=== PATIENT | female | born 1960 | race Caucasian/White ===

== ENCOUNTER → 2017-09-20 16:56 | Outpatient (CLI) | payer MEDICAID, SELFPAY ==
--- NOTE | 2017-09-20 17:00 | RAD_ITS ---
STUDY: X-RAY CHEST REASON FOR EXAM: Female, 56 years old. Epigastric pain TECHNIQUE: PA and lateral views of the chest. COMPARISON: None. FINDINGS: Lungs are adequately inflated. Mildly elevated left hemidiaphragm with left basilar atelectasis. Lungs are otherwise clear. There is no demonstrated pleural abnormality. Normal size heart. Normal mediastinum and savanna. Normal visualized pulmonary arteries. Normal visualized aortic arch and descending thoracic aorta. Normal visualized thoracic spine. Normal visualized ribs, clavicles, and shoulders. There is no demonstrated abnormality of the visualized soft tissue structures of the upper abdomen. RAD/Chest PA and Lateral IMPRESSION: No acute findings Electronically Signed: Rei Abreu DO at 18:08 EDT Tel , Service support ,
== END ==
PROVIDERS: Family Provider Family Medicine; PCP Family Medicine; Visit Provider Family Medicine
DX: R10.13 Epigastric pain (principal)
CPT/HCPCS: 71046

== ENCOUNTER → 2017-10-03 09:51 | Outpatient (CLI) | payer MEDICAID, SELFPAY ==
--- NOTE | 2017-10-03 09:54 | RAD_ITS ---
STUDY: AIR-CONTRAST UPPER GI SERIES. REASON FOR EXAM: Female, 57 years old. Epigastric pain and vomiting. FLUOROSCOPY TIME (if supplied): (0:48) minutes/seconds TECHNIQUE: The patient ingested barium. Multiple images of the esophagus stomach and duodenum were obtained. COMPARISON: None. FINDINGS: There is evidence of a small sliding hiatal hernia without gastroesophageal reflux. The remainder of the stomach and duodenum are unremarkable. There is no evidence of ulceration. RAD/Upper GI Series Only IMPRESSION: Small sliding hiatal hernia without gastroesophageal reflux at this time. Electronically Signed: Anil Higuera MD at 13:52 EDT Tel [phone], Service support ,
== END ==
PROVIDERS: Family Provider Family Medicine; PCP Family Medicine; Visit Provider Family Medicine
DX: R10.13 Epigastric pain (principal)
CPT/HCPCS: 74246

== ENCOUNTER → 2017-10-28 07:41 | Outpatient (CLI) | payer MEDICAID, SELFPAY ==
--- NOTE | 2017-10-28 07:56 | US_ITS ---
STUDY: ABDOMINAL ULTRASOUND - RIGHT UPPER QUADRANT REASON FOR VISIT: Female, 57 years old. Dyspepsia. Chest pain. History of hiatal hernia. TECHNIQUE: Ultrasound evaluation of the right upper quadrant was performed with real-time and static lacey-scale imaging. TECHNICAL QUALITY: Adequate. COMPARISON: CT of the abdomen and pelvis, February 18, 2016. FINDINGS: Liver: The liver measures 16.8 cm. There is increased echogenicity consistent with fatty infiltration. The bile ducts are within normal limits. There is hepatic color flow. The direction of portal flow is hepatopetal. There is no demonstrated mass lesion. Gallbladder: Normal distended gallbladder. The gallbladder wall measures 2.4 mm. There is a negative sonographic Chan's sign. There is no pericholecystic fluid. There are no gallstones. Common Bile Duct (C.B.D.): The common bile duct measures 4 mm. Pancreas: Normal size of the head, body and tail of the pancreas. The There is no demonstrated pancreatic mass or cyst. Right Kidney: Normal size of the right kidney. The right kidney measures 10.5 cm. Normal renal cortex. The right cortex measures 1.5 cm. There is no demonstrated renal mass or cyst. There is no right hydronephrosis. US/Abdomen Limited IMPRESSION: 1. Fatty infiltration of the liver without focal mass. 2. Echogenic pancreas suggesting fatty infiltration. Electronically Signed: Ward Key DO at 23:21 EDT Tel [phone], Service support ,
[2017-10-28 08:23] LABS: Hematocrit 46.6 % (37-47); Hemoglobin 15.4 g/dl (12.0-15.0); Mean Corpuscular Hgb 32.2 pg (27.0-32.0); Mean Corpuscular Volume 97.3 fL (81-99); Mean Platelet Vol. 9.7 fl (6.2-12.0); Platelet Count 246 K/mm3 (150-450); RBC Distribution Width CV 13.5 % (11.6-14.6); RBC Distribution Width SD 47.2 fl (35.1-43.9); Red Blood Count 4.79 M/mm3 (4.2-5.4); White Blood Count 8.1 K/mm3 (4.4-11.0)
[2017-10-28 08:29] LABS: Scan Indicated on CBC? Y/N NO
[2017-10-28 09:13] LABS: ALB/GLOB Ratio 0.8 RATIO (0.9-2.4); AST(SGOT) 25 U/L (15-37); Alanine Aminotransfer ALT/SGPT 33 U/L (13-56); Albumin, Serum 3.4 g/dL (3.2-5.0); Alkaline Phosphatase 120 U/L (45-117); Anion Gap 5 (5-15); BUN 8 mg/dL (7-18); BUN/Creat Ratio 10.1 RATIO (10-20); Calcium,Total 8.9 mg/dL (8.5-10.1); Chloride 106 mmol/L (98-107); Cholesterol 150 mg/dL (200); Creatinine, Serum 0.79 mg/dL (0.55-1.02); EST Glomerular Filtration Rate 79 mL/min (>60); Est Glom Filt Rate - Afr Amer 95 mL/min (>60); Globulin 4.2 g/dL (2.2-4.2); Glucose 141 mg/dL (74-106); High Density Lipoprotein 52 mg/dL; Potassium 3.6 mmol/L (3.5-5.1); Protein, Total 7.6 g/dL (6.4-8.2); Sodium Level 140 mmol/L (136-145); T4 Free Direct 1.24 ng/dL (0.76-1.46); Thyroid Stim Hormone (TSH) 1.27 uIU/mL (0.358-3.74); Triglycerides 217 mg/dL; Very Low Density Lipoprotein 43 mg/dL (5-40)
== END ==
PROVIDERS: Family Provider Family Medicine; PCP Family Medicine; Visit Provider Family Medicine
DX: R10.13 Epigastric pain (principal); E03.9 Hypothyroidism, unspecified; E78.5 Hyperlipidemia, unspecified; I67.1 Cerebral aneurysm, nonruptured
CPT/HCPCS: 36415; 76705; 80053; 80061; 84439; 84443; 85027

== ENCOUNTER 2018-05-08 07:26 | Day surgery (SDC) | payer MEDICAID, SELFPAY ==
[2018-04-25 15:25] VITALS: BMI 30.6
[2018-05-08] VITALS (7 sets, daily range): BP systolic 132–140; BP diastolic 80–86; PULSE 74–89; RESP 18; TEMP 36.3–36.7; O2SAT 96–100; BMI 28.1
--- NOTE | 2018-05-08 | GASB_PTH ---
PATIENT: SOPHIE STARKEY LOC: EN U#:[id number] AGE/SX: 57/F ROOM: RE05/08/[address]: Dr. Lauren Bruner MD : 1960 BED: DIS: 05/08/2018 SPEC #: [id number] RECD: 05/08/18 13:39 STATUS: PETER REBora #: [id number] GRACE: 05/08/18 00:[address]: Lauren Bruner DEPT: SURGICAL PATHOLOGY RECD BY: Abdelrahman Duarte ENTERED: 05/08/18 13:40 SP TYPE: Gastric Bx OTHR DR: Dr. Caleb Fountain MD Tissues: A - Gastric mucous membrane B - Gastric mucous membrane C - Ascending colon D - Transverse colon E - Rectum, NOS Procedures: Special Stain Group II Surgery Specimen Level IV Alcian Blue/PAS (control) HEADER OPERATION: Colonoscopy, EGD ([facility] [place]) PRE-OP DIAGNOSIS: GERD, screening colon TISSUE SUBMITTED: A - Antral biopsy for histo and H. pylori, B - GE junction biopsy, C - Proximal ascending colon polyp biopsy, D - Transverse colon polyp biopsy, E - Rectal polyp MICROSCOPIC DIAGNOSIS A. Antral biopsy: Mild gastritis. See microscopic description and comment. B. GE junction, biopsy: Fragments of gastroesophageal mucosa with focal intestinal metaplasia (goblet cell metaplasia) consistent with Gardner's esophagus. Focal chronic inflammation. Negative for dysplasia. See comment. C. Ascending colon polyp, biopsy: Fragments of tubular adenoma. D. Transverse colon polyp, biopsy: Fragments of tubular adenoma. E. Rectal colon polyp, biopsy: Fragments of tubular adenoma. SJ:cam 05/09/18 COMMENT A. The results of immunohistochemistry for Helicobacter pylori will be reported separately ([id number]). B. Alcian blue/PAS stain with matched control is used in the evaluation of the specimen. MICROSCOPIC DESCRIPTION Slides are reviewed. A. The specimen shows fragments of gastric mucosa with chronic inflammatory cell infiltrates in the lamina propria consisting of lymphocytes and plasma cells, consistent with mild chronic gastritis. GROSS DESCRIPTION A - Received in fixative is one container labeled with the patient's name and designated antral biopsy. The specimen consists of two irregular fragments of light roach soft tissue that in aggregate measure 0.5 x 0.3 x 0.1 cm. The specimen is totally submitted in one cassette. B - Received in fixative is one container labeled with the patient's name and designated GE junction biopsy. The specimen consists of three irregular fragments of light roach soft tissue that in aggregate measure 0.6 x 0.3 x 0.1 cm. The specimen is totally submitted in one cassette. C - Received in fixative is one container labeled with the patient's name and designated ascending polyp biopsy. The specimen consists of multiple irregular fragments of light roach soft tissue that in aggregate measure 2 x 0.5 x 0.1 cm. The specimen is totally submitted in one cassette. D - Received in fixative is one container labeled with the patient's name and designated transverse polyp biopsy. The specimen consists of multiple irregular fragments of light roach soft tissue that in aggregate measure 0.5 x 0.5 x 0.1 cm. The specimen is totally submitted in one cassette. E - Received in fixative is one container labeled with the patient's name and designated rectal polyp. The specimen consists of multiple irregular fragments of light roach soft tissue that in aggregate measure 0.5 x 0.5 x 0.1 cm. The specimen is totally submitted in one cassette. / SJ:cam 05/08/18 TC:1 CPT: 52144 x5, 94990
--- NOTE | 2018-05-08 08:15 | IMM_PTH ---
PATIENT: SOPHIE STARKEY LOC: EN U#:[id number] AGE/SX: 57/F ROOM: RE05/08/[address]: Dr. Lauren Bruner MD : 1960 BED: DIS: 05/08/2018 SPEC #: [id number] RECD: 05/08/18 14:03 STATUS: PETER CHIOMA #: [id number] GRACE: 05/08/18 08:[address]: Lauren Bruner DEPT: IMMUNOHISTOCHEMISTRY RECD BY: Fernanda Puckett ENTERED: 05/08/18 14:03 SP TYPE: IMMUNO OTHR DR: Dr. Caleb Fountain MD Tissues: A - Stomach, NOS Procedures: H Pylori (initial) PHYSICIAN & INSTITUTION [place] [id number] SPECIMEN INFORMATION: Tissue Source: A - Antral biopsy Clinical Info: GERD, screening colon Specimen Number: [id number] CPT code: 48155 METHODOLOGY: Deparaffinized sections of prefer/formalin-fixed tissue or PAP/DQ stained slides are incubated with monoclonal/polyclonal antibodies/oligonucleotide probes. Localization is made via biotin free immunoperoxidase method. Appropriate controls are performed and reacted as expected. Results on target cell population are indicated in the following table: RESULTS: ANTIBODY / CLONE RESULT Block A H Pylori (polyclonal) negative These tests were developed and their performance characteristics determined by [facility]. They may not have been cleared or approved by the U.S. Food and Drug Administration. The FDA has determined that such clearance or approval is not necessary. INTERPRETATION: A. Antral biopsy: Negative for Helicobacter pylori organisms. SJ:cam 05/09/18
--- NOTE | 2018-05-08 10:04 | OP.ENDO_ITS ---
Patient Name: Nerissa Beach Procedure Date: 05/08/2018 9:06 AM Date of : 1960 Age: 57 Procedure: Upper GI endoscopy Indications: Heartburn, Follow-up of gastro-esophageal reflux disease Providers: Lauren Bruner MD Medicines: Monitored Anesthesia Care Patient Profile: This is a 57 year old female. Complications: No immediate complications. Procedure: Pre-Anesthesia Assessment: - Prior to the procedure, a History and Physical was performed, and patient medications and allergies were reviewed. The patient's tolerance of previous anesthesia was also reviewed. The risks and benefits of the procedure and the sedation options and risks were discussed with the patient. All questions were answered, and informed consent was obtained. Prior Anticoagulants: The patient has taken no previous anticoagulant or antiplatelet agents. ASA Grade Assessment: II - A patient with mild systemic disease. After reviewing the risks and benefits, the patient was deemed in satisfactory condition to undergo the procedure. After obtaining informed consent, the endoscope was passed under direct vision. Throughout the procedure, the patient's blood pressure, pulse, and oxygen saturations were monitored continuously. The gastroscope was introduced through the mouth, and advanced to the second part of duodenum. The upper GI endoscopy was accomplished without difficulty. The patient tolerated the procedure well. Scope In: 9:17:54 AM Scope Out: 9:22:43 AM Total Procedure Duration Time 0 hours 4 minutes 49 seconds Findings: The Z-line was irregular and was found 35 cm from the incisors. Biopsies were taken with a cold forceps for histology. Patchy mild inflammation characterized by erythema was found in the gastric antrum. Biopsies were taken with a cold forceps for histology. Biopsies were taken with a cold forceps for Helicobacter pylori cultures. The examined duodenum was normal. Impression: - Z-line irregular, 35 cm from the incisors. Biopsied. - Gastritis. Biopsied. - Normal examined duodenum. Recommendation: - Await pathology results. - Discharge patient to home [Means]. - Use sucralfate tablets 1 gram PO QID for 2 weeks. - Use Prilosec (omeprazole) 40 mg PO daily [duration]. - Continue present medications. Procedure Code(s): --- Professional --- 26690, Esophagogastroduodenoscopy, flexible, transoral; with biopsy, single or multiple Diagnosis Code(s): --- Professional --- K22.8, Other specified diseases of esophagus K29.70, Gastritis, unspecified, without bleeding R12, Heartburn K21.9, Gastro-esophageal reflux disease without esophagitis CPT copyright 2017 [employer]. All rights reserved. The codes documented in this report are preliminary and upon clerical transcriber review may be revised to meet current compliance requirements. MD Lauren Beasley MD 05/08/2018 10:04:15 AM This report has been signed electronically. Number of Addenda: 0 Note Initiated On: 05/08/2018 9:06 AM
--- NOTE | 2018-05-08 10:10 | OP.ENDO_ITS ---
Patient Name: Nerissa Beach Procedure Date: 05/08/2018 9:24 AM Date of : 1960 Age: 57 Procedure: Colonoscopy Indications: Screening for colorectal malignant neoplasm Providers: Lauren Bruner MD Medicines: Monitored Anesthesia Care Patient Profile: This is a 57 year old female. Last Colonoscopy: none. The patient's first colonoscopy is today. Complications: No immediate complications. Procedure: Pre-Anesthesia Assessment: - Prior to the procedure, a History and Physical was performed, and patient medications and allergies were reviewed. The patient's tolerance of previous anesthesia was also reviewed. The risks and benefits of the procedure and the sedation options and risks were discussed with the patient. All questions were answered, and informed consent was obtained. Prior Anticoagulants: The patient has taken no previous anticoagulant or antiplatelet agents. ASA Grade Assessment: II - A patient with mild systemic disease. After reviewing the risks and benefits, the patient was deemed in satisfactory condition to undergo the procedure. After I obtained informed consent, the scope was passed under direct vision. Throughout the procedure, the patient's blood pressure, pulse, and oxygen saturations were monitored continuously. The Colonoscope was introduced through the anus and advanced to the cecum, identified by the appendiceal orifice, ileocecal valve and palpation. The colonoscopy was performed without difficulty. The patient tolerated the procedure well. The quality of the bowel preparation was good. Scope In: 9:26:06 AM Scope Withdrawal Time 0 hours 18 minutes 41 seconds Scope Out: 9:57:52 AM Total Procedure Duration Time 0 hours 31 minutes 46 seconds Findings: The perianal and digital rectal examinations were normal. Two sessile polyps were found in the transverse colon and proximal ascending colon. The polyps were less than 5 mm in size. These polyps were removed with a cold biopsy forceps. Resection and retrieval were complete. A less than 5 mm polyp was found in the rectum. The polyp was semi-pedunculated. The polyp was removed with a hot snare. Resection and retrieval were complete. The entire examined colon appeared normal on direct and retroflexion views. Multiple medium-mouthed diverticula were found in the sigmoid colon. Impression: - Two less than 5 mm polyps in the transverse colon and in the proximal ascending colon, removed with a cold biopsy forceps. Resected and retrieved. - One less than 5 mm polyp in the rectum, removed with a hot snare. Resected and retrieved. - The entire examined colon is normal on direct and retroflexion views. Recommendation: - Discharge patient to home. - High fiber diet [Duration]. - Await pathology results. - Repeat colonoscopy in 3 - 5 years for surveillance based on pathology results. - Continue present medications. Procedure Code(s): --- Professional --- 53728, Colonoscopy, flexible; with removal of tumor(s), polyp(s), or other lesion(s) by snare technique 21966, 57, Colonoscopy, flexible; with biopsy, single or multiple Diagnosis Code(s): --- Professional --- Z12.11, Encounter for screening for malignant neoplasm of colon D12.3, Benign neoplasm of transverse colon (hepatic flexure or splenic flexure) D12.2, Benign neoplasm of ascending colon K62.1, Rectal polyp CPT copyright 2017 [employer]. All rights reserved. The codes documented in this report are preliminary and upon superintendent marine oil terminal review may be revised to meet current compliance requirements. MD Lauren Beasley MD 05/08/2018 10:09:50 AM This report has been signed electronically. Number of Addenda: 0 Note Initiated On: 05/08/2018 9:24 AM
== END 2018-05-08 11:09 | disposition home or self-care (01) ==
LOC: EN 07:26 → AC 07:29
PROVIDERS: Family Provider Family Medicine; PCP Family Medicine; Referring Provider Surgery; Visit Provider Surgery
PROC: 0DJD8ZZ Inspection of Lower Intestinal Tract, Via Natural or Artificial Opening Endoscopic (ICD-10-PCS; CPT 45378; principal; 2018-05-08 08:10)
DX: Z12.11 Encounter for screening for malignant neoplasm of colon (principal); D12.2 Benign neoplasm of ascending colon; D12.3 Benign neoplasm of transverse colon; D12.8 Benign neoplasm of rectum; K29.70 Gastritis, unspecified, without bleeding; K21.9 Gastro-esophageal reflux disease without esophagitis; K22.8 Other specified diseases of esophagus; I10 Essential (primary) hypertension; E78.00 Pure hypercholesterolemia, unspecified; E06.9 Thyroiditis, unspecified; F32.9 Major depressive disorder, single episode, unspecified; F41.9 Anxiety disorder, unspecified; M19.90 Unspecified osteoarthritis, unspecified site; Z78.0 Asymptomatic menopausal state; Z86.73 Personal history of transient ischemic attack (TIA), and cerebral infarction without residual deficits; Z87.19 Personal history of other diseases of the digestive system; Z87.01 Personal history of pneumonia (recurrent); Z79.899 Other long term (current) drug therapy; F17.200 Nicotine dependence, unspecified, uncomplicated
CPT/HCPCS: 45380; 45385; 43239; 88305; 88313; 88342; J7120

== ENCOUNTER → 2018-06-13 16:12 | Outpatient (CLI) | payer MEDICAID, SELFPAY ==
[2018-05-08 07:56] VITALS: BMI 28.1
--- NOTE | 2018-06-13 16:15 | RAD_ITS ---
STUDY: X-RAY - THORACIC SPINE REASON FOR EXAM: Female, 57 years old. Pain without injury. TECHNIQUE: 3 view(s) of the thoracic spine were obtained. COMPARISON: None. FINDINGS: No acute cardiopulmonary process is evident within the [id number]. No acute upper abdominal process is evident. Normal cervical and thoracic vertebral body height and alignment. There is evidence of cervical disc degeneration at C4-C5, C5-C6 and C6-C7 incompletely evaluated in the swimmer's view. There is minimal multilevel thoracic degenerative disc disease. Slight thoracolumbar scoliosis. RAD/Thoracic Spine 3 Views IMPRESSION: Cervical and thoracic spondylosis as described above. Mild to moderate in the mid to low cervical spine. Mild of the thoracic spine. No evidence of acute spinal fracture or traumatic subluxation. Electronically Signed: Tab Vallejo MD at 14:51 EDT Tel , Service support ,
== END ==
PROVIDERS: Family Provider Family Medicine; PCP Family Medicine; Referring Provider Nurse Practitioner Family; Visit Provider Nurse Practitioner Family
DX: M47.814 Spondylosis without myelopathy or radiculopathy, thoracic region (principal)
CPT/HCPCS: 72072

== ENCOUNTER 2018-09-25 06:33 | Day surgery (SDC) | payer MEDICAID, SELFPAY ==
[2018-05-08 07:56] VITALS: BMI 28.1
[2018-09-25 07:07] VITALS: BP 121/73; PULSE 85; RESP 16; TEMP 36.3; O2SAT 96; BMI 28.1
[2018-09-25 07:26] LABS: Hematocrit 44.9 % (37-47); Hemoglobin 14.8 g/dl (12.0-15.0); Mean Corpuscular Hgb 31.8 pg (27.0-32.0); Mean Corpuscular Volume 96.6 fL (81-99); Mean Platelet Vol. 9.8 fl (6.2-12.0); Platelet Count 282 K/mm3 (150-450); RBC Distribution Width CV 13.6 % (11.6-14.6); RBC Distribution Width SD 48.3 fl (35.1-43.9); Red Blood Count 4.65 M/mm3 (4.2-5.4); White Blood Count 7.5 K/mm3 (4.4-11.0)
[2018-09-25 07:36] LABS: Scan Indicated on CBC? Y/N NO
[2018-09-25 07:47] LABS: ALB/GLOB Ratio 0.8 RATIO (0.9-2.4); AST(SGOT) 26 U/L (15-37); Alanine Aminotransfer ALT/SGPT 35 U/L (13-56); Albumin, Serum 3.2 g/dL (3.2-5.0); Alkaline Phosphatase 107 U/L (45-117); Anion Gap 4 (5-15); BUN 14 mg/dL (7-18); Calcium,Total 8.6 mg/dL (8.5-10.1); Chloride 106 mmol/L (98-107); Cholesterol 168 mg/dL (200); Creatinine, Serum 0.82 mg/dL (0.55-1.02); EST Glomerular Filtration Rate 75 mL/min (>60); Est Glom Filt Rate - Afr Amer 91 mL/min (>60); Estimated Creatinine Clearance 58.42 ml/min; Globulin 3.9 g/dL (2.2-4.2); Glucose 110 mg/dL (74-106); High Density Lipoprotein 51 mg/dL; Potassium 3.6 mmol/L (3.5-5.1); Protein, Total 7.1 g/dL (6.4-8.2); Sodium Level 139 mmol/L (136-145); Thyroid Stim Hormone (TSH) 2.42 uIU/mL (0.358-3.74); Triglycerides 244 mg/dL; Very Low Density Lipoprotein 49 mg/dL (5-40)
[2018-09-25] MEDS: MethylPREDNISolone Acetate 80 MG/ML Vial (07:59)
[2018-09-25] MEDS: Bupivacaine 0.25% 30 ML Vial (07:59)
--- NOTE | 2018-09-25 08:09 | OP.PCM_ITS ---
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: Chronic Report of Operation Date of Procedure: 09/25/18 Pre-Operative Diagnosis: Thoracic spondylosis, thoracic degenerative disc disease, thoracic facet arthropathy Post-Operative Diagnosis: Thoracic spondylosis, thoracic degenerative disc disease, thoracic facet arthropathy Surgery/Procedure Performed:: Right thoracic facet steroid injection T5, T6, T7, T8 Description of Surgical Findings:: PROCEDURE: Right-sided thoracic facet steroid injection T5, T6, T7, T8 PREOPERATIVE DIAGNOSIS: Thoracic spondylosis, thoracic degenerative disc disease, thoracic facet arthropathy POSTOPERATIVE DIAGNOSIS: Thoracic spondylosis, thoracic degenerative disc disease, thoracic facet arthropathy ANESTHESIA: MAC COMPLICATIONS: None BLOOD LOSS: Minimal PROCEDURE IN DETAIL: History and physical today was reviewed. Risks and benefits of the procedure were explained. The patient understood, agreed to our procedure, and informed consent was obtained. IV inserted per routine protocol. The patient was taken to the operating room, placed in a prone position with a pillow positioned underneath the abdomen. The right side of her upper back was prepped and draped in a sterile fashion using iodine x3. Under fluoroscopy guidance, on AP view, T5 through T8 vertebral bodies were visualized. Skin and subcutaneous tissues were anesthetized with approximately 5 mL of 1% lidocaine using a 25-gauge regular needle. Under direct visualization with fluoroscopy at approximately 15-degree angle, starting on the right T5, ending on the right T8, passing through the T6, & T7 using a 22-gauge 3 1/2-inch spinal needle, the needle was advanced via the skin. The tip of the needle was maneuvered and directed towards the superior and medial gutter of the transverse process at the vicinity of the medial branch. Once the tip of the needle was in contact with the bone, the needle pulled approximately 2 mm off the bone. After negative aspiration of blood with CSF and confirmation of AP as well as oblique view, a total of 6 mL of preservative-free 0.25% Marcaine with 80 mg of Depo- Medrol was injection in divided doses between those 4 levels. The needles were then removed intact. The patient experienced no signs or symptoms intrathecal, intravascular injection. The patient experienced no paraesthesia. The procedure was completed without any apparent difficult, any complication. The patient appeared to tolerate well. ASSESSMENT AND PLAN: This is a 57-year-old Female with thoracic spondylosis, thoracic degenerative disc disease, thoracic facet arthropathy status post right-sided thoracic facet steroid injection T5-T8. The patient will continue her current medications. The patient will follow in approximately 2 weeks for reevaluation.
[2018-09-25 08:10] VITALS: BP 121/73; BP 99/59; PULSE 85; RESP 16; TEMP 36.2; O2SAT 96
--- NOTE | 2018-09-25 08:10 | RAD_ITS ---
PROCEDURE: Right T5-T8 facet joint block. DATE OF EXAMINATION: September 25, 2018. INDICATION: Female, 57 years old. Chronic back pain. FLUOROSCOPY TIME (if supplied): (0:18) minutes/seconds. 3 cone down views were obtained. RAD/Thoracic Spine 3 Views IMPRESSION: Intraoperative imaging provided for right T5-T8 facet joint injection. Electronically Signed: Anil Higuera, at 15:06 EDT , Service support ,
[2018-09-25 08:15] VITALS: BP 115/69; BP 121/73; PULSE 82; RESP 16; O2SAT 95
[2018-09-25 08:20] VITALS: BP 121/73; BP 122/69; PULSE 81; RESP 16; O2SAT 96
[2018-09-25 08:25] VITALS: BP 112/74; BP 121/73; PULSE 81; RESP 16; TEMP 36.3; O2SAT 97
[2018-09-25 08:26] LABS: Vitamin D,25 Hydroxy 25.8 ng/mL (29.95-100.01)
== END 2018-09-25 09:05 | disposition home or self-care (01) ==
LOC: SDC 06:35 → AC 06:36
PROVIDERS: Family Provider Family Medicine; PCP Family Medicine; Referring Provider Anesthesiology Pain Medicine; Visit Provider Anesthesiology Pain Medicine
PROC: 3E0R3BZ Introduction of Anesthetic Agent into Spinal Canal, Percutaneous Approach (ICD-10-PCS; CPT 62281; principal; 2018-09-25 08:05)
DX: M47.814 Spondylosis without myelopathy or radiculopathy, thoracic region (principal); M51.34 Other intervertebral disc degeneration, thoracic region; M46.94 Unspecified inflammatory spondylopathy, thoracic region; M50.30 Other cervical disc degeneration, unspecified cervical region; M47.812 Spondylosis without myelopathy or radiculopathy, cervical region; M79.7 Fibromyalgia; I10 Essential (primary) hypertension; E03.9 Hypothyroidism, unspecified; E78.00 Pure hypercholesterolemia, unspecified; K21.9 Gastro-esophageal reflux disease without esophagitis; F32.9 Major depressive disorder, single episode, unspecified; F41.9 Anxiety disorder, unspecified; Z78.0 Asymptomatic menopausal state; Z87.19 Personal history of other diseases of the digestive system; Z86.73 Personal history of transient ischemic attack (TIA), and cerebral infarction without residual deficits; Z79.891 Long term (current) use of opiate analgesic; Z79.899 Other long term (current) drug therapy; F17.200 Nicotine dependence, unspecified, uncomplicated
CPT/HCPCS: 64490; 64491; 64492; 36415; 72072; 80053; 80061; 82306; 84443; 85027; J7120

== ENCOUNTER → 2018-11-02 | Outpatient (CLI) | payer MEDICAID, SELFPAY ==
--- NOTE | 2018-11-02 16:15 | RAD_ITS ---
STUDY: X-RAY - CERVICAL SPINE REASON FOR EXAM: Female, 58 years old. PAIN AND STIFFNESS IN NECK FOR A LONG TIME. NO KNOWN RECENT INJURY TO NECK. TECHNIQUE: 5 view(s) of the cervical spine were obtained. COMPARISON: 05/09/2015 FINDINGS: Stable 3 mm of C4-5 anterolisthesis. Stable degenerative disc disease at C5-6, C6-7, and C7-T1. Stable multilevel facet disease. Prevertebral soft tissues are normal. Significant bilateral foraminal stenoses are present at C5-6, C6-7, and C7-T1. Moderate right foraminal stenosis at C4-5. Base of dens is intact. RAD/Cerv Spine 4 or 5 Views IMPRESSION: Multilevel degenerative disease as described. Stable 3 mm of C4-5 anterolisthesis. Electronically Signed: Javier Malik MD at 16:43 EDT Tel , Service support ,
== END | disposition home or self-care (01) ==
LOC: RAD.FUTURE 16:13
PROVIDERS: Family Provider Family Medicine; PCP Family Medicine; Referring Provider Anesthesiology Pain Medicine; Visit Provider Anesthesiology Pain Medicine
DX: M47.812 Spondylosis without myelopathy or radiculopathy, cervical region (principal); M50.30 Other cervical disc degeneration, unspecified cervical region
CPT/HCPCS: 72050

== ENCOUNTER 2019-01-01 06:41 | Day surgery (SDC) | payer MEDICAID, SELFPAY ==
[2019-01-01] VITALS (7 sets, daily range): BP systolic 114–140; BP diastolic 70–96; PULSE 55–94; RESP 16–18; TEMP 36.2–36.8; O2SAT 94–99; BMI 28.5
[2019-01-01] MEDS: Lactated Ringers 1,000 ML 100 ML IV (07:16)
--- NOTE | 2019-01-01 08:00 | RAD_ITS ---
STUDY: X-RAY - CERVICAL SPINE REASON FOR EXAM: Female, 58 years old. Multilevel radiofrequency ablation. TECHNIQUE: 12 C-arm view(s) of the cervical spine were obtained. 32.1 seconds fluoroscopy time COMPARISON: None FINDINGS: These limited field of view images show multilevel facet joint needle placement. Correlate with procedure note. Electronically Signed: Bret Nix MD at 22:25 EDT , Service support , RAD/Cerv Spine 4 or 5 Views
[2019-01-01] MEDS: MethylPREDNISolone Acetate 80 MG/ML Vial (08:11)
[2019-01-01] MEDS: Bupivacaine 0.25% 30 ML Vial (08:11)
--- NOTE | 2019-01-01 10:00 | OP.PCM_ITS ---
Report of Operation Date of Procedure: 01/01/19 Description of Surgical Findings:: PROCEDURE: Right-sided cervical radiofrequency ablation of the medial branch at C4, C5, C6, C7 PREOPERATIVE DIAGNOSES: Cervical spondylosis, cervical degenerative disc disease, and cervical facet arthropathy POSTOPERATIVE DIAGNOSES: Cervical spondylosis, cervical degenerative disc disease, and cervical facet arthropathy ANESTHESIA: MAC COMPLICATIONS: None BLOOD LOSS: Minimal PROCEDURE IN DETAIL: History and physical today was reviewed. Risks and benefits of the procedure were explained. The patient understood, agreed to our procedure, and informed consent was obtained. IV inserted per routine protocol. The patient was taken to the operating room, placed in a prone position with a pillow positioned underneath the chest. The neck area was prepped and draped in a sterile fashion using iodine x3. Under fluoroscopy guidance, on AP view, C4 through C7 vertebral bodies were visualized. Skin and subcutaneous tissues were anesthetized with approximately 10 mL of 1% lidocaine using a 25- gauge regular needle. Under direct visualization with fluoroscopy at approximately 15-degree angle, starting on the right C4, ending on the right C7, passing through the C5-C6 using a 20-gauge 10 cm with a 10 mm curved active tip radiofrequency ablation needle, the needle was passed through the skin. The tip of the needle was maneuvered and directed towards the apophyseal junction of each corresponding vertebra. Once the tip of the needle was at the vicinity of the medial branch and in contact with the bone, the needle was redirected more lateral towards the medial branch. Once in contact with the medial branch, the stylet of each needle was then removed. After negative aspiration of blood with CSF and confirmation of AP as well as oblique view, the radiofrequency ablation probe was then inserted at each level. Impedance was then recorded at C4 to be 290, at C5 245, at C6 279, at C7 315 ohms. Motor-evoked potential was then initiated to 1.5 volt without any motor response at each corresponding level. The radiofrequency ablation probe was then removed intact and a total of 4 mL preservative-free 1% lidocaine was injected in divided doses between those 4 levels after negative aspiration of blood with CSF. The radiofrequency ablation probe was then reinserted after confirmation of AP, oblique as well as lateral view. Radiofrequency ablation was then initiated to 80 degrees Celsius for 60 seconds at each level. Once concluded, the probe was then removed intact and a total of 3 mL of preservative-free 0.25% Marcaine with 40 mg Depo-Medrol was injected in divided doses between those 4 levels. The needles were then removed intact. The patient experienced no signs or symptoms of intrathecal, intravascular injection. The patient experienced no paraesthesia. The procedure was completed without any apparent difficulty, any complication. The patient appeared to tolerate well. Sensory as well as motor exam was unchanged from prior to procedure. ASSESSMENT AND PLAN: This is a 58-year-old female with cervical spondylosis, cervical degenerative disc disease, and cervical facet arthropathy, status post right-sided radiofrequency ablation of the medial branch C4 through C7. The patient will continue her current medications. The patient will follow up in approximately 2 weeks fo reevaluation.
== END 2019-01-01 09:17 | disposition home or self-care (01) ==
LOC: SDC 06:42 → AC 06:43
PROVIDERS: Family Provider Family Medicine; PCP Family Medicine; Referring Provider Anesthesiology Pain Medicine; Visit Provider Anesthesiology Pain Medicine
PROC: (CPT 64633; principal; 2019-01-01 07:45)
DX: M47.812 Spondylosis without myelopathy or radiculopathy, cervical region (principal); M50.30 Other cervical disc degeneration, unspecified cervical region; M46.92 Unspecified inflammatory spondylopathy, cervical region; M47.814 Spondylosis without myelopathy or radiculopathy, thoracic region; M79.7 Fibromyalgia; E03.9 Hypothyroidism, unspecified; I10 Essential (primary) hypertension; K21.9 Gastro-esophageal reflux disease without esophagitis; E78.00 Pure hypercholesterolemia, unspecified; F41.9 Anxiety disorder, unspecified; F32.9 Major depressive disorder, single episode, unspecified; Z87.19 Personal history of other diseases of the digestive system; Z78.0 Asymptomatic menopausal state; Z79.891 Long term (current) use of opiate analgesic; Z79.899 Other long term (current) drug therapy; F17.200 Nicotine dependence, unspecified, uncomplicated
CPT/HCPCS: 64633; 64634 ×2; 72050; 76000; J7120

== ENCOUNTER → 2019-02-02 16:21 | Outpatient (CLI) | payer MEDICAID, SELFPAY ==
[2019-01-01 07:01] VITALS: BMI 28.5
--- NOTE | 2019-02-02 16:23 | RAD_ITS ---
STUDY: X-RAY CHEST REASON FOR EXAM: Female, 58 years old. Cough TECHNIQUE: PA and lateral views of the chest. COMPARISON: 09/20/2017 FINDINGS: The lungs are clear and expanded. There is no demonstrated pleural abnormality. Normal size heart. Normal mediastinum and savanna. Normal visualized pulmonary arteries. Normal visualized aortic arch and descending thoracic aorta. Normal visualized thoracic spine. Normal visualized ribs, clavicles, and shoulders. There is no demonstrated abnormality of the visualized soft tissue structures of the upper abdomen. RAD/Chest PA and Lateral IMPRESSION: Normal x-ray examination of the chest. Electronically Signed: Rei Abreu DO at 17:07 EST Tel , Service support ,
== END ==
PROVIDERS: Family Provider Family Medicine; PCP Family Medicine; Referring Provider Family Medicine; Visit Provider Family Medicine
DX: R05 Cough (principal)
CPT/HCPCS: 71046

== ENCOUNTER 2019-03-12 05:53 | Day surgery (SDC) | payer MEDICAID, SELFPAY ==
[2019-01-01 07:01] VITALS: BMI 28.5
[2019-03-12 06:15] VITALS: BP 135/76; PULSE 90; RESP 16; TEMP 37; O2SAT 96; BMI 28.2
[2019-03-12] MEDS: Lactated Ringers 1,000 ML 100 ML IV (06:24)
--- NOTE | 2019-03-12 07:30 | RAD_ITS ---
PROCEDURE: Left C4-C7 radiofrequency ablation. DATE OF EXAMINATION: March 12, 2019. INDICATION: Female, 58 years old. Chronic neck pain. FLUOROSCOPY TIME (if supplied): (25.3 seconds) minutes/seconds Intraoperative imaging provided for left C4-C7 radiofrequency ablation. RAD/Cerv Spine 4 or 5 Views IMPRESSION: Intraoperative fluoroscopic services provided for left C4-C7 radiofrequency ablation. Electronically Signed: Anil Higuera, at 10:01 EST , Service support ,
[2019-03-12] MEDS: MethylPREDNISolone Acetate 80 MG/ML Vial (07:35)
[2019-03-12] MEDS: Bupivacaine 0.25% 30 ML Vial (07:35)
[2019-03-12 08:00] VITALS: BP 117/76; BP 135/76; PULSE 90; RESP 18; TEMP 36.1; O2SAT 100
[2019-03-12 08:05] VITALS: BP 114/78; BP 135/76; PULSE 90; RESP 18; O2SAT 92
[2019-03-12 08:10] VITALS: BP 110/67; BP 135/76; PULSE 88; RESP 18; O2SAT 93
[2019-03-12 08:15] VITALS: BP 108/65; BP 135/76; PULSE 87; RESP 18; TEMP 36.5; O2SAT 93
[2019-03-12 08:32] VITALS: BP 135/76
--- NOTE | 2019-03-12 11:45 | PCM.OPRPT ---
Report of Operation Date of Procedure: 03/12/19 Description of Surgical Findings:: PREOPERATIVE DIAGNOSIS: Cervical spondylosis, cervical degenerative disc disease, cervical facet arthropathy POSTOPERATIVE DIAGNOSIS: Cervical spondylosis, cervical degenerative disc disease, cervical facet arthropathy PROCEDURE PERFORMED: Left-sided radiofrequency ablation of the medial branch at C4, C5, C6, and C7. ANESTHESIA: MAC. BLOOD LOSS: Minimal. COMPLICATIONS: None. DESCRIPTION OF PROCEDURE: History and physical of today was reviewed. Risks and benefits of the procedure were explained. The patient understood and agreed to proceed. Informed consent was obtained. IV inserted per routine protocol. The patient was taken to the operating room and placed in the prone position with a pillow positioned underneath the chest. The neck area was prepped and draped in a sterile fashion using iodine x3. Under fluoroscopy guidance on an AP view, the C4 through C7 vertebral bodies were visualized. The skin and subcutaneous tissue was anesthetized with approximately 10 mL of 1% lidocaine using a 25-gauge regular needle. Under direct visualization on fluoroscopy on a lateral view, using a 21-gauge 10-cm with a 10-mm curved active-tip radiofrequency ablation needle, the needle was passed through the skin. The tip of the needle was maneuvered and directed towards the epiphyseal junction of each corresponding vertebra, starting on the left C4, ending on the left C7, passing through the C5 and C6. Once the tip of the needle was at the vicinity of the medial branch and at the middle of the trapezoid on the lateral view, the stylette of each needle was then removed. After negative aspiration of blood or CSF and confirmation on AP, oblique as well as lateral view, radiofrequency ablation probe was then inserted at each level. Impedance was then recorded at C4 to be 254 ohm, at C5 to be 275 ohm, at C6 to be 259 ohm, and at C7 to be 254 ohm. Motor-evoked potential was then initiated to 1.5 volt without any motor response to each corresponding level or the left arm. The probe was then removed intact and a total of 4 mL of preservative-free 1% lidocaine was injected in divided doses between those four levels after negative aspiration of blood or CSF. After repeated confirmation, the radiofrequency ablation probe was then inserted and after repeated confirmation on AP, oblique as well as lateral view, radiofrequency ablation was then initiated to approximately 80 degree Celsius for 60 second at each level. Once concluded, the probe was then removed intact. A total of 4 mL of preservative-free 0.25% Marcaine with 40 mg of Depo-Medrol was injected in divided doses between those four levels. The needles were then removed intact. The patient experienced no sign or symptoms of intrathecal or intravascular injection. The patient experienced no paresthesia. The procedure was completed without any apparent difficulty or any complications. The patient appeared to tolerate it well. Sensory as well as motor exam was unchanged from prior to the procedure. ASSESSMENT AND PLAN: This is a 58-year-old female with cervical spondylosis, cervical degenerative disease, cervical facet arthropathy status post left-sided cervical radiofrequency ablation of the medial branch C4-C7 patient will continue current medications patient found approximately 2 weeks for reevaluation.
== END 2019-03-12 08:47 | disposition home or self-care (01) ==
LOC: SDC 05:53 → AC 05:55 → ACINP 08:47
PROVIDERS: Family Provider Family Medicine; PCP Family Medicine; Referring Provider Anesthesiology Pain Medicine; Visit Provider Anesthesiology Pain Medicine
PROC: (CPT 64633; principal; 2019-03-12 07:15)
DX: M47.812 Spondylosis without myelopathy or radiculopathy, cervical region (principal); M50.30 Other cervical disc degeneration, unspecified cervical region; M47.814 Spondylosis without myelopathy or radiculopathy, thoracic region; I10 Essential (primary) hypertension; E78.5 Hyperlipidemia, unspecified; E03.9 Hypothyroidism, unspecified; Z79.899 Other long term (current) drug therapy; Z79.891 Long term (current) use of opiate analgesic
CPT/HCPCS: 64633; 64634 ×2; 72050; 76000; J7120

== ENCOUNTER 2019-04-16 08:23 | Day surgery (SDC) | payer MEDICAID, SELFPAY ==
[2019-04-16] VITALS (7 sets, daily range): BP systolic 114–125; BP diastolic 65–86; PULSE 91–95; RESP 16–18; TEMP 36.6–36.8; O2SAT 94–98; BMI 28.4
[2019-04-16] MEDS: Lactated Ringers 1,000 ML 100 ML IV (08:55)
--- NOTE | 2019-04-16 09:13 | PCM.OPRPT ---
Report of Operation Date of Procedure: 04/16/19 Description of Surgical Findings:: PREOPERATIVE DIAGNOSIS: Thoracic spondylosis, thoracic degenerative disc disease, thoracic facet arthropathy POSTOPERATIVE DIAGNOSIS: Thoracic spondylosis, thoracic degenerative disc disease, thoracic facet arthropathy PROCEDURE PERFORMED: Right-sided thoracic facet steroid injection, T5, T6, T7, and T8. ANESTHESIA: MAC. BLOOD LOSS: Minimal. COMPLICATIONS: None. DESCRIPTION OF PROCEDURE: History and physical of today was reviewed. Risks and benefits of the procedure were explained. The patient understood and agreed to proceed. Informed consent was obtained. IV inserted per routine protocol. The patient was taken to the operating room and placed in the prone position with a pillow positioned underneath the chest. The mid back area was prepped and draped in a sterile fashion using iodine x3. Under fluoroscopy guidance on AP view, the T5 through T8 vertebral bodies were visualized. The skin and subcutaneous tissue was anesthetized with approximately 5 mL of 1% lidocaine using a 25-gauge regular needle. Under direct visualization on fluoroscopy, at approximately 15-degree angle, starting on the right T5, ending on the right T8, passing through the T6 and T7, using a 22-gauge 3-1/2-inch spinal needle, the needle was passed through the skin. The tip of the needle was maneuvered and directed towards the epiphyseal junction of each corresponding vertebra. Once the tip of the needle was at the vicinity of the medial branch and in contact with the bone, the needle was pulled approximately 2 mm off the bone. After negative aspiration for blood or CSF and confirmation on AP as well as oblique view and lateral view, a total of 6 mL of preservative-free 0.25% Marcaine with 80 mg of Depo-Medrol was injected in divided doses between those four levels. The needles were then removed intact. The patient experienced no sign or symptoms of intrathecal or intravascular injection. The patient experienced no paresthesia. The procedure was completed without any apparent difficulty or any complications. The patient appeared to tolerate it well. ASSESSMENT AND PLAN: This is a 58-year-old female with thoracic spondylosis, thoracic degenerative disc disease, thoracic facet arthropathy status post right-sided thoracic facet steroid injection T5-T8, patient will continue her current medications, patient will follow approximately 2 weeks for reevaluation.
--- NOTE | 2019-04-16 09:35 | RAD_ITS ---
PROCEDURE: Right T5-T8 thoracic facet block. DATE OF EXAMINATION: April 16, 2019 INDICATION: Female, 58 years old. Back pain. FLUOROSCOPY TIME (if supplied): (22 seconds) minutes/seconds. 4 intraoperative images were obtained. Intraoperative imaging provided for right T5-T8 transforaminal block. RAD/Thoracic Spine Min 4 Views IMPRESSION: Intraoperative imaging provided for right T5-T8 transforaminal block. Electronically Signed: Anil Higuera, at 9:30 EST , Service support ,
== END 2019-04-16 10:33 | disposition home or self-care (01) ==
LOC: SDC 08:24 → AC 08:25
PROVIDERS: Family Provider Family Medicine; PCP Family Medicine; Referring Provider Anesthesiology Pain Medicine; Visit Provider Anesthesiology Pain Medicine
PROC: 3E0R3BZ Introduction of Anesthetic Agent into Spinal Canal, Percutaneous Approach (ICD-10-PCS; CPT 62281; principal; 2019-04-16 09:30)
DX: M51.34 Other intervertebral disc degeneration, thoracic region (principal); M47.814 Spondylosis without myelopathy or radiculopathy, thoracic region; M47.812 Spondylosis without myelopathy or radiculopathy, cervical region; M50.30 Other cervical disc degeneration, unspecified cervical region; M79.7 Fibromyalgia; I10 Essential (primary) hypertension; E78.5 Hyperlipidemia, unspecified; K21.9 Gastro-esophageal reflux disease without esophagitis; F32.9 Major depressive disorder, single episode, unspecified; F41.9 Anxiety disorder, unspecified; F17.200 Nicotine dependence, unspecified, uncomplicated; Z79.891 Long term (current) use of opiate analgesic; Z79.899 Other long term (current) drug therapy; Z78.0 Asymptomatic menopausal state
CPT/HCPCS: 01992; 64490; 64491; 64492; 72074; J7120

== ENCOUNTER 2019-05-14 07:31 | Day surgery (SDC) | payer MEDICAID, SELFPAY ==
[2019-04-16 08:40] VITALS: BMI 28.4
[2019-05-14 07:52] VITALS: BP 136/61; PULSE 90; RESP 15; TEMP 36.6; O2SAT 98; BMI 29.2
[2019-05-14] MEDS: Lactated Ringers 1,000 ML 100 ML IV (08:00)
--- NOTE | 2019-05-14 08:15 | RAD_ITS ---
STUDY: X-RAY - THORACIC SPINE REASON FOR EXAM: Female, 58 years old. T5-T8 FACET INJECTIONS TECHNIQUE: 3 coned-down intraoperative view(s) of the thoracic spine were obtained. COMPARISON: None. FINDINGS: Intraoperative imaging provided for left T5-T8 facet injections. RAD/Thoracic Spine 3 Views IMPRESSION: Intraoperative imaging provided for left T5-T8 facet injections. Electronically Signed: Anil Higuera, at 12:19 EST , Service support ,
[2019-05-14] MEDS: Bupivacaine 0.25% 30 ML Vial (08:18)
[2019-05-14] MEDS: MethylPREDNISolone Acetate 80 MG/ML Vial (08:19)
[2019-05-14 08:25] VITALS: BP 136/61; BP 138/79; PULSE 84; RESP 18; TEMP 36.4; O2SAT 92
[2019-05-14 08:30] VITALS: BP 124/81; BP 136/61; PULSE 84; RESP 16; O2SAT 94
[2019-05-14 08:35] VITALS: BP 121/72; BP 136/61; PULSE 82; RESP 18; O2SAT 93
[2019-05-14 08:39] VITALS: BP 104/72; BP 136/61; PULSE 83; RESP 18; TEMP 36.3; O2SAT 95
[2019-05-14 08:56] VITALS: BP 136/61
--- NOTE | 2019-05-14 11:58 | PCM.OPRPT ---
Report of Operation Date of Procedure: 05/14/19 Description of Surgical Findings:: PREOPERATIVE DIAGNOSIS: Thoracic spondylosis, thoracic degenerative disc disease, thoracic facet arthropathy POSTOPERATIVE DIAGNOSIS: Thoracic spondylosis, thoracic degenerative disc disease, thoracic facet arthropathy PROCEDURE PERFORMED: Left sided thoracic facet steroid injection, T5, T6, T7, and T8. ANESTHESIA: MAC. BLOOD LOSS: Minimal. COMPLICATIONS: None. DESCRIPTION OF PROCEDURE: History and physical of today was reviewed. Risks and benefits of the procedure were explained. The patient understood and agreed to proceed. Informed consent was obtained. IV inserted per routine protocol. The patient was taken to the operating room and placed in the prone position with a pillow positioned underneath the chest. The mid back area was prepped and draped in a sterile fashion using iodine x3. Under fluoroscopy guidance on AP view, the T5 through T8 vertebral bodies were visualized. The skin and subcutaneous tissue was anesthetized with approximately 5 mL of 1% lidocaine using a 25-gauge regular needle. Under direct visualization on fluoroscopy, at approximately 15-degree angle, starting on the left T5, ending on the left T8, passing through the T6 and T7, using a 22-gauge 3-1/2-inch spinal needle, the needle was passed through the skin. The tip of the needle was maneuvered and directed towards the epiphyseal junction of each corresponding vertebra. Once the tip of the needle was at the vicinity of the medial branch and in contact with the bone, the needle was pulled approximately 2 mm off the bone. After negative aspiration for blood or CSF and confirmation on AP as well as oblique view and lateral view, a total of 6 mL of preservative-free 0.25% Marcaine with 80 mg of Depo-Medrol was injected in divided doses between those four levels. The needles were then removed intact. The patient experienced no sign or symptoms of intrathecal or intravascular injection. The patient experienced no paresthesia. The procedure was completed without any apparent difficulty or any complications. The patient appeared to tolerate it well. ASSESSMENT AND PLAN: This is a 58-year-old female with thoracic spondylosis, thoracic degenerative disc disease, thoracic facet arthropathy status post left-sided thoracic facet steroid injection T5-T8 patient will continue her current medications patient will follow approximately 2 weeks for reevaluation.
== END 2019-05-14 09:08 | disposition home or self-care (01) ==
LOC: SDC 07:31 → AC 07:32
PROVIDERS: PCP Family Medicine; Referring Provider Anesthesiology Pain Medicine; Visit Provider Anesthesiology Pain Medicine
PROC: 3E0R3BZ Introduction of Anesthetic Agent into Spinal Canal, Percutaneous Approach (ICD-10-PCS; CPT 62281; principal; 2019-05-14 08:35)
DX: M47.814 Spondylosis without myelopathy or radiculopathy, thoracic region (principal); M51.34 Other intervertebral disc degeneration, thoracic region; M47.812 Spondylosis without myelopathy or radiculopathy, cervical region; M50.30 Other cervical disc degeneration, unspecified cervical region; M79.7 Fibromyalgia; I10 Essential (primary) hypertension; E78.5 Hyperlipidemia, unspecified; K21.9 Gastro-esophageal reflux disease without esophagitis; F32.9 Major depressive disorder, single episode, unspecified; F41.9 Anxiety disorder, unspecified; Z79.891 Long term (current) use of opiate analgesic; Z79.899 Other long term (current) drug therapy; Z78.0 Asymptomatic menopausal state; Z87.891 Personal history of nicotine dependence; Z87.19 Personal history of other diseases of the digestive system
CPT/HCPCS: 01992; 64491; 64492; 64490; 72072; J7120

== ENCOUNTER → 2019-09-03 11:07 | Outpatient (CLI) | payer MEDICAID, SELFPAY ==
[2019-09-03 12:47] LABS: Vitamin D,25 Hydroxy 38.3 ng/mL
[2019-09-03 13:02] LABS: Anion Gap 5 (5-15); BUN 10 mg/dL (7-18); BUN/Creat Ratio 13.2 RATIO (10-20); Calcium,Total 9.1 mg/dL (8.5-10.1); Chloride 104 mmol/L (98-107); Cholesterol 190 mg/dL (200); Creatinine, Serum 0.76 mg/dL (0.55-1.02); EST Glomerular Filtration Rate 83 mL/min (>60); Est Glom Filt Rate - Afr Amer 100 mL/min (>60); Glucose 142 mg/dL (74-106); High Density Lipoprotein 56 mg/dL; Sodium Level 140 mmol/L (136-145); Triglycerides 216 mg/dL; Very Low Density Lipoprotein 43 mg/dL (5-40)
== END ==
PROVIDERS: PCP Family Medicine; Visit Provider Family Medicine
DX: I10 Essential (primary) hypertension (principal); E03.9 Hypothyroidism, unspecified; M54.6 Pain in thoracic spine
CPT/HCPCS: 36415; 80048; 80061; 82306; 84443

== ENCOUNTER → 2019-10-18 13:12 | Outpatient (CLI) | payer MEDICAID, SELFPAY ==
--- NOTE | 2019-10-18 13:15 | BD_ITS ---
STUDY: DUAL ENERGY X-RAY ABSORPTIOMETRY / DXA REASON FOR EXAM: Female, 59 years old. 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 COMPARISON: None. FINDINGS: Lumbar Spine (L1-L4): g/cm2 (0.953) / T-score (-1.9) / Z-score (-0.6) Findings are suggestive of osteopenia with a moderate fracture risk. Left Femur Total: g/cm2 (0.737) / T-score (-2.1) / Z-score (-1.2) Left Femoral Neck: g/cm2 (0.719) / T-score (-2.3) / Z-score (-1.0) Right Femur Total: g/cm2 (0.744) / T-score (-2.1) / Z-score (-1.1) Right Femoral Neck: g/cm2 (0.681) / T-score (-2.6) / Z-score (-1.3) BD/Dexa Bone Density Study IMPRESSION: The patient is considered osteoporotic as outlined below according to World [place] Organization (WHO) criteria with a high fracture risk. Reference Information: The T-score is the number of standard deviations above or below the standard which is normal for young adults at their peak bone mineral density. The World Health Organization (WHO) interprets the T-scores as follows: Above -1 Normal bone density Between -1 and -2.5 Osteopenia Equal to / or below -2.5 Osteoporosis As a practical clinical guideline, osteopenia may be graded as follows: Mild -1 through -1.5 Moderate -1.6 through -2.0 Severe -2.1 through -2.4 The Z-score is the number of standard deviations above or below age-matched controls. A Z-score of less than -1.5 would be considered abnormal. References: 1. NIH Osteoporosis and Related Bone Diseases http://www.osteo.org 2. International Society for Clinical Densitometry http://www.iscd.org 3. National Osteoporosis Foundation http://www.nof.org Electronically Signed: Anil Higuera, at 11:42 EDT , Service support ,
--- NOTE | 2019-10-18 13:50 | BI_ITS ---
MAMMOGRAPHY - BILATERAL SCREENING 3-D TOMOSYNTHESIS REASON FOR EXAM: Female, 59 years old. Routine screening PERTINENT HISTORY: FAM HX NIECE AGE 33 -- GAINED 20# -- NO SX -- NO PROBLEMS -- LT SKIN TAG MARKED. TECHNIQUE: 2-D mammograms and 3-D Tomosynthesis of the breast (s) were performed. CAD was performed. COMPARISON: 2019 FINDINGS: The breast composition is composed of scattered fibroglandular density. Scattered benign calcifications are seen. No dense spiculated masses or suspicious microcalcifications are identified. No architectural distortion is identified. There is no skin thickening or retraction. There has been no significant change since the prior study. BI/SCREEN MAMM (CAD) W/MERT BILAT IMPRESSION: No mammographic signs of malignancy. Routine yearly mammograms recommended. ASSESSMENT CATEGORY: BIRADS Category 2: Benign. A letter regarding these results will be sent to the patient by the facility within 30 days. FOLLOW UP RECOMMENDATION: Yearly follow up mammogram recommended. (A) Approximately 10% of breast cancers are not detected by mammography. A normal mammogram should not delay biopsy of a clinically suspicious abnormality. Electronically Signed: Gualberto Nichole MD at 15:12 EDT , Service support ,
== END ==
PROVIDERS: PCP Family Medicine; Referring Provider Family Medicine; Visit Provider Family Medicine
DX: Z12.31 Encounter for screening mammogram for malignant neoplasm of breast (principal); M81.0 Age-related osteoporosis without current pathological fracture
CPT/HCPCS: 77063; 77067; 77080

== ENCOUNTER 2019-11-12 08:17 | Day surgery (SDC) | payer MEDICAID, SELFPAY ==
--- NOTE | 2019-11-12 08:00 | HP_ITS ---
SOPHIE STARKEY (KATHY) Nov 05, 2019 Mon 09:59 AM [facility], [facility] [address], [address] [place], [place] [address] DRAFT OF CURRENT NOTE Chief Complaint: Pain in neck/headaches,mid back History of Present Illness: This is a 58 Y/O Female who was evaluated by our office for a medication refill and possible injection Pain: neck/headaches and mid back/(shoulder blades) and below shoulder blades. Quality: constant but varies in intensity Region: Neck is in center and into both sides.Reports headaches on occasion.Reports pain in her thoracic spine between and below the shoulder blades. Severity: headaches, aching, occasional sharp/stabbing Timing: Since August 2011 Aggravated by: sitting for long periods of time, bending Relieved by: nothing Pain score (out of 10): 8/10 Other info: follow up for pain in neck and down thoracic region and headaches. States pain is constant but varies in intensity and is an aching pain with occasional sharp/stabbing pain. Needs Refills for gabapentin and percocet, denies any medication side effects. States she is about the same and no other associated symptoms. Review of Systems: Notes Headaches. Patient denies any fever, chills, change in weight without trying, vision or hearing problems. No cp, sob, rose, pnd, orthopnea, or peripheral edema.They note no lumps or swollen glands, no new rashes, changing moles, or change in bladder function but reports constipation. Mood has been ok overall. Past Medical History: h/o Hyperlipidemia h/o Hypothyroidism h/o Anxiety h/o Chronic headaches Hx Brain Aneurysm and Craniotomy s/p 4 brain surgeries s/p Tubal ligation s/p Tonsillectomy Family History: Mother: Diabetes, Afib Father: Lung cancer ======== Structured Family History ======== Father: Small cell lung cancer Mother: Atrial fibrillation, Diabetes mellitus Social History: [Tobacco: Former smoker (0 pk yrs / 0 yrs quit) Start Date: 06/20/2014 End Date: 06/08/2017 Pipe Smoker: No Cigar Smoker: No Chewing Tobacco User: No] Living situation: Occupation: unemployed Tobacco: quit 04/06/17 EtOH: denies Rec. drugs: denies Allergies: streptomycin, Compazine, predniSONE SOPHIE (OUSMANE STARKEY Nov 05, 2019 Mon 09:59 AM [facility], [address], [address] [place] [id number] DRAFT OF CURRENT NOTE Medications: 1) Benadryl 25 mg oral capsule, prn 2) citalopram 40 mg oral tablet, One tablet daily 3) cyclobenzaprine 10 mg oral tablet, 1 PO qhs PRN spasms. 4) diphenhydrAMINE 25 mg oral tablet, 1 tab po q6 hrs prn with ondansetron 5) gabapentin 300 mg oral capsule, One tablet BID 6) levothyroxine 75 mcg (0.075 mg) oral tablet, Take 1 tablet by mouth every evening 7) Multiple Vitamins oral capsule, One tablet daily 8) nortriptyline 50 mg oral capsule, Take 1 tablet by mouth once daily 9) oxycodone-acetaminophen 5 mg-325 mg oral tablet, 1 tablet po daily to bid as needed for pain 10) Percocet 5/325 oral tablet, 1 to 2 tablet Daily to BID PRN PAIN 11) propranolol 60 mg oral tablet, One tablet daily 12) Protonix 40 mg oral delayed release tablet, Take 1 tablet by mouth once daily 13) PT to eval and treat, M47.812, M79.1, M48.9 14) sucralfate 1 g oral tablet, Take 1 tablet by mouth 4 Times a Day 15) Vitamin D3 2000 intl units oral capsule, One tablet daily 16) Voltaren 1% topical gel, apply 2 gm to affected area up to 4 times a day 17) xray of cervical spine, 3-7 views Physical Examination: Well nourished and well developed in no acute distress. Alert and oriented to person, place and time. Affect is normal and appropriate. Mucosa pink and moist. Respirations even and unlabored. Neck is supple without significant lymphadenopathy or thyromegaly. Abdomen soft & non-tender. No HSM or masses appreciated. Extremities show no cyanosis, clubbing, or edema. Cervical paraspinal muscle tenderness cervical facet challenge is positive Cervical ROM is limited due to pain Bilateral thoracic facet challenge is positive much improved Thoracic paraspinal muscle tenderness much improved Motor and sensory exam is unchanged. 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 (Transmitted by ADOLFO JORDAN NP) PRESCRIBE: oxycodone-acetaminophen 5 mg-325 mg oral tablet, 1 tablet po daily to bid as needed for pain, # 7, RF: 0. (Transmitted by ADOLFO JORDAN NP) Continue with her current medications pt is using percocet on an as needed basis. UDS was performed today and will be reviewed on the next encounter to monitor pt medications compliance SOAPP score is 6. Life style modifications were also discussed today and the pt appears to understand. SOPHIE STARKEY (KATHY) Nov 05, 2019 Mon 09:59 AM [facility], [address], [address] [place] [id number] DRAFT OF CURRENT NOTE Reviewed with the pt today our opioid agreement and they appear to understand. There are no signs of diversion or addiction with the pt, there is also no signs of abuse or misuse, continues to do well with her medications without any side effects, we will continue monitoring the pt closely. Risks and benefits of the above meds were discussed with the pt and she appears to understand. The common side effects of the medications were discussed and all of her questions and concerns were answered and she appears to understand Pt is to continue with her HEP. Pt has tried multiple modalities, we will schedule the pt for a right cervical radio frequency ablation C4-C7 under fluoroscopy as the pt has had excellent relief from this procedure however, the relief has started to subside We have discussed the risks, benefits as well as alternatives of the procedure and the patient appears to understand and would like to proceed with the above plan. The above plan was discussed today with the pt in details and she appears to understand and agrees to continue with the plan. PROVIDED: Patient Education (09/26/2019) Signed by: ADOLFO JORDAN NP {Reviewed by Niraj Scott MD. Signed on 09/27/19 2:49 PM. } Instructions: Goals: Health Concerns: Amazing Charts Coded: Electronic Signature Not Yet Signed
[2019-11-12] MEDS: MethylPREDNISolone Acetate 80 MG/ML Vial (08:29)
[2019-11-12] MEDS: Bupivacaine 0.25% 30 ML Vial (08:29)
[2019-11-12 08:43] VITALS: BP 94/41; PULSE 94; RESP 16; TEMP 37.5; O2SAT 97; BMI 27.4
[2019-11-12] MEDS: Lactated Ringers 1,000 ML 100 ML IV (08:54)
--- NOTE | 2019-11-12 09:30 | RAD_ITS ---
STUDY: X-RAY - CERVICAL SPINE REASON FOR EXAM: Female, 59 years old. RADIO FREQUENCY ABLATION, C4-C7, RIGHT TECHNIQUE: 8 intraoperative view(s) of the cervical spine were obtained. COMPARISON: None FINDINGS: 8 Limited intraoperative C-arm films were performed as the patient has undergone radiofrequency ablation from C4 to C7 on the right side. RAD/Cerv Spine 2 or 3 Views IMPRESSION: C4-C7 radiofrequency ablation Electronically Signed: Gualberto Nichole MD at 13:25 EDT , Service support ,
[2019-11-12 09:34] VITALS: BP 145/83; BP 94/41; PULSE 94; RESP 16; TEMP 36.2; O2SAT 96
[2019-11-12 09:35] VITALS: BP 127/84; BP 94/41; PULSE 94; RESP 16; O2SAT 94
[2019-11-12 09:40] VITALS: BP 121/76; BP 94/41; PULSE 91; RESP 16; O2SAT 96
[2019-11-12 09:45] VITALS: BP 122/72; BP 94/41; PULSE 89; RESP 16; TEMP 36.1; O2SAT 97
--- NOTE | 2019-11-12 10:02 | OP.PCM_ITS ---
Report of Operation Date of Procedure: 11/12/19 Description of Surgical Findings:: PREOPERATIVE DIAGNOSIS: Cervical spondylosis, cervical degenerative disc disease, cervical facet arthropathy POSTOPERATIVE DIAGNOSIS: Cervical spondylosis, cervical degenerative disc disease, cervical facet arthropathy PROCEDURE PERFORMED: Right-sided cervical radiofrequency ablation of the medial branch at C4, C5, C6, and C7. ANESTHESIA: MAC. BLOOD LOSS: Minimal. COMPLICATIONS: None. DESCRIPTION OF PROCEDURE: History and physical of today was reviewed. Risks and benefits of the procedure were explained. The patient understood and agreed to proceed. Informed consent was obtained. IV inserted per routine protocol. The patient was taken to the operating room and placed in the prone position with a pillow positioned underneath the chest. The neck area was prepped and draped in a sterile fashion using iodine x3. Under fluoroscopy guidance on an AP view, the C4 through C7 vertebral bodies were visualized. The skin and subcu taneous tissue was anesthetized with approximately 10 mL of 1% lidocaine using a 25-gauge regular needle. Under direct visualization on fluoroscopy on a lateral view, using a 21-gauge 10-cm with a 10-mm curved active-tip radiofrequency ablation needle, the needle was passed through the skin. The tip of the needle was maneuvered and directed towards the epiphyseal junction of each corresponding vertebra, starting on the right C4, ending on the right C7, passing through the C5 and C6. Once the tip of the needle was at the vicinity of the medial branch and at the middle of the trapezoid on the lateral view, the stylette of each needle was then removed. After negative aspiration of blood or CSF and confirmation on AP, oblique as well as lateral view, radiofrequency ablation probe was then inserted at each level. Impedance was then recorded at C4 to be 201 ohm, at C5 to be 228 ohm, at C6 to be 213 ohm, and at C7 to be 202 ohm. Motor-evoked potential was then initiated to 1.5 volt without any motor response to each corresponding level or the right arm. The probe was then removed intact and a total of 4 mL of preservative-free 1% lidocaine was injected in divided doses between those four levels after negative aspiration of blood or CSF. After repeated confirmation, the radiofrequency ablation probe was then inserted and after repeated confirmation on AP, oblique as well as lateral view, radiofrequency ablation was then initiated to approximately 80 degree Celsius for 60 second at each level. Once concluded, the probe was then removed intact. A total of 4 mL of preservative-free 0.25% Marcaine with 40 mg of Depo-Medrol was injected in divided doses between those four levels. The needles were then removed intact. The patient experienced no sign or symptoms of intrathecal or intravascular injection. The patient experienced no paresthesia. The procedure was completed without any apparent difficulty or any complications. The patient appeared to tolerate it well. Sensory as well as motor exam was unchanged from prior to the procedure. ASSESSMENT AND PLAN: This is a 59-year-old female with cervical spondylosis, cervical degenerative disc disease, cervical facet arthropathy status post right-sided cervical radiofrequency ablation of the medial branch C4-C7, patient will continue her current medications, patient will follow approximately 2 weeks for reevaluation.
[2019-11-12 10:13] VITALS: BP 94/41
== END 2019-11-12 10:14 | disposition home or self-care (01) ==
LOC: SDC 08:18 → AC 08:19
PROVIDERS: PCP Family Medicine; Referring Provider Anesthesiology Pain Medicine; Visit Provider Anesthesiology Pain Medicine
PROC: (CPT 64633; principal; 2019-11-12 09:25)
DX: M47.812 Spondylosis without myelopathy or radiculopathy, cervical region (principal); M50.30 Other cervical disc degeneration, unspecified cervical region; M47.814 Spondylosis without myelopathy or radiculopathy, thoracic region; M79.7 Fibromyalgia; I10 Essential (primary) hypertension; E78.5 Hyperlipidemia, unspecified; E03.9 Hypothyroidism, unspecified; K21.9 Gastro-esophageal reflux disease without esophagitis; F32.9 Major depressive disorder, single episode, unspecified; F41.9 Anxiety disorder, unspecified; F17.200 Nicotine dependence, unspecified, uncomplicated; Z79.891 Long term (current) use of opiate analgesic; Z79.899 Other long term (current) drug therapy; Z78.0 Asymptomatic menopausal state; Z87.891 Personal history of nicotine dependence
CPT/HCPCS: 64633; 64634 ×2; 72040; 76000; J7120

== ENCOUNTER 2020-01-14 06:45 | Day surgery (SDC) | payer MEDICAID, SELFPAY ==
[2020-01-14] VITALS (7 sets, daily range): BP systolic 113–130; BP diastolic 66–88; PULSE 90–98; RESP 16–18; TEMP 36.4–36.9; O2SAT 97–100; BMI 26.9
--- NOTE | 2020-01-14 07:07 | RAD_ITS ---
PROCEDURE: Right radiofrequency ablation. DATE OF EXAMINATION: 01/14/2020. INDICATION: Female, 59 years old. Chronic neck pain. FLUOROSCOPY TIME (if supplied): (19 seconds) minutes/seconds Intraoperative imaging provided for right C4-C7 radiofrequency ablation. RAD/Cerv Spine 4 or 5 Views IMPRESSION: Intraoperative imaging provided for right C4-C7 radiofrequency ablation. Electronically Signed: Anil Higuera, at 10:31 EDT , Service support ,
[2020-01-14] MEDS: Lactated Ringers 1,000 ML 100 ML IV (07:37)
[2020-01-14 07:46] LABS: Bedside Glucose 149 mg/dL (70-110)
[2020-01-14] MEDS: MethylPREDNISolone Acetate 80 MG/ML Vial ×2 (08:15)
[2020-01-14] MEDS: Bupivacaine 0.25% 30 ML Vial (08:15)
--- NOTE | 2020-01-14 16:23 | PCM.OPRPT ---
Report of Operation Date of Procedure: 01/14/20 Description of Surgical Findings:: PREOPERATIVE DIAGNOSIS: Cervical spondylosis, cervical degenerative disc disease, cervical facet arthropathy POSTOPERATIVE DIAGNOSIS: Cervical spondylosis, cervical degenerative disc disease, cervical facet arthropathy PROCEDURE PERFORMED: Left-sided radiofrequency ablation of the medial branch at C4, C5, C6, and C7. ANESTHESIA: MAC. BLOOD LOSS: Minimal. COMPLICATIONS: None. DESCRIPTION OF PROCEDURE: History and physical of today was reviewed. Risks and benefits of the procedure were explained. The patient understood and agreed to proceed. Informed consent was obtained. IV inserted per routine protocol. The patient was taken to the operating room and placed in the prone position with a pillow positioned underneath the chest. The neck area was prepped and draped in a sterile fashion using iodine x3. Under fluoroscopy guidance on an AP view, the C4 through C7 vertebral bodies were visualized. The skin and subcutaneous tissue was anesthetized with approximately 10 mL of 1% lidocaine using a 25-gauge regular needle. Under direct visualization on fluoroscopy on a lateral view, using a 21-gauge 10-cm with a 10-mm curved active-tip radiofrequency ablation needle, the needle was passed through the skin. The tip of the needle was maneuvered and directed towards the epiphyseal junction of each corresponding vertebra, starting on the left C4, ending on the left C7, passing through the C5 and C6. Once the tip of the needle was at the vicinity of the medial branch and at the middle of the trapezoid on the lateral view, the stylette of each needle was then removed. After negative aspiration of blood or CSF and confirmation on AP, oblique as well as lateral view, radiofrequency ablation probe was then inserted at each level. Impedance was then recorded at C4 to be 325 ohm, at C5 to be 289 ohm, at C6 to be 270 ohm, and at C7 to be 307 ohm. Motor-evoked potential was then initiated to 1.5 volt without any motor response to each corresponding level or the left arm. The probe was then removed intact and a total of 4 mL of preservative-free 1% lidocaine was injected in divided doses between those four levels after negative aspiration of blood or CSF. After repeated confirmation, the radiofrequency ablation probe was then inserted and after repeated confirmation on AP, oblique as well as lateral view, radiofrequency ablation was then initiated to approximately 80 degree Celsius for 60 second at each level. Once concluded, the probe was then removed intact. A total of 4 mL of preservative-free 0.25% Marcaine with 40 mg of Depo-Medrol was injected in divided doses between those four levels. The needles were then removed intact. The patient experienced no sign or symptoms of intrathecal or intravascular injection. The patient experienced no paresthesia. The procedure was completed without any apparent difficulty or any complications. The patient appeared to tolerate it well. Sensory as well as motor exam was unchanged from prior to the procedure. ASSESSMENT AND PLAN: This is a 59-year-old female with cervical spondylosis, cervical degenerative disc disease, cervical facet arthropathy status post left-sided cervical radiofrequency ablation of the medial branch C4-C7, patient will continue her current medications, patient will follow up in approximately 2 weeks for reevaluation.
== END 2020-01-14 09:14 | disposition home or self-care (01) ==
LOC: SDC 06:45 → AC 06:46
PROVIDERS: PCP Family Medicine; Referring Provider Anesthesiology Pain Medicine; Visit Provider Anesthesiology Pain Medicine
PROC: (CPT 64633; principal; 2020-01-14 08:05)
DX: M47.812 Spondylosis without myelopathy or radiculopathy, cervical region (principal); G89.29 Other chronic pain; M50.30 Other cervical disc degeneration, unspecified cervical region; M47.814 Spondylosis without myelopathy or radiculopathy, thoracic region; M79.7 Fibromyalgia; E03.9 Hypothyroidism, unspecified; E78.5 Hyperlipidemia, unspecified; F32.9 Major depressive disorder, single episode, unspecified; F41.9 Anxiety disorder, unspecified; Z78.0 Asymptomatic menopausal state; Z79.899 Other long term (current) drug therapy; Z79.891 Long term (current) use of opiate analgesic; Z87.891 Personal history of nicotine dependence
CPT/HCPCS: 01936; 64633; 64634 ×3; 72050; 76000; 82962; J7120

== ENCOUNTER 2020-03-31 07:17 | Day surgery (SDC) | payer MEDICAID, SELFPAY ==
[2020-01-14 07:17] VITALS: BMI 26.9
[2020-03-31 07:43] VITALS: BP 117/67; PULSE 93; RESP 16; TEMP 36.8; O2SAT 99; BMI 26.2
[2020-03-31] MEDS: Lactated Ringers 1,000 ML 100 ML IV (08:04)
--- NOTE | 2020-03-31 08:35 | RAD_ITS ---
STUDY: X-RAY - THORACIC SPINE REASON FOR EXAM: Female, 59 years old. T5-T8 THORACIC FACET INJECTIONS LEFT TECHNIQUE: 4 view(s) of the thoracic spine were obtained. COMPARISON: None. FINDINGS: Intraoperative imaging provided for left T5-T8 thoracic facet injections. RAD/Thoracic Spine Min 4 Views IMPRESSION: Intraoperative imaging provided for left T5-T8 thoracic facet joint injections. Electronically Signed: Anil Higuera, at 9:20 EST , Service support ,
[2020-03-31] MEDS: Lidocaine 1% (30 ml sdv) 30 ML Vial (08:36)
[2020-03-31] MEDS: Bupivacaine 0.25% 30 ML Vial (08:36)
[2020-03-31] MEDS: MethylPREDNISolone Acetate 40 MG/ML Vial IM (08:37)
[2020-03-31 08:45] VITALS: BP 111/66; BP 117/67; PULSE 82; RESP 16; TEMP 36.1; O2SAT 98
[2020-03-31 08:50] VITALS: BP 116/73; BP 117/67; PULSE 81; RESP 16; O2SAT 98
[2020-03-31 08:51] LABS: Bedside Glucose 160 mg/dL (70-110)
[2020-03-31 08:55] VITALS: BP 117/67; BP 122/68; PULSE 80; RESP 16; O2SAT 99
[2020-03-31 09:00] VITALS: BP 109/72; BP 117/67; PULSE 83; RESP 16; TEMP 36.1; O2SAT 16
[2020-03-31 09:10] VITALS: BP 117/67
--- NOTE | 2020-03-31 09:36 | OP.PCM_ITS ---
Report of Operation Date of Procedure: 03/31/20 Description of Surgical Findings:: PREOPERATIVE DIAGNOSIS: Thoracic spondylosis, thoracic degenerative disc disease, thoracic facet arthropathy POSTOPERATIVE DIAGNOSIS: Thoracic spondylosis, thoracic degenerative disc disease, thoracic facet arthropathy PROCEDURE PERFORMED: Left-sided thoracic facet steroid injection, T5, T6, T7, and T8. ANESTHESIA: MAC. BLOOD LOSS: Minimal. COMPLICATIONS: None. DESCRIPTION OF PROCEDURE: History and physical of today was reviewed. Risks and benefits of the procedure were explained. The patient understood and agreed to proceed. Informed consent was obtained. IV inserted per routine protocol. The patient was taken to the operating room and placed in the prone position with a pillow positioned underneath the chest. The mid back area was prepped and draped in a sterile fashion using iodine x3. Under fluoroscopy guidance on AP view, the T5 through T8 vertebral bodies were visualized. The skin and subcutaneous tissue was anesthetized with approximately 5 mL of 1% lidocaine using a 25-gauge regular needle. Under direct visualization on fluoroscopy, at approximately 15-degree angle, starting on the left T5, ending on the left T8, passing through the T6 and T7, using a 22-gauge 3-1/2-inch spinal needle, the needle was passed through the skin. The tip of the needle was maneuvered and directed towards the epiphyseal junction of each corresponding vertebra. Once the tip of the needle was at the vicinity of the medial branch and in contact with the bone, the needle was pulled approximately 2 mm off the bone. After ne gative aspiration for blood or CSF and confirmation on AP as well as oblique view and lateral view, a total of 6 mL of preservative-free 0.25% Marcaine with 80 mg of Depo-Medrol was injected in divided doses between those four levels. The needles were then removed intact. The patient experienced no sign or symptoms of intrathecal or intravascular injection. The patient experienced no paresthesia. The procedure was completed without any apparent difficulty or any complications. The patient appeared to tolerate it well. ASSESSMENT AND PLAN: This is a 59-year-old female with thoracic spondylosis, thoracic degenerative disc disease, thoracic facet arthropathy status post left-sided thoracic facet steroid injection T5-T8, patient will continue her current medications, patient will follow approximately 2 weeks for reevaluation.
== END 2020-03-31 09:26 | disposition home or self-care (01) ==
LOC: SDC 07:19 → AC 07:20
PROVIDERS: PCP Family Medicine; Referring Provider Anesthesiology Pain Medicine; Visit Provider Anesthesiology Pain Medicine
PROC: 3E0R3BZ Introduction of Anesthetic Agent into Spinal Canal, Percutaneous Approach (ICD-10-PCS; CPT 62281; principal; 2020-03-31 08:30)
DX: M47.814 Spondylosis without myelopathy or radiculopathy, thoracic region (principal); M51.34 Other intervertebral disc degeneration, thoracic region; M47.812 Spondylosis without myelopathy or radiculopathy, cervical region; M50.30 Other cervical disc degeneration, unspecified cervical region; M79.7 Fibromyalgia; I10 Essential (primary) hypertension; E78.00 Pure hypercholesterolemia, unspecified; E03.9 Hypothyroidism, unspecified; F32.9 Major depressive disorder, single episode, unspecified; F41.9 Anxiety disorder, unspecified; F17.200 Nicotine dependence, unspecified, uncomplicated; Z78.0 Asymptomatic menopausal state; Z79.84 Long term (current) use of oral hypoglycemic drugs; Z79.891 Long term (current) use of opiate analgesic; Z79.899 Other long term (current) drug therapy
CPT/HCPCS: 64491; 64492; 64490; 72074; 82962; J7120

== ENCOUNTER → 2020-04-10 08:46 | Outpatient (CLI) | payer MEDICAID, SELFPAY ==
[2020-01-14 07:17] VITALS: BMI 26.9
[2020-03-31 07:43] VITALS: BMI 26.2
--- NOTE | 2020-04-10 08:47 | RAD_ITS ---
STUDY: X-RAY - ESOPHAGUS (BARIUM SWALLOW) WITH FLUOROSCOPY REASON FOR EXAM: Female, 59 years old. Food getting stuck upper TECHNIQUE: 20 view(s) of the esophagus were obtained following swallowing of barium. FLUOROSCOPY TIME (if supplied): (0:35) minutes/seconds COMPARISON: None. FINDINGS: There is no demonstrated esophageal foreign body. There is no demonstrated stricture or mucosal abnormality. Normal gastroesophageal junction, without a demonstrated hiatal hernia. The patient ingest a 12 mm tablet of barium without any difficulty. There is atherosclerotic tortuosity of the aortic arch and descending thoracic aorta. Normal visualized pulmonary parenchyma. There are diffuse degenerative changes of the visualized thoracic spine. RAD/Esophagus Single Contrast IMPRESSION: Normal plain film x-ray examination (barium swallow) of the esophagus. Electronically Signed: Anil Higuera, at 10:12 EST , Service support ,
== END ==
PROVIDERS: PCP Family Medicine; Referring Provider Family Medicine; Visit Provider Family Medicine
DX: R10.13 Epigastric pain (principal)
CPT/HCPCS: 74220

== ENCOUNTER → 2020-06-18 14:47 | Outpatient (CLI) | payer MEDICAID, SELFPAY ==
[2020-06-18 18:52] LABS: AST(SGOT) 22 U/L (15-37); Alanine Aminotransfer ALT/SGPT 34 U/L (13-56); Albumin, Serum 3.7 g/dL (3.2-5.0); Alkaline Phosphatase 90 U/L (45-117); Anion Gap 8 (5-15); BUN 7 mg/dL (7-18); BUN/Creat Ratio 9.5 RATIO (10-20); Chloride 104 mmol/L (98-107); Creatinine, Serum 0.74 mg/dL (0.55-1.02); EST Glomerular Filtration Rate 85 mL/min (>60); Est Glom Filt Rate - Afr Amer 103 mL/min (>60); Globulin 3.8 g/dL (2.2-4.2); Glucose 96 mg/dL (74-106); Potassium 4.1 mmol/L (3.5-5.1); Protein, Total 7.5 g/dL (6.4-8.2); Sodium Level 138 mmol/L (136-145)
== END ==
PROVIDERS: PCP Family Medicine; Referring Provider Family Medicine; Visit Provider Family Medicine
DX: E03.9 Hypothyroidism, unspecified (principal); R10.13 Epigastric pain
CPT/HCPCS: 36415; 80053; 84443

== ENCOUNTER 2020-08-11 06:27 | Day surgery (SDC) | payer MEDICAID, SELFPAY ==
[2020-08-11] VITALS (7 sets, daily range): BP systolic 111–130; BP diastolic 60–75; PULSE 88–97; RESP 16–18; TEMP 36.6–36.8; O2SAT 94–98; BMI 27.2
[2020-08-11] MEDS: Lactated Ringers 1,000 ML 100 ML IV (07:03)
[2020-08-11 07:10] LABS: Bedside Glucose 142 mg/dL (70-110)
--- NOTE | 2020-08-11 08:00 | RAD_ITS ---
PROCEDURE: Right C4-C7 radiofrequency ablation. DATE OF EXAMINATION: 08/11/2020. INDICATION: Female, 59 years old. Chronic neck pain. FLUOROSCOPY TIME (if supplied): (19 seconds) minutes/seconds. 6 images were obtained. Intraoperative imaging provided for right C4-C7 radiofrequency ablation. RAD/Cerv Spine 4 or 5 Views IMPRESSION: Intraoperative imaging provided for right C4-C7 radiofrequency ablation. Electronically Signed: Anil Higuera MD at 8:43 EDT , Service support ,
--- NOTE | 2020-08-11 08:04 | PCM.OPRPT ---
Report of Operation Date of Procedure: 08/11/20 Description of Surgical Findings:: PREOPERATIVE DIAGNOSIS: Cervical spondylosis, cervical degenerative disc disease, cervical facet arthropathy POSTOPERATIVE DIAGNOSIS: Cervical spondylosis, cervical degenerative disc disease, cervical facet arthropathy PROCEDURE PERFORMED: Left-sided cervical radiofrequency ablation of the medial branch at C4, C5, C6, and C7. ANESTHESIA: MAC. BLOOD LOSS: Minimal. COMPLICATIONS: None. DESCRIPTION OF PROCEDURE: History and physical of today was reviewed. Risks and benefits of the procedure were explained. The patient understood and agreed to proceed. Informed consent was obtained. IV inserted per routine protocol. The patient was taken to the operating room and placed in the prone position with a pillow positioned underneath the chest. The neck area was prepped and draped in a sterile fashion using iodine x3. Under fluoroscopy guidance on an AP view, the C4 through C7 vertebral bodies were visualized. The skin and subcutaneous tissue was anesthetized with approximately 10 mL of 1% lidocaine using a 25-gauge regular needle. Under direct visualization on fluoroscopy on a lateral view, using a 21-gauge 10-cm with a 10-mm curved active-tip radiofrequency ablation needle, the needle was passed through the skin. The tip of the needle was maneuvered and directed towards the epiphyseal junction of each corresponding vertebra, starting on the left C4, ending on the left C7, passing through the C5 and C6. Once the tip of the needle was at the vicinity of the medial branch and at the middle of the trapezoid on the lateral view, the stylette of each needle was then removed. After negative aspiration of blood or CSF and confirmation on AP, oblique as well as lateral view, radiofrequency ablation probe was then inserted at each level. Impedance was then recorded at C4 to be 275 ohm, at C5 to be 247 ohm, at C6 to be 246 ohm, and at C7 to be 255 ohm. Motor-evoked potential was then initiated to 1.5 volt without any motor response to each corresponding level or the left arm. The probe was then removed intact and a total of 4 mL of preservative-free 1% lidocaine was injected in divided doses between those four levels after negative aspiration of blood or CSF. After repeated confirmation, the radiofrequency ablation probe was then inserted and after repeated confirmation on AP, oblique as well as lateral view, radiofrequency ablation was then initiated to approximately 80 degree Celsius for 60 second at each level. Once concluded, the probe was then removed intact. A total of 4 mL of preservative-free 0.25% Marcaine with 40 mg of Depo-Medrol was injected in divided doses between those four levels. The needles were then removed intact. The patient experienced no sign or symptoms of intrathecal or intravascular injection. The patient experienced no paresthesia. The procedure was completed without any apparent difficulty or any complications. The patient appeared to tolerate it well. Sensory as well as motor exam was unchanged from prior to the procedure. ASSESSMENT AND PLAN: This is a 59-year-old female with cervical spondylosis, cervical degenerative disc disease, cervical facet arthropathy, status post left-sided cervical radiofrequency ablation of the medial branch C4-C7, patient will continue her current medications, patient will follow in approximately 2 weeks for reevaluation. Type of Anesthesia: MAC Complications None
[2020-08-11] MEDS: Lidocaine 1% (30 ml sdv) 30 ML Vial (08:14)
[2020-08-11] MEDS: MethylPREDNISolone Acetate 40 MG/ML Vial IM (08:14)
[2020-08-11] MEDS: Bupivacaine 0.25% 30 ML Vial (08:15)
== END 2020-08-11 09:17 | disposition home or self-care (01) ==
LOC: SDC 06:27 → AC 06:28
PROVIDERS: PCP Family Medicine; Referring Provider Anesthesiology Pain Medicine; Visit Provider Anesthesiology Pain Medicine
DX: M47.812 Spondylosis without myelopathy or radiculopathy, cervical region (principal); M50.30 Other cervical disc degeneration, unspecified cervical region; M47.814 Spondylosis without myelopathy or radiculopathy, thoracic region; M79.7 Fibromyalgia; E78.5 Hyperlipidemia, unspecified; F41.9 Anxiety disorder, unspecified; M81.0 Age-related osteoporosis without current pathological fracture; F17.200 Nicotine dependence, unspecified, uncomplicated; Z79.891 Long term (current) use of opiate analgesic; Z79.899 Other long term (current) drug therapy
CPT/HCPCS: 01936; 64633; 64634 ×2; 72050; 76000; 82962; J7120

== ENCOUNTER → 2020-10-20 14:57 | Outpatient (CLI) | payer MEDICAID, SELFPAY ==
[2020-08-11 06:49] VITALS: BMI 27.2
--- NOTE | 2020-10-20 14:59 | BI_ITS ---
MAMMOGRAPHY - BILATERAL SCREENING REASON FOR EXAM: Female, 60 years old. Routine annual screening examination. PERTINENT HISTORY: Non-contributory. TECHNIQUE: Digital bilateral breast alexx (3D mammographic acquisition) in the CC and MLO projections. 2-D mediolateral oblique (MLO) and craniocaudad (CC) views of both breasts were obtained. CAD: Full Field Digital Mammography with Computer Added Detection was performed. COMPARISON: Comparison is made with prior study dated 10/18/2019. FINDINGS: Breast Composition: The breasts are heterogeneously dense, which may obscure small masses. There are no dominant masses or suspicious calcifications. No other significant abnormalities are identified. There has been no significant change since the prior study. BI/SCREENING MAMM (CAD), BILAT IMPRESSION: Stable bilateral screening mammogram. Yearly follow-up mammogram recommended. (A) ASSESSMENT CATEGORY: BIRADS Category 1: Negative. A letter regarding these results will be sent to the patient by the facility within 30 days. Approximately 10% of breast cancers are not detected by mammography. A normal mammogram should not delay biopsy of a clinically suspicious abnormality. [id number] Electronically Signed: Anil Higuera MD at 8:35 EDT , Service support ,
== END ==
PROVIDERS: PCP Family Medicine; Referring Provider Family Medicine; Visit Provider Family Medicine
DX: Z12.31 Encounter for screening mammogram for malignant neoplasm of breast (principal)
CPT/HCPCS: 77067

== ENCOUNTER → 2020-10-21 12:41 | Outpatient (CLI) | payer MEDICAID, SELFPAY ==
[2020-08-11 06:49] VITALS: BMI 27.2
--- NOTE | 2020-10-21 12:42 | CT_ITS ---
STUDY: LOW DOSE CT LUNG CANCER SCREENING REASON FOR EXAM: Female, 60 years old. TOBACCO USE. The patient smoked 1 pack per day for 40 years. RADIATION DOSAGE (If Supplied By Facility): CTDIvol = ( 1.59 ) mGy, DLP = ( 48.04 ) mGycm TECHNIQUE: No contrast was administered. Low dose technique was utilized (average mAS-38 and kVp 120). 1.25 mm axial source images with a slice interval of 1.25-mm were reconstructed in lung windows. 2.5 mm axial source images with a slice interval of 2.5-mm were reconstructed in lung windows. 5.0 mm axial source images with a slice interval of 5.0-mm were reconstructed in soft tissue windows. Nodule measured using lung windows on PACS and/or independent workstation with automated measurement of minimum and maximum diameter. Nodule measurement reported as average diameter rounded to the nearest whole number. Growth is defined as an increase ins size of greater than 1.5 mm. COMPARISON: None. NODULES: No suspicious nodules are seen. Emphysema: Mild degree of emphysematous changes. Focal scarring along the anterior medial aspect of the right middle lobe. Mild increased markings at the lung bases. Endobronchial lesion: None Aorta: Mild atherosclerotic plaques at the level of the aortic arch. Coronary arteries: Coronary artery calcification. Mediastinal nodes: Small benign appearing mediastinal lymph nodes. Other chest and abdominal findings: CT/Low Dose CT Lung Screening IMPRESSION: Lung-RADS category 2 - Continue annual screening with LDCT in 12 months. IMPORTANT NOTES FOR USE: ACR Lung-RADS Version 1.1 Assessment Categories Release Date: 2018 Category: Coded 0-4 bases on nodule(s) with highest degree of suspicion. Negative screen is defined as categories 1 and 2; a positive screen is defined as categories 3 and 4. Category 3 and 4A nodules that are unchanged on interval CT should be coded as category 2, and individuals returned to screening in 12 months. Category 4X: Category 3 or 4 nodules with additional imaging findings that increase the suspicion of lung cancer, such as spiculation, GGN that doubles in size in 1 year, enlarged lymph notes, etc. Category Modifiers: S (significant finding unrelated to lung cancer) Electronically Signed: Anil Higuera MD at 13:42 EDT , Service support ,
== END ==
PROVIDERS: PCP Family Medicine; Referring Provider Family Medicine; Visit Provider Family Medicine
DX: Z12.2 Encounter for screening for malignant neoplasm of respiratory organs (principal); Z87.891 Personal history of nicotine dependence
CPT/HCPCS: 71271

== ENCOUNTER 2020-11-10 06:42 | Day surgery (SDC) | payer MEDICAID, SELFPAY ==
[2020-08-11 06:49] VITALS: BMI 27.2
[2020-11-10] VITALS (7 sets, daily range): BP systolic 111–124; BP diastolic 65–75; PULSE 80–87; RESP 16; TEMP 36.1–36.4; O2SAT 96–99; BMI 27.1
[2020-11-10] MEDS: Lactated Ringers 1,000 ML 100 ML IV (07:18)
--- NOTE | 2020-11-10 08:10 | RAD_ITS ---
STUDY: X-RAY - CERVICAL SPINE REASON FOR EXAM: Female, 60 years old. RADIO FREQ ABLATION C4-C7,RIGHT TECHNIQUE: 7 intraoperative view(s) of the cervical spine were obtained. COMPARISON: None FINDINGS: Intraoperative imaging provided for right C4-C7 radiofrequency ablation. RAD/Cerv Spine 2 or 3 Views IMPRESSION: Intraoperative imaging provided for right C4-C7 radiofrequency ablation. Electronically Signed: Anil Higuera MD at 15:46 EDT , Service support ,
[2020-11-10 08:35] LABS: Bedside Glucose 106 mg/dL (70-110)
[2020-11-10] MEDS: Bupivacaine Mpf 0.5% 30 ML VIAL (08:50)
[2020-11-10] MEDS: 0.9% Normal Saline (Pres. free 10 ML Vial (08:50)
[2020-11-10] MEDS: Lidocaine 1% (30 ml sdv) 30 ML Vial (08:50)
[2020-11-10] MEDS: MethylPREDNISolone Acetate 40 MG/ML Vial IM (08:51)
--- NOTE | 2020-11-10 10:54 | OP.PCM_ITS ---
Report of Operation Date of Procedure: 11/10/20 Description of Surgical Findings:: PREOPERATIVE DIAGNOSIS: Cervical spondylosis, cervical degenerative disc disease, cervical facet arthropathy POSTOPERATIVE DIAGNOSIS: Cervical spondylosis, cervical degenerative disc disease, cervical facet arthropathy PROCEDURE PERFORMED: Right-sided radiofrequency ablation of the medial branch at C4, C5, C6, and C7. ANESTHESIA: MAC. BLOOD LOSS: Minimal. COMPLICATIONS: None. DESCRIPTION OF PROCEDURE: History and physical of today was reviewed. Risks and benefits of the procedure were explained. The patient understood and agreed to proceed. Informed consent was obtained. IV inserted per routine protocol. The patient was taken to the operating room and placed in the prone position with a pillow positioned underneath the chest. The neck area was prepped and draped in a sterile fashion using iodine x3. Under fluoroscopy guidance on an AP view, the C4 through C7 vertebral bodies were visualized. The skin and subcutaneous tissue was anesthetized with approximately 10 mL of 1% lidocaine using a 25-gauge regular needle. Under direct visualization on fluoroscopy on a lateral view, using a 21-gauge 10-cm with a 10-mm curved active-tip radiofrequency ablation needle, the needle was passed through the skin. The tip of the needle was maneuvered and directed towards the epiphyseal junction of each corresponding vertebra, starting on the right C4, ending on the right C7, passing through the C5 and C6. Once the tip of the needle was at the vicinity of the medial branch and at the middle of the trapezoid on the lateral view, the stylette of each needle was then removed. After negative aspiration of blood or CSF and confirmation on AP, oblique as well as lateral view, radiofrequency ablation probe was then inserted at each level. Impedance was then recorded at C4 to be 266 ohm, at C5 to be 274 ohm, at C6 to be 292 ohm, and at C7 to be 241 ohm. Motor-evoked potential was then initiated to 1.5 volt without any motor r esponse to each corresponding level or the right arm. The probe was then removed intact and a total of 4 mL of preservative-free 1% lidocaine was injected in divided doses between those four levels after negative aspiration of blood or CSF. After repeated confirmation, the radiofrequency ablation probe was then inserted and after repeated confirmation on AP, oblique as well as lateral view, radiofrequency ablation was then initiated to approximately 80 degree Celsius for 60 second at each level. Once concluded, the probe was then removed intact. A total of 4 mL of preservative-free 0.25% M arcaine with 40 mg of Depo-Medrol was injected in divided doses between those four levels. The needles were then removed intact. The patient experienced no sign or symptoms of intrathecal or intravascular injection. The patient experienced no paresthesia. The procedure was completed without any apparent difficulty or any complications. The patient appeared to tolerate it well. Sensory as well as motor exam was unchanged from prior to the procedure. ASSESSMENT AND PLAN: This is a 61-year-old female with cervical spondylosis, cervical degenerative disc disease, cervical facet arthropathy status post right-sided cervical radiofrequency ablation of the medial branch C4-C7, patient will continue current medications, patient will follow in approximately 2 weeks for reevaluation.
== END 2020-11-10 10:13 | disposition home or self-care (01) ==
LOC: SDC 06:45 → AC 06:50
PROVIDERS: PCP Family Medicine; Visit Provider Anesthesiology Pain Medicine
PROC: (CPT 64633; principal; 2020-11-10 08:00)
DX: M47.812 Spondylosis without myelopathy or radiculopathy, cervical region (principal); M50.321 Other cervical disc degeneration at C4-C5 level; M46.92 Unspecified inflammatory spondylopathy, cervical region; M19.90 Unspecified osteoarthritis, unspecified site; I10 Essential (primary) hypertension; E11.9 Type 2 diabetes mellitus without complications; E78.00 Pure hypercholesterolemia, unspecified; E07.9 Disorder of thyroid, unspecified; K21.9 Gastro-esophageal reflux disease without esophagitis; F17.200 Nicotine dependence, unspecified, uncomplicated; Z79.84 Long term (current) use of oral hypoglycemic drugs; Z79.899 Other long term (current) drug therapy; Z86.73 Personal history of transient ischemic attack (TIA), and cerebral infarction without residual deficits
CPT/HCPCS: 64633; 64634 ×2; 72040; 76000; 82962; J7120; J3490

== ENCOUNTER 2020-12-29 07:34 | Day surgery (SDC) | payer MEDICAID, SELFPAY ==
--- NOTE | 2020-12-25 13:56 | PCM.HP.BLA ---
History and Physical Date of Admission: 12/29/20 Chief Complaint: 50% improvement in the right cervical History of Present Illness: This is a 60 Y/O Female who was evaluated by our office today as a follow up. Pain: neck/headaches and mid back Quality: constant but varies in intensity Region: Neck is in center and into both sides but right has decreased with ablation.Reports headaches on occasion.Reports pain in her thoracic spine but the right shoulder blade has decreased. Severity: headaches, aching, occasional sharp/stabbing Timing: Since August 2011 Aggravated by: sitting for long periods of time, bending Relieved by: nothing Pain score (out of 10): center of neck 8.5/10 Other info: Patient is here for a follow up-post RFA in the right cervical spine decreased her pain by 50%.Reports the pain is more in the center of the spine and reports occasional headaches.Reports pain in the mid-back but the right shoulder blade has decreased since injection.States her insurance might be changing and before any injections she needs to know they are approved.Needs refill on her gabapentin and oxycodone. Review of Systems: Notes Headaches. Patient denies any fever, chills, change in weight without trying, vision or hearing problems. No cp, sob, rose, pnd, orthopnea, or peripheral edema.They note no lumps or swollen glands, no new rashes, changing moles, or change in bladder function but reports constipation. Mood has been good overall. Past Medical History: h/o Hyperlipidemia h/o Hypothyroidism h/o Anxiety h/o Chronic headaches h/o Brain Aneurysm and Craniotomy h/o osteoporosis 12/2019 s/p 4 brain surgeries s/p Tubal ligation s/p Tonsillectomy Family History: Mother: Diabetes, Afib Father: Lung cancer ======== Structured Family History ======== Father: Small cell lung cancer Mother: Atrial fibrillation, Diabetes mellitus Social History: [Tobacco: Current every day smoker (1 ppd x 30 yrs = 30 pk yrs) Start Date: 06/20/2014 Pipe Smoker: No Cigar Smoker: No Chewing Tobacco User: No] Living situation: Occupation: unemployed Tobacco: quit 04/06/17 EtOH: denies Rec. drugs: denies Allergies: streptomycin, Compazine, predniSONE Medications: 1) alendronate 70 mg oral tablet, once per week 2) Benadryl 25 mg oral capsule, prn 3) citalopram 40 mg oral tablet, One tablet daily 4) cyclobenzaprine 10 mg oral tablet, 1 PO qhs PRN spasms. 5) diphenhydrAMINE 25 mg oral tablet, 1 tab po q6 hrs prn with ondansetron 6) gabapentin 300 mg oral capsule, One tablet BID 7) levothyroxine 75 mcg (0.075 mg) oral tablet, Take 1 tablet by mouth every evening 8) metFORMIN 500 mg oral tablet, Take 1 tablet by mouth once daily 9) Multiple Vitamins oral capsule, One tablet daily 10) nortriptyline 50 mg oral capsule, Take 1 tablet by mouth once daily 11) Nurtec ODT 75 mg oral tablet, disintegrating, as directed prn 12) oxycodone-acetaminophen 5 mg-325 mg oral tablet, 1 tablet po daily to bid as needed for pain 13) Pepcid 40 mg oral tablet, Take 1 tablet by mouth once daily 14) Protonix 40 mg oral delayed release tablet, Take 1 tablet by mouth once daily 15) PT to eval and treat, M47.812, M79.1, M48.9 16) sucralfate 1 g oral tablet, Take 1 tablet by mouth 4 Times a Day 17) Tylenol Extra Strength 500 mg oral tablet, 2 pills a day as needed 18) Vitamin D3 2000 intl units oral capsule, One tablet daily 19) Voltaren 1% topical gel, apply 2 gm to affected area up to 4 times a day 20) xray of cervical spine, 3-7 views Physical Examination: Wt: 145.5 lb Ht/Ln: 62 in BMI: 26.6 BP: 126/84 Pulse: 92 RR: 16 Temp: 97.2F Pain: 8 Well nourished and well developed in no acute distress. Alert and oriented to person, place and time. Affect is normal and appropriate. Mucosa pink and moist. Respirations even and unlabored. Neck is supple without significant lymphadenopathy or thyromegaly. Abdomen soft & non-tender. No HSM or masses appreciated. Extremities show no cyanosis, clubbing, or edema. Cervical paraspinal muscle tenderness much improved. cervical facet challenge is positive much improved. Cervical ROM is limited due to pain much improved. Bilateral thoracic facet challenge is positive Thoracic paraspinal muscle tenderness Motor and sensory exam is unchanged. 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 (Transmitted by ADOLFO JORDAN NP) PRESCRIBE: oxycodone-acetaminophen 5 mg-325 mg oral tablet, 1 tablet po daily to bid as needed for pain, # 7, RF: 0. (Transmitted by ADOLFO JORDAN NP) Continue with her current medications pt is using percocet on an as needed basis. UDS was reviewed, pt appears compliant SOAPP score is 6. Life style modifications were also discussed today and the pt appears to understand. Reviewed with the pt today our opioid agreement and they appear to understand. Smoking cessation was discussed today and pt was encouraged. There are no signs of diversion or addiction with the pt, there is also no signs of abuse or misuse, continues to do well with her medications without any side effects, we will continue monitoring the pt closely. Risks and benefits of the above meds were discussed with the pt and she appears to understand. The common side effects of the medications were discussed and all of her questions and concerns were answered and she appears to understand Pt is to continue with her HEP. Pt has tried multiple modalities with no success, we will schedule the pt for a left thoracic facet steroid injection T5-T8 under fluoroscopy We have discussed the risks, benefits as well as alternatives of the procedure and the patient appears to understand and would like to proceed with the above plan. The above plan was discussed today with the pt in details and she appears to understand and agrees to continue with the plan.
[2020-12-29 08:37] VITALS: BP 135/71; PULSE 85; RESP 16; TEMP 36.7; O2SAT 97; BMI 26.9
[2020-12-29] MEDS: Lactated Ringers 1,000 ML 100 ML IV (08:51)
[2020-12-29 09:00] LABS: Bedside Glucose 130 mg/dL (70-110)
--- NOTE | 2020-12-29 09:20 | RAD_ITS ---
INDICATION: FACET INJECTION T5-T8,LEFT EXAMINATION/TECHNIQUE: X-RAY - XR Spine Thoracic 3 Views COMPARISON: 11/10/2020.. TOTAL FLUOROSCOPY TIME: 14.9 seconds. TOTAL FLUOROSCOPY DOSE: 2.72 mGy FINDINGS: 5 spot fluoroscopic images were obtained intraoperatively demonstrating needles superimposed along the location of the left T5-T8 facets, no radiologist was present for the procedure, please refer to operative report for details. RAD/Thoracic Spine 3 Views IMPRESSION: No radiologist was present for the procedure, please refer to operative report for detail. Electronically Signed: Andrei Frias MD at 12:27 EDT Tel , Service support ,
[2020-12-29] MEDS: MethylPREDNISolone Acetate 80 MG/ML Vial (09:32)
[2020-12-29] MEDS: Bupivacaine 0.25% 30 ML Vial (09:32)
[2020-12-29] MEDS: Lidocaine 1% (20 ml mdv) 20 ML Vial (09:32)
[2020-12-29 09:43] VITALS: BP 135/71; BP 149/71; PULSE 82; RESP 18; TEMP 36.6; O2SAT 100
[2020-12-29 09:45] VITALS: BP 135/71; BP 144/78; PULSE 79; RESP 18; O2SAT 98
[2020-12-29 09:50] VITALS: BP 135/71; BP 145/75; PULSE 81; RESP 20; O2SAT 99
[2020-12-29 09:55] VITALS: BP 135/71; BP 142/86; PULSE 86; RESP 18; TEMP 36.2; O2SAT 100
[2020-12-29 10:05] VITALS: BP 135/71
--- NOTE | 2020-12-29 15:42 | OP.PCM_ITS ---
Report of Operation Date of Procedure: 07/28/20 Pre-Operative Diagnosis: Thoracic spondylosis, thoracic degenerative disc disea se, thoracic facet arthropathy Post-Operative Diagnosis: Thoracic spondylosis, thoracic degenerative disc disease, thoracic facet arthropathy Surgery/Procedure Performed:: Left thoracic medial branch injection at T5, T6, T7, T8 Description of Surgical Findings:: DESCRIPTION OF PROCEDURE: History and physical of today was reviewed. Risks and benefits of the procedure were explained. The patient understood and agreed to proceed. Informed consent was obtained. IV inserted per routine protocol. The patient was taken to the operating room and placed in the prone position with a pillow positioned underneath the chest. The mid back area was prepped and draped in a sterile fashion using iodine x3. Under fluoroscopy guidance on AP view, the T5 through T8 vertebral bodies were visualized. The skin and subcutaneous tissue was anesthetized with approximately 5 mL of 1% lidocaine using a 25-gauge regular needle. Under direct visualization on fluoroscopy, at approximately 15-degree angle, starting on the left T5, ending on the left T8, passing through the T6 and T7, using a 22-gauge 3-1/2-inch spinal needle, the needle was passed through the skin. The tip of the needle was maneuvered and directed towards the epiphyseal junction of each corresponding vertebra. Once the tip of the needle was at the vicinity of the medial branch and in contact with the bone, the needle was pulled approximately 2 mm off the bone. After negative aspiration for blood or CSF and confirmation on AP as well as oblique view and lateral view, a total of 6 mL of preservative-free 0.25% Marcaine with 80 mg of Depo- Medrol was injected in divided doses between those four levels. The needles were then removed intact. The patient experienced no sign or symptoms of intrathecal or intravascular injection. The patient experienced no paresthesia. The procedure was completed without any apparent difficulty or any complications. The patient appeared to tolerate it well. ASSESSMENT AND PLAN: This is a 60-year-old female with Thoracic spondylosis, thoracic degenerative disc disease, thoracic facet arthropathy status post left thoracic medial branch block at T5-T8, the patient will continue her current medications, the patient will follow in approximately 2 weeks for reevaluation. Type of Anesthesia: MAC Estimated Blood Loss (mL): Minimal Complications None.
== END 2020-12-29 10:21 | disposition home or self-care (01) ==
LOC: SDC 07:35 → AC 07:36
PROVIDERS: PCP Family Medicine; Referring Provider Anesthesiology Pain Medicine; Visit Provider Anesthesiology Pain Medicine
PROC: 3E0R3BZ Introduction of Anesthetic Agent into Spinal Canal, Percutaneous Approach (ICD-10-PCS; CPT 62281; principal; 2020-12-29 09:15)
DX: M47.814 Spondylosis without myelopathy or radiculopathy, thoracic region (principal); M51.34 Other intervertebral disc degeneration, thoracic region; M50.30 Other cervical disc degeneration, unspecified cervical region; M47.812 Spondylosis without myelopathy or radiculopathy, cervical region; M79.7 Fibromyalgia; E11.9 Type 2 diabetes mellitus without complications; E78.5 Hyperlipidemia, unspecified; E03.9 Hypothyroidism, unspecified; M19.90 Unspecified osteoarthritis, unspecified site; K21.9 Gastro-esophageal reflux disease without esophagitis; Z78.0 Asymptomatic menopausal state; Z79.891 Long term (current) use of opiate analgesic; Z79.84 Long term (current) use of oral hypoglycemic drugs; Z79.890 Hormone replacement therapy; Z79.899 Other long term (current) drug therapy
CPT/HCPCS: 01992; 64490; 64491; 64492; 72072; 82962; J7120

== ENCOUNTER → 2021-01-07 09:27 | Outpatient (CLI) | payer MEDICAID, SELFPAY ==
[2021-01-07 11:08] LABS: PTHIN 59.7 pg/mL (18.4-80.1)
[2021-01-07 11:09] LABS: Phosphorus 3.4 mg/dL (2.5-4.9)
[2021-01-07 11:10] LABS: Vitamin D,25 Hydroxy 43.9 ng/mL
== END ==
PROVIDERS: PCP Family Medicine; Referring Provider Family Medicine; Visit Provider Family Medicine
DX: M81.0 Age-related osteoporosis without current pathological fracture (principal)
CPT/HCPCS: 36415; 82306; 82330; 83735; 83970; 84100

== ENCOUNTER → 2021-01-08 13:59 | Outpatient (CLI) | payer MEDICAID, SELFPAY ==
[2021-01-08 14:15] VITALS: BP 136/76; PULSE 92; RESP 16; TEMP 35.8; O2SAT 96; BMI 26.9
[2021-01-08] MEDS: 0.9% NaCl Peripheral Flush Adult/Peds IV (14:22)
[2021-01-08] MEDS: Zoledronic Acid 5 MG 100 ML 300 MG IV (14:36)
[2021-01-08] MEDS: 0.9% NaCl IVPB Med Flush (250 mL) 15 ML IV (14:36)
[2021-01-08 15:17] VITALS: BP 122/75; PULSE 74
== END ==
PROVIDERS: PCP Family Medicine; Referring Provider Family Medicine; Visit Provider Family Medicine
DX: M81.0 Age-related osteoporosis without current pathological fracture (principal)
CPT/HCPCS: 96365; J7050; A4216; J3489

== ENCOUNTER 2021-02-09 07:19 | Day surgery (SDC) | payer MEDICAID, SELFPAY ==
[2021-02-09 08:21] VITALS: BP 123/75; PULSE 100; RESP 20; TEMP 36.2; O2SAT 98; BMI 26.6
[2021-02-09] MEDS: Lactated Ringers 1,000 ML 15 ML IV (08:38)
[2021-02-09 08:55] LABS: Bedside Glucose 126 mg/dL (70-110)
--- NOTE | 2021-02-09 09:05 | RAD_ITS ---
PROCEDURE: Cervical epidural block. DATE OF EXAMINATION: 02/09/2021. INDICATION: Female, 60 years old. Cervical pain. FLUOROSCOPY TIME (if supplied): (11 seconds) minutes/seconds. One image was obtained. Intraoperative imaging provided for cervical epidural block. RAD/Spine 1 View Any Level IMPRESSION: Intraoperative imaging provided for cervical epidural block. Electronically Signed: Anil Higuera MD at 15:04 EST , Service support ,
[2021-02-09] MEDS: MethylPREDNISolone Acetate 80 MG/ML Vial (09:12)
[2021-02-09 09:41] VITALS: BP 137/76; PULSE 96; RESP 14; TEMP 36.4; O2SAT 97
--- NOTE | 2021-02-09 12:54 | OP.PCM_ITS ---
Report of Operation Description of Surgical Findings:: Date of Procedure: 02/09/21 Pre-Operative Diagnosis: Cervical radiculopathy, cervical degenerative disc disease, cervical spinal stenosis Post-Operative Diagnosis: Cervical radiculopathy, cervical degenerative disc disease, cervical spinal stenosis Description of Surgical Findings:: PROCEDURE PERFORMED: Cervical epidural steroid injection, interlaminar at C7- T1. ANESTHESIA: Local. BLOOD LOSS: Minimal. COMPLICATIONS: None. DESCRIPTION OF PROCEDURE: History and physical of today was reviewed. Risks and benefits of the procedure were explained. The patient understood and agreed to proceed. Informed consent was obtained. IV inserted per routine protocol. The patient was taken to the operating room and placed in the prone position with a pillow positioned underneath the chest. The neck area was prepped and draped in a sterile fashion using iodine x3. Under fluoroscopy guidance on an AP view, the C7-T1 interlaminar space was identified. The skin and subcutaneous tissue was anesthetized with approximately 3 mL of 1% lidocaine using a 25-gauge regular needle. Under direct visualization on fluoroscopy, on AP view, using a 20-gauge 2-1/2-inch Tuohy needle, the needle was advanced via the skin. The tip of the needle was maneuvered and directed towards the interlaminar space at C7- T1. Loss of resistance technique was carried to air. Loss of resistance technique was encountered. Once encountered, after negative aspiration for blood and CSF, a total of 1 mL of contrast was injected to confirm correct placement of the needle as well as cephalocaudal spread of the contrast. Confirmation was obtained on AP as well as lateral view. After repeated n egative aspiration and confirmation, a total of 3 mL of preservative-free normal saline and 80 mg of Depo-Medrol was injected easily. The needle was then removed intact. The patient experienced no sign or symptoms of intrathecal or intravascular injection. The patient experienced no paresthesia. The procedure was completed without any apparent difficulty or any complications. The patient appeared to tolerate it well. ASSESSMENT AND PLAN: This is a 60-year-old female with cervical radiculopathy, cervical degenerative disc disease, cervical spinal stenosis status post cervical epidural steroid injection interlaminar at C7-T1 under fluoroscopic guidance, patient will continue current medications, patient will follow approximately 2 weeks for reevaluation.
== END 2021-02-09 10:38 | disposition home or self-care (01) ==
LOC: SDC 07:19 → AC 07:19
PROVIDERS: PCP Family Medicine; Referring Provider Anesthesiology Pain Medicine; Visit Provider Anesthesiology Pain Medicine
PROC: 3E0S3BZ Introduction of Anesthetic Agent into Epidural Space, Percutaneous Approach (ICD-10-PCS; CPT 62320; principal; 2021-02-09 09:00)
DX: M50.10 Cervical disc disorder with radiculopathy, unspecified cervical region (principal); M47.22 Other spondylosis with radiculopathy, cervical region; M48.02 Spinal stenosis, cervical region; E78.5 Hyperlipidemia, unspecified; M79.7 Fibromyalgia; F41.9 Anxiety disorder, unspecified; M81.0 Age-related osteoporosis without current pathological fracture; F17.200 Nicotine dependence, unspecified, uncomplicated; Z79.52 Long term (current) use of systemic steroids; Z79.891 Long term (current) use of opiate analgesic; Z79.890 Hormone replacement therapy; Z79.899 Other long term (current) drug therapy
CPT/HCPCS: 62321; 64490; 72020; 82962; J7120

== ENCOUNTER 2021-05-04 08:22 | Day surgery (SDC) | payer MEDICAID, SELFPAY ==
--- NOTE | 2021-04-10 15:05 | HP.PCM_ITS ---
History and Physical Date of Admission: 05/04/21 Chief Complaint: Follow up post cervical injection did not help History of Present Illness: This is a 60 Y/O Female who was evaluated by our office today as a follow up. Pain: neck/headaches Quality: constant but varies in intensity Region: Neck is in center and into both sides but right has decreased with ablation.Reports headaches on occasion. Severity: headaches, aching, occasional sharp/stabbing Timing: Since August 2011 Aggravated by: sitting for long periods of time, bending Relieved by: nothing Pain score (out of 10): 9/10 Other info: Patient is here for a follow up-post cervical injection did not work. Reports pain in neck and thoracic region. Reports pain in right hip that shoots pain up right side of back. States pain in middle thoracic is constant. States she is seeing a neurologist tomorrow. States pain is constant and sharp. Needs refills. Review of Systems: Notes Headaches. Patient denies any fever, chills, change in weight without trying, vision or hearing problems. No cp, sob, rose, pnd, orthopnea, or peripheral edema.They note no lumps or swollen glands, no new rashes, changing moles, or change in bladder function but reports constipation. Mood has been good overall. Past Medical History: h/o Hyperlipidemia h/o Hypothyroidism h/o Anxiety h/o Chronic headaches h/o Brain Aneurysm and Craniotomy h/o osteoporosis 12/2019 s/p 4 brain surgeries s/p Tubal ligation s/p Tonsillectomy Family History: Mother: Diabetes, Afib Father: Lung cancer ======== Structured Family History ======== Father: Small cell lung cancer Mother: Atrial fibrillation, Diabetes mellitus Social History: [Tobacco: Current every day smoker (1 ppd x 30 yrs = 30 pk yrs) Start Date: 06/20/2014 Pipe Smoker: No Cigar Smoker: No Chewing Tobacco User: No] Living situation: Occupation: unemployed Tobacco: quit 04/06/17 EtOH: denies Rec. drugs: denies Allergies: streptomycin, Compazine, predniSONE Medications: 1) alendronate 70 mg oral tablet, once per week 2) Benadryl 25 mg oral capsule, prn 3) citalopram 40 mg oral tablet, One tablet daily 4) cyclobenzaprine 10 mg oral tablet, 1 PO qhs PRN spasms. 5) diphenhydrAMINE 25 mg oral tablet, 1 tab po q6 hrs prn with ondansetron 6) gabapentin 300 mg oral capsule, One tablet BID 7) levothyroxine 75 mcg (0.075 mg) oral tablet, Take 1 tablet by mouth every evening 8) metFORMIN 500 mg oral tablet, Take 1 tablet by mouth once daily 9) Multiple Vitamins oral capsule, One tablet daily 10) nortriptyline 50 mg oral capsule, Take 1 tablet by mouth once daily 11) Nurtec ODT 75 mg oral tablet, disintegrating, as directed prn 12) oxycodone-acetaminophen 5 mg-325 mg oral tablet, 1 tablet po daily to bid as needed for pain 13) Pepcid 40 mg oral tablet, Take 1 tablet by mouth once daily 14) Protonix 40 mg oral delayed release tablet, Take 1 tablet by mouth once daily 15) PT to eval and treat, M47.812, M79.1, M48.9 16) sucralfate 1 g oral tablet, Take 1 tablet by mouth 4 Times a Day 17) Tylenol Extra Strength 500 mg oral tablet, 2 pills a day as needed 18) Vitamin D3 2000 intl units oral capsule, One tablet daily 19) Voltaren 1% topical gel, apply 2 gm to affected area up to 4 times a day 20) xray of cervical spine, 3-7 views Physical Examination: Wt: 144.6 lb Ht/Ln: 62 in BMI: 26.4 BP: 114/74 Pulse: 99 RR: 16 Temp: 97.1F Well nourished and well developed in no acute distress. Alert and oriented to person, place and time. Affect is normal and appropriate. Mucosa pink and moist. Respirations even and unlabored. Neck is supple without significant lymphadenopathy or thyromegaly. Abdomen soft & non-tender. No HSM or masses appreciated. Extremities show no cyanosis, clubbing, or edema. Cervical paraspinal muscle tenderness cervical facet challenge is positive Cervical ROM is limited due to pain Bilateral thoracic facet challenge is positive improved Thoracic paraspinal muscle tenderness improved Motor and sensory exam is unchanged. 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 (Transmitted by ADOLFO JORDAN NP) DISCONTINUE: cyclobenzaprine 10 mg oral tablet 1 PO qhs PRN spasms., REASON: ineffective PRESCRIBE: oxycodone-acetaminophen 5 mg-325 mg oral tablet, 1 tablet po daily to bid as needed for pain, # 7, RF: 0. (Transmitted by ADOLFO JORDAN NP) PRESCRIBE: gabapentin 300 mg oral capsule, One tablet BID, # 60, RF: 0. PRESCRIBE: PT to eval and treat (# DEGENERATION OF CERVICAL INTERVERTEBRAL DISC (M50.30): # CERVICAL SPONDYLOSIS WITHOUT MYELOPATHY (M47.812) Pt has not had relief from her last cervical injections, will order PT and if no relief may consider a MRI. Continue with her current medications pt is using percocet on an as needed basis. UDS was performed today and will be reviewed on the next encounter to monitor pt medications compliance SOAPP score is 6. Life style modifications were also discussed today and the pt appears to understand. Reviewed with the pt today our opioid agreement and they appear to understand. Smoking cessation was discussed today and pt was encouraged. There are no signs of diversion or addiction with the pt, there is also no signs of abuse or misuse, continues to do well with her medications without any side effects, we will continue monitoring the pt closely. Risks and benefits of the above meds were discussed with the pt and she appears to understand. The common side effects of the medications were discussed and all of her questions and concerns were answered and she appears to understand Pt is to continue with her HEP. Pt has tried multiple modalities with no success, we will schedule the pt for a right thoracic facet steroid injection T5-T8 under fluoroscopy We have discussed the risks, benefits as well as alternatives of the procedure and the patient appears to understand and would like to proceed with the above plan. The above plan was discussed today with the pt in details and she appears to understand and agrees to continue with the plan.
[2021-05-04] VITALS (7 sets, daily range): BP systolic 121–132; BP diastolic 70–87; PULSE 86–97; RESP 16–20; TEMP 35.8–36.6; O2SAT 97–100; BMI 26.6
[2021-05-04] MEDS: Lactated Ringers 1,000 ML 15 ML IV (08:58)
[2021-05-04 09:05] LABS: Bedside Glucose 118 mg/dL (70-110)
--- NOTE | 2021-05-04 10:05 | RAD_ITS ---
STUDY: X-RAY - THORACIC SPINE REASON FOR EXAM: Female, 60 years old. Intraprocedural digital documentation images. TECHNIQUE: 4 intraprocedural digital documentation images of facet injections from T5 to T8 on the right. COMPARISON: None. FINDINGS: For intraprocedural documentation images show needle at the T5-6 to the T7-8 interspace is. The soft tissue structures are unremarkable. RAD/Thoracic Spine 3 Views IMPRESSION: Intraprocedural digital documentation images. Electronically Signed: Adrián Parikh MD at 13:37 EST ,
[2021-05-04] MEDS: Bupivacaine 0.25% 30 ML Vial (10:18)
[2021-05-04] MEDS: Lidocaine 1% (5 ml sdv) 5 ML Vial (10:18)
[2021-05-04] MEDS: MethylPREDNISolone Acetate 80 MG/ML Vial (10:19)
--- NOTE | 2021-05-04 11:17 | OP.PCM_ITS ---
Report of Operation Date of Procedure: 05/04/21 Pre-Operative Diagnosis: Thoracic spondylosis, thoracic degenerative disc disea se, thoracic facet arthropathy Post-Operative Diagnosis: Thoracic spondylosis, thoracic degenerative disc disease, thoracic facet arthropathy Surgery/Procedure Performed:: Right-sided thoracic medial branch block at T5, T6, T7, T8 Description of Surgical Findings:: DESCRIPTION OF PROCEDURE: History and physical of today was reviewed. Risks and benefits of the procedure were explained. The patient understood and agreed to proceed. Informed consent was obtained. IV inserted per routine protocol. The patient was taken to the operating room and placed in the prone position with a pillow positioned underneath the chest. The mid back area was prepped and draped in a sterile fashion using iodine x3. Under fluoroscopy guidance on AP view, the T5 through T8 vertebral bodies were visualized. The skin and subcutaneous tissue was anesthetized with approximately 5 mL of 1% lidocaine using a 25-gauge regular needle. Under direct visualization on fluoroscopy, at approximately 15-degree angle, starting on the right T5, ending on the right T8, passing through the T6 and T7, using a 25-gauge 3-1/2-inch spinal needle, the needle was passed through the skin. The tip of the needle was maneuvered and directed towards the epiphyseal junction of each corresponding vertebra. Once the tip of the needle was at the vicinity of the medial branch and in contact with the bone, the needle was pulled approximately 2 mm off the bone. After negative aspiration for blood or CSF and confirmation on AP as well as oblique view and lateral view, a total of 6 mL of preservative-free 0.25% Marcaine with 80 mg of Depo- Medrol was injected in divided doses between those four levels. The needles were then removed intact. The patient experienced no sign or symptoms of intrathecal or intravascular injection. The patient experienced no paresthesia. The procedure was completed without any apparent difficulty or any complications. The patient appeared to tolerate it well. ASSESSMENT AND PLAN: This is a 60-year-old female with Thoracic spondylosis, thoracic degenerative disc disease, thoracic facet arthropathy status post right thoracic medial branch block at T5-T8, the patient will continue her current medications, the patient will follow in approximately 1-2 weeks for reevaluation. Type of Anesthesia: MAC Estimated Blood Loss (mL): Minimal Complications None.
== END 2021-05-04 23:59 | disposition home or self-care (01) ==
LOC: SDC 08:22 → AC 08:23
PROVIDERS: PCP Family Medicine; Referring Provider Anesthesiology Pain Medicine; Visit Provider Anesthesiology Pain Medicine
PROC: 3E0R3BZ Introduction of Anesthetic Agent into Spinal Canal, Percutaneous Approach (ICD-10-PCS; CPT 62281; principal; 2021-05-04 10:00)
DX: M50.30 Other cervical disc degeneration, unspecified cervical region (principal); M47.814 Spondylosis without myelopathy or radiculopathy, thoracic region; F17.200 Nicotine dependence, unspecified, uncomplicated; M51.34 Other intervertebral disc degeneration, thoracic region; M47.812 Spondylosis without myelopathy or radiculopathy, cervical region; E78.5 Hyperlipidemia, unspecified; E03.9 Hypothyroidism, unspecified; F41.9 Anxiety disorder, unspecified; Z79.890 Hormone replacement therapy; Z79.84 Long term (current) use of oral hypoglycemic drugs; Z79.899 Other long term (current) drug therapy; Z79.891 Long term (current) use of opiate analgesic; K21.9 Gastro-esophageal reflux disease without esophagitis; Z78.0 Asymptomatic menopausal state; E78.00 Pure hypercholesterolemia, unspecified; Z86.73 Personal history of transient ischemic attack (TIA), and cerebral infarction without residual deficits
CPT/HCPCS: 64491; 64492; 01992; 64490; 72072; 82962; J7120

== ENCOUNTER 2021-05-20 06:54 | Day surgery (SDC) | payer MEDICAID, SELFPAY ==
[2021-05-20] VITALS (7 sets, daily range): BP systolic 104–141; BP diastolic 54–84; PULSE 76–88; RESP 16–20; TEMP 36.1–36.4; O2SAT 93–100; BMI 25.8
--- NOTE | 2021-05-20 | GASB_PTH ---
PATIENT: SOPHIE STARKEY LOC: EN U#:[id number] AGE/SX: 60/F ROOM: RE05/20/[address]: Dr. Lauren Bruner MD : 1960 BED: DIS: 05/20/2021 SPEC #: [id number] RECD: 05/20/21 16:45 STATUS: PETER CHIOMA #: [id number] GRACE: 05/20/21 00:[address]: Lauren Bruner DEPT: SURGICAL PATHOLOGY RECD BY: Abdelrahman Duarte ENTERED: 05/21/21 08:46 SP TYPE: Gastric Bx OTHR DR: Dr. Caleb Fountain MD Tissues: A - Gastric mucous membrane B - Gastric mucous membrane C - Transverse colon Procedures: Special Stain Group II Surgery Specimen Level IV Alcian Blue/PAS (control) HEADER OPERATION: Colonoscopy, EGD ? open access (MAC) PRE-OP DIAGNOSIS: Gardner?s esophagus, screening TISSUE SUBMITTED: A ? Antrum biopsy for histo and H. pylori, B ? Gastroesophageal junction biopsy, C ? Transverse colon biopsy MICROSCOPIC DIAGNOSIS A. Gastric antrum, biopsy: Mild chronic inflammation. See comment. B. Gastroesophageal junction, biopsy: Minimal chronic inflammation. Focal goblet cell metaplasia consistent with Gardner?s esophagus. No evidence of dysplasia. See comment. C. Transverse colon, biopsy: Tubular adenoma. AM:cam 05/22/2021 COMMENT A. The results of immunohistochemistry for Helicobacter pylori will be reported separately ([id number]). B. Immunohistochemistry ([id number]) for P53 and Ki-67 will be performed and results will be reported separately. Alcian blue/PAS stain with matched control supports the above diagnosis. MICROSCOPIC DESCRIPTION Slides are reviewed. GROSS DESCRIPTION A - Received in fixative is one container labeled with the patient's name and designated antrum biopsy. The specimen consists of one irregular fragment of light roach soft tissue that measures 0.6 x 0.2 x 0.1 cm. The specimen is totally submitted in one cassette. B - Received in fixative is one container labeled with the patient's name and designated GE junction biopsy. The specimen consists of multiple irregular fragments of light roach soft tissue that in aggregate measure 0.5 x 0.3 x 0.1 cm. The specimen is totally submitted in one cassette. C - Received in fixative is one container labeled with the patient's name and designated transverse colon biopsy. The specimen consists of one irregular fragment of light roach soft tissue that measures 0.5 x 0.3 x 0.1 cm. The specimen is totally submitted in one cassette. / AM:cam 05/21/2021 TC:3 CPT: 78407 x3, 87291
--- NOTE | 2021-05-20 07:13 | H&P.OPEN ---
HPI - General HPI Narrative SOPHIE STARKEY, is a 60 F who presents for EGD and colonoscopy. Patient has history of colon polyps last colonoscopy was in 2019. patient also had EGD the same time which showed Gardner's. Patient presents for screening. She states that the omeprazole has been working like she did something she should not be eating. Also does complain of some discomfort the lower esophagus. Patient does have issues with constipation still, denies any blood. Denies any immediate family history of colon cancer. [facility] Medical History (Updated 05/18/21 @ 08:44 by Mylene Soto) Acute bronchitis Anxiety Arthritis Back pain Depression Diabetes Easy bruising Excessive bleeding Gastric reflux High cholesterol History of diverticulitis History of edema Migraine headache Post-menopausal Smoker Stroke/cerebrovascular accident Thyroid disease Wears dentures Wears glasses Home Medications cholecalciferol (vitamin D3) 2,000 unit PO DAILY 02/18/16 [History Last Taken 04/15/19] citalopram 40 mg PO QHS 02/18/16 [History Last Taken 04/15/19] multivitamin 1 ea PO DAILY 02/18/16 [History Last Taken 04/15/19] diclofenac sodium 1 % topical gel 2 g TOPICAL ONCE PRN 04/25/18 [History Last Taken 04/15/19] gabapentin 300 mg capsule 300 mg PO BID cap 04/25/18 [History Last Taken 05/14/19 06:45] nortriptyline 50 mg capsule 75 mg PO QHS PRN PRN cap 04/25/18 [History Last Taken 04/15/19] omeprazole 20 mg capsule,delayed release 20 mg PO DAILY 04/25/18 [History Last Taken 05/14/19 06:45] atorvastatin 20 mg PO QHS 09/22/18 [History Last Taken 04/15/19] levothyroxine 75 mcg PO DAILY 11/07/20 [History Last Taken Unknown] bupropion HCl 150 mg 24 hr tablet, extended release 150 mg PO DAILY tab 12/26/20 [History Last Taken Unknown] lancets 30 gauge #100 ea 12/26/20 [History Last Taken Unknown] onabotulinumtoxinA 100 unit solution for injection 200 unit IM .[id number] 12/26/20 [History Last Taken Unknown] metformin 500 mg PO BID 05/18/21 [History Last Taken Unknown] rimegepant [Nurtec ODT] 75 mg PO DAILY PRN PRN 05/18/21 [History Last Taken Unknown] Allergy/AdvReac Type Severity Reaction Status Date / Time prochlorperazine Allergy Unknown Verified 05/18/21 08:23 [From Compazine] streptomycin Allergy Unknown Verified 05/18/21 08:23 Family History Father Asthma Bleeding disorder Cancer skin Heart disease Hypertension High cholesterol Mother Arthritis Diabetes Heart disease High cholesterol Hypertension Kidney disease Osteoporosis Cancer skin Surgical History (Updated 05/18/21 @ 08:44 by Mylene Soto) History of brain surgery History of selective injection of anesthetic agent around lumbar nerve root History of tubal ligation Social History Smoking Status: Current every day smoker tobacco type: cigarettes alcohol intake: never substance use type: does not use Past Medical/Surgical History Planned Operation Planned Operative Procedure/s: Colonoscopy, EGD S.O.S: No Previous Hospitalizations/Surgeries HX Hospitalizations: No HX of Surgeries: tonsillectomy tubal ligation brain surgery x4 for aneurysms/NO MRI ALLOWED EGD/COLONOSCOPY 2019 STEROID INJECTIONS/ DR GUZMAN Any Problems With Anesthesia: No You/Your Family Experience Fever (Hyperthermia) With Anes: No Cholinesterase deficiency: No Cardiovascular Hx Chest Pain within Last 2 months: No Hx of Irregular Heartbeat and/or Afib: No Hx Heart Attack: No Hx Congestive Heart Failure: No Hx Rheumatic Fever: No Hx Hypertension: No Hx Internal Defibrillator: No Hx Pacemaker: No Hx Cardiac Catheterization: No Hx Cardiac Surgery/Stents/Etc.: No Hx Stress Test: No Hx Pain in Legs when Walking/Leg Cramps: No Respiratory Chronic Cough: No HX of Shortness of Breath: No (.) Hoarseness: No Hx Chronic Obstructive Pulmonary Disease (COPD): No Hx Asthma: No Hx Emphysema: No Hx Sleep Apnea: No CPAP: No Hx Respiratory Tract Infection/Cold (presently): No Do You Snore Loudly (louder than talking or can be heard): No Do You Often Feel Tired/ Fatigued/ Sleepy Dring Daytime?: No Has Anyone Observed You Stop Breathing During Sleep?: Yes Result (for STOP score): Negative Hx Smoking: Yes (1ppd for 40 yrs) Smoking Status: Current every day smoker Gastrointestinal Hx Gastroesophageal Reflux: Yes Controlled With Meds: Yes (OMEPRAZOLE) Hx Gastrointestinal Disorders: Yes (diverticulitis in the past) Hx Gastrointestinal Bleed: No Hx Ulcer: No Hx Hiatal Hernia: No Difficulty Chewing/Swallowing: No Special diet followed at home: No Hx Unplanned Weight Loss of 20#: No HX Unplanned Weight Gain of 20#: No Neurological Hx Seizures: No HX Syncope/Blackout Spells/Unconsciousness: No Hx Transient Ischemic Attacks (TIA): No (DR Gordon BANUELOS) Hx Multiple Sclerosis: No Hx Parkinson's Disease: No Hx Head/Neck Injury: Yes (neck pain/injections as needed) Hx Headaches: Yes (botox injections q3mo) Hx Back Injury/Pain: Yes (thoracic back pain/back injections) Recent Onset of Speech Difficulty: No Restless Legs: No Does patient have nerve stimulator: No Blood Disorder Hx Leukemia: No Bleeding Tendencies: No Hx Deep Vein Thrombosis: No Hx High Cholesterol: Yes (on med) Blood Transmitted Disease: No Hx Hepatitis: No Hx Cirrhosis: No Hx Anemia: No Hx Blood Disorders: No Reproduction Is Patient Lactating: No Hx Hysterectomy: No Hx Tubal Ligation: Yes Are You Post Menopause: Yes Genitourinary Hx Renal Disease: No Hx Dialysis: No Musculoskeletal Hx Arthritis: Yes Hx Rheumatoid Arthritis: No Hx Gout: No Recent Onset of an Orthopedic Problem: No Endocrine Hx Diabetes: Yes Thyroid Disease: Yes (on med) Hx Steroid Therapy: No Psycho/Social Hx Substance Use: No Hx Alcohol Use: No Hx Anxiety: Yes (on med) Hx Depression: Yes (on med) Mental Illness: No Hx Dementia: No Miscellaneous Hx Cancer: No Recent Exposure to Contagious Disease: No Hx of C-Diff: No Any Loose Teeth: No (lower partial) Allergies prochlorperazine [From Compazine] Allergy (Verified 05/18/21 08:23) Unknown streptomycin Allergy (Verified 05/18/21 08:23) Unknown Discharge Is Pt Admitted From a Longterm, or a Care Home: No Who Could Help: family After D/C, Where Do you Plan to Go: Return Home From the PAT History Number of Risk Factors: 5 Physical Exam Const alert, oriented x3 and no apparent distress HEENT normocephalic and head/scalp atraumatic Resp normal respiratory effort Cardio regular rate GI soft to palpation and non-tender; Negative for non-distended Palpation: Negative for guarding Extremity no clubbing, cyanosis or edema Neuro CN's II-XII intact bilaterally Psych mental status grossly normal Assessment & Plan Assessment/Plan (1) Gardner esophagus: (2) Encounter for screening for malignant neoplasm of colon: Procedure Criteria Type of Procedure Procedure Type: Elective Elective Risks - COVID COVID Risk Discussion: The surgeon/proceduralist and patient have discussed in detail the risk of exposure to and/or potential harm posed by the COVID-19 virus with having a surgery/procedure at this time versus the risk of delaying the surgery/procedure. It is not possible to know either the risk of delaying the surgery or procedure or chance of getting an infection with perfect accuracy, but a joint decision was made between the patient and the surgeon/proceduralist to proceed at this time with the scheduled surgery/procedure as indicated on the consent form. Surgery Risks - Colonoscopy Risks Include but are not Limited To: Risks include but are not limited to: Bleeding, perforation requiring further surgery, inability to complete colonoscopy requiring barium enema.
[2021-05-20] MEDS: Lactated Ringers 1,000 ML 15 ML IV (07:43)
[2021-05-20 08:11] LABS: Bedside Glucose 86 mg/dL (70-110)
--- NOTE | 2021-05-20 08:30 | IMM_PTH ---
PATIENT: SOPHIE STARKEY LOC: EN U#:[id number] AGE/SX: 60/F ROOM: RE05/20/[address]: Dr. Lauren Bruner MD : 1960 BED: DIS: 05/20/2021 SPEC #: [id number] RECD: 05/21/21 13:20 STATUS: PETER REBora #: [id number] GRACE: 05/20/21 08:[address]: Lauren Bruner DEPT: IMMUNOHISTOCHEMISTRY RECD BY: Fernanda Puckett ENTERED: 05/21/21 13:21 SP TYPE: IMMUNO OTHR DR: Dr. Caleb Fountain MD Tissues: A - Stomach, NOS B - Gastric mucous membrane Procedures: H Pylori (initial) P53 (initial) KI-67 (add) PHYSICIAN & INSTITUTION [place] [id number] SPECIMEN INFORMATION: Tissue Source: A ? Antrum biopsy, B ? Gastroesophageal junction biopsy Clinical Info: Gardner?s esophagus, screening Specimen Number: [id number] A & B CPT code: 65506 x2, 68186 METHODOLOGY: Deparaffinized sections of prefer/formalin-fixed tissue or PAP/DQ stained slides are incubated with monoclonal/polyclonal antibodies/oligonucleotide probes. Localization is made via biotin free immunoperoxidase method. Appropriate controls are performed and reacted as expected. Results on target cell population are indicated in the following table: RESULTS: ANTIBODY / CLONE RESULT Block A H Pylori (polyclonal) negative Block B P53 (DO-7) negative Ki-67 (30-9) positive, low These tests were developed and their performance characteristics determined by [facility]. They may not have been cleared or approved by the U.S. Food and Drug Administration. The FDA has determined that such clearance or approval is not necessary. The above immunohistochemical/dualISH markers are ordered and reviewed by the pathologist. INTERPRETATION: A. Antrum biopsy: Negative for Helicobacter pylori organisms. B. Gastroesophageal junction, biopsy: No evidence of dysplasia. AM:cam 05/25/2021
--- NOTE | 2021-05-20 09:14 | OP.EGD_ITS ---
Patient Name: Nerissa Beach Procedure Date: 05/20/2021 8:22 AM Date of : 1960 Age: 60 Procedure: Upper GI endoscopy Indications: Screening for Gardner's esophagus Providers: Lauren Bruner MD Medicines: Monitored Anesthesia Care Patient Profile: This is a 60 year old female. Complications: No immediate complications. Procedure: Pre-Anesthesia Assessment: - Prior to the procedure, a History and Physical was performed, and patient medications and allergies were reviewed. The patient's tolerance of previous anesthesia was also reviewed. The risks and benefits of the procedure and the sedation options and risks were discussed with the patient. All questions were answered, and informed consent was obtained. Prior Anticoagulants: The patient has taken no previous anticoagulant or antiplatelet agents. ASA Grade Assessment: Per anesthesia. After reviewing the risks and benefits, the patient was deemed in satisfactory condition to undergo the procedure. After obtaining informed consent, the endoscope was passed under direct vision. Throughout the procedure, the patient's blood pressure, pulse, and oxygen saturations were monitored continuously. The gastroscope was introduced through the mouth, and advanced to the second part of duodenum. The upper GI endoscopy was accomplished without difficulty. The patient tolerated the procedure well. Scope In: 8:29:03 AM Scope Out: 8:34:33 AM Total Procedure Duration Time 0 hours 5 minutes 30 seconds Findings: The Z-line was variable and was found 37 cm from the incisors. Several biopsies were obtained with cold forceps for histology at the gastroesophageal junction. Mildly erythematous mucosa without bleeding was found in the gastric antrum. Biopsies were taken with a cold forceps for histology. Biopsies were taken with a cold forceps for Helicobacter pylori cultures. The cardia and gastric fundus were normal on retroflexion. The examined duodenum was normal. Impression: - Z-line variable, 37 cm from the incisors. - Erythematous mucosa in the antrum. Biopsied. - Normal examined duodenum. - Several biopsies were obtained at the gastroesophageal junction. Recommendation: - Await pathology results. - Repeat upper endoscopy in 3 years for screening purposes. - Use Protonix (pantoprazole) 40 mg PO daily. - Continue present medications. Procedure Code(s): --- Professional --- 84743, PT, Esophagogastroduodenoscopy, flexible, transoral; with biopsy, single or multiple Diagnosis Code(s): --- Professional --- K22.8, Other specified diseases of esophagus K31.89, Other diseases of stomach and duodenum Z13.810, Encounter for screening for upper gastrointestinal disorder CPT copyright 2017 [employer]. All rights reserved. The codes documented in this report are preliminary and upon federal mediator review may be revised to meet current compliance requirements. MD Lauren Beasley MD 05/20/2021 9:14:15 AM This report has been signed electronically. Number of Addenda: 0 Note Initiated On: 05/20/2021 8:22 AM
--- NOTE | 2021-05-20 09:15 | OP.CCLET_ITS ---
05/20/2021 Alexi Fountain [address] [place] [address] Re : Upper GI endoscopy procedure for Nerissa Beach Dear Dr. Fountain This procedure was performed on Thursday, May 20, 2021. My impressions and recommendations are as follows: Impressions : - Z-line variable, 37 cm from the incisors. - Erythematous mucosa in the antrum. Biopsied. - Normal examined duodenum. - Several biopsies were obtained at the gastroesophageal junction. Recommendations : - Await pathology results. - Repeat upper endoscopy in 3 years for screening purposes. - Use Protonix (pantoprazole) 40 mg PO daily. - Continue present medications. My findings are described in the full procedure note, which is enclosed. If I can be of further assistance, please feel free to contact me at Doctor phone number(s): , Work: . Sincerely, MD Lauren Beasley MD 05/20/2021 9:14:15 AM This report has been signed electronically.
--- NOTE | 2021-05-20 09:20 | OP.COLON_ITS ---
Patient Name: Nerissa Beach Procedure Date: 05/20/2021 8:36 AM Date of : 1960 Age: 60 Procedure: Colonoscopy Indications: High risk colon cancer surveillance: Personal history of colonic polyps Providers: Lauren Bruner MD Medicines: Monitored Anesthesia Care Patient Profile: This is a 60 year old female. Last Colonoscopy: 2018. Complications: No immediate complications. Procedure: Pre-Anesthesia Assessment: - Prior to the procedure, a History and Physical was performed, and patient medications and allergies were reviewed. The patient's tolerance of previous anesthesia was also reviewed. The risks and benefits of the procedure and the sedation options and risks were discussed with the patient. All questions were answered, and informed consent was obtained. Prior Anticoagulants: The patient has taken no previous anticoagulant or antiplatelet agents. ASA Grade Assessment: Per anesthesia. After reviewing the risks and benefits, the patient was deemed in satisfactory condition to undergo the procedure. After I obtained informed consent, the scope was passed under direct vision. Throughout the procedure, the patient's blood pressure, pulse, and oxygen saturations were monitored continuously. The pediatric colonoscope was introduced through the anus and advanced to the cecum, identified by the appendiceal orifice, ileocecal valve and palpation. The colonoscopy was technically difficult and complex due to a tortuous colon. The patient tolerated the procedure well. The quality of the bowel preparation was good. Scope In: 8:38:03 AM Scope Withdrawal Time 0 hours 11 minutes 41 seconds Scope Out: 9:08:32 AM Total Procedure Duration Time 0 hours 30 minutes 29 seconds Findings: The perianal and digital rectal examinations were normal. A less than 5 mm polyp was found in the transverse colon. The polyp was sessile. The polyp was removed with a cold biopsy forceps. Resection and retrieval were complete. Multiple small and medium diverticula were found in the sigmoid colon and descending colon. The exam was otherwise without abnormality on direct and retroflexion views. Impression: - One less than 5 mm polyp in the transverse colon, removed with a cold biopsy forceps. Resected and retrieved. - Diverticulosis in the sigmoid colon and in the descending colon. - The examination was otherwise normal on direct and retroflexion views. Recommendation: - Discharge patient to home. - High fiber diet. - Continue present medications. - Await pathology results. - Repeat colonoscopy in 5 years for surveillance based on pathology results. Procedure Code(s): --- Professional --- 96546, PT, Colonoscopy, flexible; with biopsy, single or multiple Diagnosis Code(s): --- Professional --- Z86.010, Personal history of colonic polyps D12.3, Benign neoplasm of transverse colon (hepatic flexure or splenic flexure) K57.30, Diverticulosis of large intestine without perforation or abscess without bleeding CPT copyright 2017 [employer]. All rights reserved. The codes documented in this report are preliminary and upon learning strategist review may be revised to meet current compliance requirements. MD Lauren Beasley MD 05/20/2021 9:19:45 AM This report has been signed electronically. Number of Addenda: 0 Note Initiated On: 05/20/2021 8:36 AM
--- NOTE | 2021-05-20 09:21 | OP.CCLET_ITS ---
05/20/2021 Alexi Fountain [address] [place] [address] Re : Colonoscopy procedure for Nerissa Beach Dear Dr. Fountain This procedure was performed on Thursday, May 20, 2021. My impressions and recommendations are as follows: Impressions : - One less than 5 mm polyp in the transverse colon, removed with a cold biopsy forceps. Resected and retrieved. - Diverticulosis in the sigmoid colon and in the descending colon. - The examination was otherwise normal on direct and retroflexion views. Recommendations : - Discharge patient to home. - High fiber diet. - Continue present medications. - Await pathology results. - Repeat colonoscopy in 5 years for surveillance based on pathology results. My findings are described in the full procedure note, which is enclosed. If I can be of further assistance, please feel free to contact me at Doctor phone number(s): , Work: . Sincerely, MD Lauren Beasley MD 05/20/2021 9:19:45 AM This report has been signed electronically.
== END 2021-05-20 23:59 | disposition home or self-care (01) ==
LOC: EN 06:56 → AC 06:57
PROVIDERS: PCP Family Medicine; Referring Provider Family Medicine; Visit Provider Surgery
PROC: 0DJD8ZZ Inspection of Lower Intestinal Tract, Via Natural or Artificial Opening Endoscopic (ICD-10-PCS; CPT 45378; principal; 2021-05-20 08:25)
DX: Z12.11 Encounter for screening for malignant neoplasm of colon (principal); E11.9 Type 2 diabetes mellitus without complications; D12.3 Benign neoplasm of transverse colon; K21.00 Gastro-esophageal reflux disease with esophagitis, without bleeding; K57.30 Diverticulosis of large intestine without perforation or abscess without bleeding; E07.9 Disorder of thyroid, unspecified; E78.00 Pure hypercholesterolemia, unspecified; M19.90 Unspecified osteoarthritis, unspecified site; F41.9 Anxiety disorder, unspecified; F17.200 Nicotine dependence, unspecified, uncomplicated; Z79.84 Long term (current) use of oral hypoglycemic drugs; Z79.890 Hormone replacement therapy; Z79.899 Other long term (current) drug therapy; Z78.0 Asymptomatic menopausal state; Z86.010 Personal history of colon polyps
CPT/HCPCS: 43239; 45380; 82962; 88305; 88313; 88341; 88342; J7120

== ENCOUNTER 2021-10-26 07:14 | Day surgery (SDC) | payer MEDICAID, SELFPAY ==
[2021-10-12 07:53] LABS: ALB/GLOB Ratio 0.9 RATIO (0.9-2.4); AST(SGOT) 16 U/L (15-37); Alanine Aminotransfer ALT/SGPT 27 U/L (13-56); Albumin, Serum 3.5 g/dL (3.2-5.0); Alkaline Phosphatase 72 U/L (45-117); Anion Gap 6 (5-15); BUN 17 mg/dL (7-18); BUN/Creat Ratio 19.4 RATIO (10-20); Chloride 103 mmol/L (98-107); Cholesterol 159 mg/dL (200); Creatinine, Serum 0.88 mg/dL (0.55-1.02); EST Glomerular Filtration Rate 69 mL/min (>60); Est Glom Filt Rate - Afr Amer 84 mL/min (>60); Globulin 3.8 g/dL (2.2-4.2); Glucose 119 mg/dL (74-106); High Density Lipoprotein 68 mg/dL; Potassium 3.7 mmol/L (3.5-5.1); Protein, Total 7.3 g/dL (6.4-8.2); Sodium Level 138 mmol/L (136-145); Thyroid Stim Hormone (TSH) 0.69 uIU/mL (0.358-3.74); Triglycerides 162 mg/dL; Very Low Density Lipoprotein 32 mg/dL (5-40)
[2021-10-26 07:46] VITALS: BP 134/67; PULSE 93; RESP 16; TEMP 37.1; O2SAT 100; BMI 25.0
--- NOTE | 2021-10-26 07:50 | RAD_ITS ---
PROCEDURE: Fluoroscopy guided radiofrequency ablation.. DATE OF EXAMINATION: 10/26/2021 INDICATION: 51-year-old female presenting with low back pain. EXAMINATION/TECHNIQUE: IR Fluoro Guide radiofrequency ablation COMPARISON: None. FLUOROSCOPY TIME: 0:19 minutes/seconds. FINDINGS: 10 spot fluoroscopic images were obtained intraoperatively. Fluoroscopic images of the cervical spine were presented, images demonstrate needle placement along the left lower cervical spine C4-C7. No radiologist was present for the procedure, please refer to operative report for details. RAD/Cerv Spine 2 or 3 Views IMPRESSION: Please refer to operative report for details. Electronically Signed: Andrei Frias MD at 13:54 EDT ,
[2021-10-26] MEDS: Lidocaine 1% (30 ml sdv) 30 ML Vial 15 ML INFILT (08:18)
[2021-10-26] MEDS: Bupivacaine 0.25% 30 ML Vial (08:24)
[2021-10-26] MEDS: MethylPREDNISolone Acetate 40 MG/ML Vial IM (08:24)
[2021-10-26 08:40] VITALS: BP 114/62; BP 134/67; PULSE 104; RESP 18; TEMP 36.2; O2SAT 92
[2021-10-26 08:45] VITALS: BP 121/71; BP 134/67; PULSE 100; RESP 16; O2SAT 100
[2021-10-26 08:50] VITALS: BP 134/67; BP 137/74; PULSE 93; RESP 16; O2SAT 98
[2021-10-26 08:55] VITALS: BP 134/67; BP 148/81; PULSE 92; RESP 16; TEMP 36.4; O2SAT 99
[2021-10-26 09:10] LABS: Bedside Glucose 154 mg/dL (74-106)
[2021-10-26 09:14] VITALS: BP 134/67
--- NOTE | 2021-10-26 10:57 | OP.PCM_ITS ---
Report of Operation Date of Procedure: 10/26/21 Description of Surgical Findings:: PREOPERATIVE DIAGNOSIS: Cervical spondylosis, cervical degenerative disc disease, cervical facet arthropathy POSTOPERATIVE DIAGNOSIS: Cervical spondylosis, cervical degenerative disc disease, cervical facet arthropathy PROCEDURE PERFORMED: Left-sided radiofrequency ablation of the medial branch at C4, C5, C6, and C7. ANESTHESIA: MAC. BLOOD LOSS: Minimal. COMPLICATIONS: None. DESCRIPTION OF PROCEDURE: History and physical of today was reviewed. Risks and benefits of the procedure were explained. The patient understood and agreed to proceed. Informed consent was obtained. IV inserted per routine protocol. The patient was taken to the operating room and placed in the prone position with a pillow positioned underneath the chest. The neck area was prepped and draped in a sterile fashion using iodine x3. Under fluoroscopy guidance on an AP view, the C4 through C7 vertebral bodies were visualized. The skin and subcutaneous tissue was anesthetized with approximately 10 mL of 1% lidocaine using a 25-gauge regular needle. Under direct visualization on fluoroscopy on a lateral view, using a 21-gauge 10-cm with a 10-mm curved active-tip radiofrequency ablation needle, the needle was passed through the skin. The tip of the needle was maneuvered and directed towards the epiphyseal junction of each corresponding vertebra, starting on the left C4, ending on the left C7, passing through the C5 and C6. Once the tip of the needle was at the vicinity of the medial branch and at the middle of the trapezoid on the lateral view, the stylette of each needle was then removed. After negative aspiration of blood or CSF and confirmation on AP, oblique as well as lateral view, radiofrequency ablation probe was then inserted at each level. Impedance was then recorded at C4 to be 257 ohm, at C5 to be 304 ohm, at C6 to be 264 ohm, and at C7 to be 288 ohm. Motor-evoked potential was then initiated to 1.5 volt without any motor response to each corresponding level or the left arm. The probe was then removed intact and a total of 4 mL of preservative-free 1% lidocaine was injected in divided doses between those four levels after negative aspiration of blood or CSF. After repeated confirmation, the radiofrequency ablation probe was then inserted and after repeated confirmation on AP, oblique as well as lateral view, radiofrequency ablation was then initiated to approximately 80 degree Celsius for 60 second at each level. Once concluded, the probe was then removed intact. A total of 4 mL of preservative-free 0.25% Marcaine with 40 mg of Depo-Medrol was injected in divided doses between those four levels. The needles were then removed intact. The patient experienced no sign or symptoms of intrathecal or intravascular injection. The patient experienced no paresthesia. The procedure was completed without any apparent difficulty or any complications. The patient appeared to tolerate it well. Sensory as well as motor exam was unchanged from prior to the procedure. ASSESSMENT AND PLAN: This is a 61-year-old female with cervical spondylosis, cervical degenerative d isc disease, cervical facet arthropathy, status post left-sided cervical radiofrequency ablation of the medial branch C4?through C7, patient will continue her current medications, patient will follow in approximately 2 weeks for reevaluation.
== END 2021-10-26 09:22 | disposition home or self-care (01) ==
LOC: SDC 07:14 → AC 07:27
PROVIDERS: PCP Family Medicine; Referring Provider Anesthesiology Pain Medicine; Visit Provider Anesthesiology Pain Medicine
PROC: (CPT 64633; principal; 2021-10-26 08:45)
DX: M47.812 Spondylosis without myelopathy or radiculopathy, cervical region (principal); M50.30 Other cervical disc degeneration, unspecified cervical region; Z79.84 Long term (current) use of oral hypoglycemic drugs; Z79.890 Hormone replacement therapy; Z79.899 Other long term (current) drug therapy
CPT/HCPCS: 64633; 64634; 36415; 72040; 76000; 80053; 80061; 82962; 84443; J7120; J2405

== ENCOUNTER 2022-01-11 05:49 | Day surgery (SDC) | payer MEDICAID, SELFPAY ==
[2022-01-11] VITALS (7 sets, daily range): BP systolic 92–132; BP diastolic 53–97; PULSE 91–97; RESP 16–18; TEMP 36.2–37.2; O2SAT 89–100; BMI 24.7
[2022-01-11] MEDS: Lactated Ringers 1,000 ML 15 ML IV (06:35)
[2022-01-11 07:05] LABS: Bedside Glucose 122 mg/dL (74-106)
--- NOTE | 2022-01-11 07:30 | RAD_ITS ---
INDICATION: RADIO FREQ ABLATION C4-C7, RIGHT EXAMINATION/TECHNIQUE: 7 spot images. FINDINGS: 4 needles and wires at the posterolateral aspect of the cervical spine. Fluoroscopy time 10.1 seconds. Radiation dose 0.82 mGy. RAD/Cerv Spine 2 or 3 Views IMPRESSION: Fluoroscopic guidance for right C4-7 radiofrequency ablation. Please refer to procedure note. Electronically Signed: Florecita Marcial MD at 9:04 EDT ,
[2022-01-11] MEDS: Lidocaine 1% (30 ml sdv) 30 ML Vial (07:40)
[2022-01-11] MEDS: MethylPREDNISolone Acetate 40 MG/ML Vial IM (07:48)
[2022-01-11] MEDS: Bupivacaine 0.25% 30 ML Vial OPERA.SITE (07:50)
--- NOTE | 2022-01-11 10:07 | OP.PCM_ITS ---
Report of Operation Date of Procedure: 01/11/22 Description of Surgical Findings:: PREOPERATIVE DIAGNOSIS: Cervical spondylosis, cervical degenerative disc disease, cervical facet arthropathy POSTOPERATIVE DIAGNOSIS: Cervical spondylosis, cervical degenerative disc disease, cervical facet arthropathy PROCEDURE PERFORMED: Right sided cervical radiofrequency ablation of the medial branch at C4, C5, C6, and C7. ANESTHESIA: MAC. BLOOD LOSS: Minimal. COMPLICATIONS: None. DESCRIPTION OF PROCEDURE: History and physical of today was reviewed. Risks and benefits of the procedure were explained. The patient understood and agreed to proceed. Informed consent was obtained. IV inserted per routine protocol. The patient was taken to the operating room and placed in the prone position wi th a pillow positioned underneath the chest. The neck area was prepped and draped in a sterile fashion using iodine x3. Under fluoroscopy guidance on an AP view, the C4 through C7 vertebral bodies were visualized. The skin and subcutaneous tissue was anesthetized with approximately 10 mL of 1% lidocaine using a 25-gauge regular needle. Under direct visualization on fluoroscopy on a lateral view, using a 21-gauge 10-cm with a 10-mm curved active-tip radiofrequency ablation needle, the needle was passed through the skin. The tip of the needle was maneuvered and directed towards the epiphyseal junction of each corresponding vertebra, starting on the right C4, ending on the right C7, passing through the C5 and C6. Once the tip of the needle was at the vicinity of the medial branch and at the middle of the trapezoid on the lateral view, the stylette of each needle was then removed. After negative aspiration of blood or CSF and confirmation on AP, oblique as well as lateral view, radiofrequency ablation probe was then inserted at each level. Impedance was then recorded at C4 to be 315 ohm, at C5 to be 310 ohm, at C6 to be 304 ohm, and at C7 to be 304 ohm. Motor-evoked potential was then initiated to 1.5 volt without any motor response to each corresponding level or the right arm. The probe was then removed intact and a total of 4 mL of preservative-free 1% lidocaine was injected in divided doses between those four levels after negative aspiration of blood or CSF. After repeated confirmation, the radiofrequency ablation probe was then inserted and after repeated confirmation on AP, oblique as well as lateral view, radiofrequency ablation was then initiated to approximately 80 degree Celsius for 60 second at each level. Once concluded, the probe was then removed intact. A total of 4 mL of preservative-free 0.25% Marcaine with 40 mg of Depo-Medrol was injected in divided doses between those four levels. The needles were then removed intact. The patient experienced no sign or symptoms of intrathecal or intravascular injection. The patient experienced no paresthesia. The procedure was completed without any apparent difficulty or any complications. The patient appeared to tolerate it well. Sensory as well as motor exam was unchanged from prior to the procedure. ASSESSMENT AND PLAN: This is a 61-year-old female with cervical spondylosis, cervical degenerative disc disease, cervical facet arthropathy status post right-sided cervical radiofrequency ablation of the medial branch at C4? C7, patient will continue current medications, patient will follow in approximately 2 weeks for reevaluation
== END 2022-01-11 08:58 | disposition home or self-care (01) ==
LOC: SDC 05:50 → AC 05:50
PROVIDERS: PCP Family Medicine; Referring Provider Anesthesiology Pain Medicine; Visit Provider Anesthesiology Pain Medicine
PROC: (CPT 64633; principal; 2022-01-11 07:25)
DX: M47.812 Spondylosis without myelopathy or radiculopathy, cervical region (principal); E11.9 Type 2 diabetes mellitus without complications; M50.30 Other cervical disc degeneration, unspecified cervical region; K21.9 Gastro-esophageal reflux disease without esophagitis; Z86.73 Personal history of transient ischemic attack (TIA), and cerebral infarction without residual deficits
CPT/HCPCS: 64633; 64634; 72040; 76000; 82962; J7120; J2405

== ENCOUNTER → 2022-01-20 | Outpatient (CLI) | payer MEDICAID, SELFPAY ==
--- NOTE | 2022-01-20 14:08 | BI_ITS ---
MAMMOGRAPHY - BILATERAL SCREENING REASON FOR EXAM: Female, 61 years old. Routine annual screening examination. PERTINENT HISTORY: Non-contributory. TECHNIQUE: Digital bilateral breast mert (3D mammographic acquisition) in the CC and MLO projections. 2-D mediolateral oblique (MLO) and craniocaudad (CC) views of both breasts were obtained. CAD: Full Field Digital Mammography with Computer Added Detection was performed. COMPARISON: Comparison is made with prior study dated 10/20/2020 and 10/18/2019. FINDINGS: Breast Composition: The breasts are heterogeneously dense, which may obscure small masses. There are no dominant masses or suspicious calcifications. No other significant abnormalities are identified. There has been no significant change since the prior study. BI/SCRN MAMM (CAD)W/MERT BILAT IMPRESSION: Stable bilateral screening mammogram. Yearly follow-up mammogram recommended. (A) ASSESSMENT CATEGORY: BIRADS Category 1: Negative. A letter regarding these results will be sent to the patient by the facility within 30 days. Approximately 10% of breast cancers are not detected by mammography. A normal mammogram should not delay biopsy of a clinically suspicious abnormality. [id number] Electronically Signed: Anil Higuera MD at 14:53 EDT ,
== END | disposition home or self-care (01) ==
LOC: OPBI 14:07
PROVIDERS: PCP Family Medicine; Visit Provider Family Medicine
DX: Z12.31 Encounter for screening mammogram for malignant neoplasm of breast (principal)
CPT/HCPCS: 77063; 77067

== ENCOUNTER 2022-04-12 12:16 | Day surgery (SDC) | payer MEDICAID, SELFPAY ==
[2022-04-12] VITALS (8 sets, daily range): BP systolic 123–137; BP diastolic 67–87; PULSE 86–102; RESP 16–18; TEMP 36.3–37.1; O2SAT 98–100; BMI 25.0
[2022-04-12] MEDS: Lactated Ringers 1,000 ML 15 ML IV (13:00)
[2022-04-12 13:25] LABS: Bedside Glucose 118 mg/dL (74-106)
--- NOTE | 2022-04-12 13:54 | RAD_ITS ---
EXAM: FL FLUOROSCOPY > 1 HOUR CLINICAL INDICATION: MEDIAL BRANCH NERVE BLOCK,T6-T8, BILAT TECHNIQUE: Fluoroscopic images performed in multiple projections. Fluoroscopic guidance was provided by a physician. This report was created using [employer] report [email or web address] technology. COMPARISON: None. FINDINGS: OTHER FINDINGS: A total of 18.6 seconds of fluoroscopy time was utilized. Seven fluoroscopically guided spot images were obtained. Electronically Signed: Shaheed Saini MD at 0:25 EST , RAD/Thoracic Spine Min 4 Views IMPRESSION: undefined
[2022-04-12] MEDS: Lidocaine 1% (5 ml sdv) 5 ML Vial (13:56)
[2022-04-12] MEDS: MethylPREDNISolone Acetate 80 MG/ML Vial (13:57)
--- NOTE | 2022-04-12 14:06 | PCM.OPRPT ---
Report of Operation Date of Procedure: 04/12/22 Description of Surgical Findings:: PREOPERATIVE DIAGNOSIS: Thoracic spondylosis, thoracic degenerative disc disease, thoracic facet arthropathy POSTOPERATIVE DIAGNOSIS: Thoracic spondylosis, thoracic degenerative disc disease, thoracic facet arthropathy PROCEDURE PERFORMED: Bilateral thoracic medial branch block at T6, T7, and T8. ANESTHESIA: MAC. BLOOD LOSS: Minimal. COMPLICATIONS: None. DESCRIPTION OF PROCEDURE: History and physical of today was reviewed. Risks and benefits of the procedure were explained. The patient understood and agreed to proceed. Informed consent was obtained. IV inserted per routine protocol. The patient was taken to the operating room and placed in the prone position with a pillow positioned underneath the chest. The mid back area was prepped and draped in a sterile fashion using iodine x3. Under fluoroscopy guidance on AP view, the T5 through T8 vertebral bodies were visualized. The skin and subcutaneous tissue was anesthetized with approximately 5 mL of 1% lidocaine using a 25-gauge regular needle. Under direct visualization on fluoroscopy, at approximately 15-degree angle, starting on the right T6 ending on the left T6 passing through the T8 and T7 bilaterally, using a 22-gauge 3-1/2-inch spinal needle, the needle was passed through the skin. The tip of the needle was maneuvered and directed towards the epiphyseal junction of each corresponding vertebra. Once the tip of the needle was at the vicinity of the medial branch and in contact with the bone, the needle was pulled approximately 2 mm off the bone. After negative aspiration for blood or CSF and confirmation on AP as well as oblique view and lateral view, a total of 6 mL of preservative-free 0.25% Marcaine with 80 mg of Depo-Medrol was injected in divided doses between those four levels. The needles were then removed intact. The patient experienced no sign or symptoms of intrathecal or intravascular injection. The patient experienced no paresthesia. The procedure was completed without any apparent difficulty or any complications. The patient appeared to tolerate it well. ASSESSMENT AND PLAN: This is a 61-year-old female with thoracic spondylosis, thoracic degenerative disc disease, thoracic facet arthropathy status post bilateral thoracic medial branch block at T6-T8, patient will continue her current medications, patient will follow in approximately 1 to 2 weeks for reevaluation.
== END 2022-04-12 15:10 | disposition home or self-care (01) ==
LOC: SDC 12:19 → AC 12:21
PROVIDERS: PCP Family Medicine; Referring Provider Anesthesiology Pain Medicine; Visit Provider Anesthesiology Pain Medicine
PROC: 3E0S3BZ Introduction of Anesthetic Agent into Epidural Space, Percutaneous Approach (ICD-10-PCS; CPT 62322; principal; 2022-04-12 13:40)
DX: M47.814 Spondylosis without myelopathy or radiculopathy, thoracic region (principal); E11.9 Type 2 diabetes mellitus without complications; M51.34 Other intervertebral disc degeneration, thoracic region; K21.9 Gastro-esophageal reflux disease without esophagitis; E78.00 Pure hypercholesterolemia, unspecified; Z86.73 Personal history of transient ischemic attack (TIA), and cerebral infarction without residual deficits
CPT/HCPCS: 64491; 64490; 72074; 82962; J7120

== ENCOUNTER → 2022-05-11 | Outpatient (CLI) | payer MEDICAID, SELFPAY ==
[2022-05-11 10:43] LABS: Hematocrit 44.6 % (37-47); Hemoglobin 14.6 g/dL (12.0-15.0); Mean Corp Hgb Conc 32.7 g/dL (32-36); Mean Corpuscular Hgb 31.9 pg (27.0-32.0); Mean Corpuscular Volume 97.4 fL (81-99); Mean Platelet Vol. 8.7 fl (6.2-12.0); Platelet Count 287 K/mm3 (150-450); RBC Distribution Width CV 13.4 % (11.6-14.6); RBC Distribution Width SD 47.4 fl (35.1-43.9); Red Blood Count 4.58 M/mm3 (4.2-5.4); White Blood Count 6.6 K/mm3 (4.4-11.0)
[2022-05-11 11:09] LABS: Anion Gap 5 (5-15); BUN 12 mg/dL (7-18); BUN/Creat Ratio 14.4 RATIO (10-20); Chloride 103 mmol/L (98-107); Cholesterol 159 mg/dL (200); Creatinine, Serum 0.83 mg/dL (0.55-1.02); EST Glomerular Filtration Rate 73 mL/min (>60); Est Glom Filt Rate - Afr Amer 89 mL/min (>60); Glucose 119 mg/dL (74-106); High Density Lipoprotein 84 mg/dL; Sodium Level 140 mmol/L (136-145); Triglycerides 140 mg/dL; Very Low Density Lipoprotein 28 mg/dL (5-40)
== END | disposition home or self-care (01) ==
LOC: LAB 10:18
PROVIDERS: PCP Family Medicine; Referring Provider Family Medicine; Visit Provider Family Medicine
DX: E11.69 Type 2 diabetes mellitus with other specified complication (principal); K22.70 Barrett's esophagus without dysplasia
CPT/HCPCS: 36415; 80048; 80061; 85027

== ENCOUNTER → 2022-05-31 | Outpatient (CLI) | payer MEDICAID, SELFPAY ==
[2022-05-31 14:08] VITALS: BP 132/80; PULSE 107; RESP 16; TEMP 36.4; BMI 25.0
[2022-05-31] MEDS: 0.9% NaCl Peripheral Flush Adult/Peds IV (14:21)
[2022-05-31] MEDS: Zoledronic Acid 5 MG 100 ML 300 MG IV (14:24)
== END | disposition home or self-care (01) ==
LOC: MEDOUTP 14:03
PROVIDERS: PCP Family Medicine; Referring Provider Family Medicine; Visit Provider Family Medicine
DX: M81.0 Age-related osteoporosis without current pathological fracture (principal)
CPT/HCPCS: 96365; A4216; J3489

== ENCOUNTER → 2022-07-19 | Outpatient (CLI) | payer MEDICAID, SELFPAY | END | disposition home or self-care (01) | PROVIDERS: PCP Family Medicine; Referring Provider Family Medicine; Visit Provider Family Medicine | DX: Z00.00 Encounter for general adult medical examination without abnormal findings (principal) ==

== ENCOUNTER 2022-07-26 06:30 | Day surgery (SDC) | payer MEDICAID, SELFPAY ==
[2022-07-26 06:55] VITALS: BP 118/69; PULSE 92; RESP 18; TEMP 35.9; O2SAT 99; BMI 25.6
[2022-07-26] MEDS: Lactated Ringers 1,000 ML 15 ML IV (07:06)
[2022-07-26 07:35] LABS: Bedside Glucose 101 mg/dL (74-106)
--- NOTE | 2022-07-26 08:00 | RAD_ITS ---
STUDY: X-RAY - CERVICAL SPINE REASON FOR EXAM: Female, 61 years old. RADIO FREQ ABLATION C4-C7, LEFT TECHNIQUE: 10 view(s) of the cervical spine were obtained. COMPARISON: None FINDINGS: Intraoperative imaging provided for left C4-C7 radiofrequency ablation. RAD/Cerv Spine 2 or 3 Views IMPRESSION: Intraoperative imaging provided for left C4-C7 radiofrequency ablation. Electronically Signed: Anil Higuera MD at 9:36 EDT ,
[2022-07-26] MEDS: MethylPREDNISolone Acetate 40 MG/ML Vial IM (08:14)
[2022-07-26] MEDS: Lidocaine 1% (30 ml sdv) 30 ML Vial (08:15)
--- NOTE | 2022-07-26 08:22 | PCM.OPRPT ---
Report of Operation Date of Procedure: 07/26/22 Description of Surgical Findings:: PREOPERATIVE DIAGNOSIS: Cervical spondylosis, cervical degenerative disc disease, cervical facet arthropathy POSTOPERATIVE DIAGNOSIS: Cervical spondylosis, cervical degenerative disc disease, cervical facet arthropathy PROCEDURE PERFORMED: Left-sided cervical radiofrequency ablation of the medial branch at C4, C5, C6, and C7. ANESTHESIA: MAC. BLOOD LOSS: Minimal. COMPLICATIONS: None. DESCRIPTION OF PROCEDURE: History and physical of today was reviewed. Risks and benefits of the procedure were explained. The patient understood and agreed to proceed. Informed consent was obtained. IV inserted per routine protocol. The patient was taken to the operating room and placed in the prone position with a pillow positioned underneath the chest. The neck area was prepped and draped in a sterile fashion using iodine x3. Under fluoroscopy guidance on an AP view, the C4 through C7 vertebral bodies were visualized. The skin and subcutaneous tissue was anesthetized with approximately 10 mL of 1% lidocaine using a 25-gauge regular needle. Under direct visualization on fluoroscopy on a lateral view, using a 21-gauge 10-cm with a 10-mm curved active-tip radiofrequency ablation needle, the needle was passed through the skin. The tip of the needle was maneuvered and directed towards the epiphyseal junction of each corresponding vertebra, starting on the left C4, ending on the left C7, passing through the C5 and C6. Once the tip of the needle was at the vicinity of the medial branch and at the middle of the trapezoid on the lateral view, the stylette of each needle was then removed. After negative aspiration of blood or CSF and confirmation on AP, oblique as well as lateral view, radiofrequency ablation probe was then inserted at each level. Impedance was then recorded at C4 to be 291 ohm, at C5 to be 277 ohm, at C6 to be 307 ohm, and at C7 to be 337 ohm. Motor-evoked potential was then initiated to 1.5 volt without any motor response to each corresponding level or the left arm. The probe was then removed intact and a total of 4 mL of preservative-free 1% lidocaine was injected in divided doses between those four levels after negative aspiration of blood or CSF. After repeated confirmation, the radiofrequency ablation probe was then inserted and after repeated confirmation on AP, oblique as well as lateral view, radiofrequency ablation was then initiated to approximately 80 degree Celsius for 60 second at each level. Once concluded, the probe was then removed intact. A total of 4 mL of preservative-free 0.25% Marcaine with 40 mg of Depo-Medrol was injected in divided doses between those four levels. The needles were then removed intact. The patient experienced no sign or symptoms of intrathecal or intravascular injection. The patient experienced no paresthesia. The procedure was completed without any apparent difficulty or any complications. The patient appeared to tolerate it well. Sensory as well as motor exam was unchanged from prior to the procedure. ASSESSMENT AND PLAN: This is a 61-year-old female with cervical spondylosis, cervical degenerative disc disease, cervical facet arthropathy status post left-sided cervical radiofrequency ablation of the medial branch C4-C7, patient will continue her current medications, patient will follow in approximately 2 weeks for reevaluation.
[2022-07-26 08:28] VITALS: BP 118/65; BP 118/68; PULSE 82; RESP 18; TEMP 35.9; O2SAT 96
[2022-07-26 08:30] VITALS: BP 103/61; BP 118/68; PULSE 86; RESP 20; O2SAT 100
[2022-07-26 08:35] VITALS: BP 102/69; BP 118/68; PULSE 80; RESP 18; O2SAT 99
[2022-07-26 08:45] VITALS: BP 111/67; BP 118/68; PULSE 83; RESP 20; TEMP 36.8; O2SAT 97
[2022-07-26 08:56] VITALS: BP 118/68
== END 2022-07-26 09:17 | disposition home or self-care (01) ==
LOC: SDC 06:32 → AC 06:32
PROVIDERS: PCP Family Medicine; Referring Provider Anesthesiology Pain Medicine; Visit Provider Anesthesiology Pain Medicine
PROC: (CPT 64633; principal; 2022-07-26 07:55)
DX: M47.812 Spondylosis without myelopathy or radiculopathy, cervical region (principal); M50.30 Other cervical disc degeneration, unspecified cervical region; I69.351 Hemiplegia and hemiparesis following cerebral infarction affecting right dominant side; E11.9 Type 2 diabetes mellitus without complications; E78.00 Pure hypercholesterolemia, unspecified; E07.9 Disorder of thyroid, unspecified; K21.9 Gastro-esophageal reflux disease without esophagitis; Z79.84 Long term (current) use of oral hypoglycemic drugs; Z79.890 Hormone replacement therapy; Z79.899 Other long term (current) drug therapy
CPT/HCPCS: 64633; 64634; 01992; 72040; 76000; 82962; J7120

== ENCOUNTER → 2023-01-25 | Outpatient (CLI) | payer BC, SELFPAY ==
--- NOTE | 2023-01-25 14:42 | BI_ITS ---
MAMMOGRAPHY - BILATERAL SCREENING REASON FOR EXAM: Female, 62 years old. Routine annual screening examination. PERTINENT HISTORY: Non-contributory. TECHNIQUE: Digital bilateral breast mert (3D mammographic acquisition) in the CC and MLO projections. 2-D mediolateral oblique (MLO) and craniocaudad (CC) views of both breasts were obtained. CAD: Full Field Digital Mammography with Computer Added Detection was performed. COMPARISON: Comparison is made with prior study January 20, 2022 and October 20, 2020. FINDINGS: Breast Composition: The breasts are heterogeneously dense, which may obscure small masses. There are no dominant masses or suspicious calcifications. No other significant abnormalities are identified. There has been no significant change since the prior study. BI/SCRN MAMM (CAD)W/MERT BILAT IMPRESSION: Stable bilateral screening mammogram. Yearly follow-up mammogram recommended. (A) ASSESSMENT CATEGORY: BIRADS Category 1: Negative. A letter regarding these results will be sent to the patient by the facility within 30 days. Approximately 10% of breast cancers are not detected by mammography. A normal mammogram should not delay biopsy of a clinically suspicious abnormality. [id number] Electronically Signed: Anil Higuera MD at 8:41 EDT ,
--- NOTE | 2023-01-25 14:57 | BD_ITS ---
STUDY: DUAL ENERGY X-RAY ABSORPTIOMETRY / DXA REASON FOR EXAM: Female, 62 years old. [id number] TECHNIQUE: Bone Mineral Density (BMD) measurements of lumbar spine and bilateral hips were obtained. COMPARISON: Comparison is made with prior study dated October 18, 2019. FINDINGS: Lumbar Spine (L1-L4): g/cm2 (0.876) / T-score (-1.6) / Z-score (0.2) Findings are suggestive of osteopenia with a moderate fracture risk. Left Femur Total: g/cm2 (0.681) / T-score (-2.1) / Z-score (-1.0) Left Femoral Neck: g/cm2 (0.5-1) / T-score (-3.0) / Z-score (-1.5) Right Femur Total: g/cm2 (0.713) / T-score (-1.9) / Z-score (-0.7) Right Femoral Neck: g/cm2 (0.527) / T-score (-2.9) / Z-score (-1.4) The T-Scores on the most recent prior examination were: Lumbar Spine (L1-L4): There has been improvement of bone density since the previous examination. Left Femur Total: which represents an improvement of 0.3%. Right Femur Total: which represents an improvement of 4.1%. BD/Dexa Bone Density Study IMPRESSION: The patient is considered osteoporotic as outlined below according to World [place] Organization (WHO) criteria with a high fracture risk. There has been improvement of bone density since the previous examination. Reference Information: The T-score is the number of standard deviations above or below the standard which is normal for young adults at their peak bone mineral density. The World Health Organization (WHO) interprets the T-scores as follows: Above -1 Normal bone density Between -1 and -2.5 Osteopenia Equal to / or below -2.5 Osteoporosis As a practical clinical guideline, osteopenia may be graded as follows: Mild -1 through -1.5 Moderate -1.6 through -2.0 Severe -2.1 through -2.4 The Z-score is the number of standard deviations above or below age-matched controls. A Z-score of less than -1.5 would be considered abnormal. References: 1. NIH Osteoporosis and Related Bone Diseases www osteo.org 2. International Society for Clinical Densitometry www iscd.org 3. National Osteoporosis Foundation www nof.org Electronically Signed: Anil Higuera MD at 13:57 EDT ,
== END | disposition home or self-care (01) ==
LOC: OPBD 14:40
PROVIDERS: PCP Family Medicine; Referring Provider Family Medicine; Visit Provider Family Medicine
DX: Z12.31 Encounter for screening mammogram for malignant neoplasm of breast (principal); Z78.0 Asymptomatic menopausal state
CPT/HCPCS: 77063; 77067; 77080

== ENCOUNTER → 2023-03-25 | Outpatient (CLI) | payer BC, SELFPAY ==
[2023-03-25 11:19] LABS: Hematocrit 44.1 % (37-47); Hemoglobin 14.3 g/dL (12.0-15.0); Mean Corp Hgb Conc 32.4 g/dL (32-36); Mean Corpuscular Hgb 31.6 pg (27.0-32.0); Mean Corpuscular Volume 97.6 fL (81-99); Mean Platelet Vol. 8.7 fl (6.2-12.0); Platelet Count 277 K/mm3 (150-450); RBC Distribution Width CV 13.2 % (11.6-14.6); RBC Distribution Width SD 47.1 fl (35.1-43.9); Red Blood Count 4.52 M/mm3 (4.2-5.4); White Blood Count 6.4 K/mm3 (4.4-11.0)
--- OUTSIDE RECORDS SUMMARY | 2023-03-25 11:20 | XMS RPT_ITS | CCD ---
Author Name Unknown Address [address] [place] [address] Organization [facility] Care Team Providers Care Account Receivable Associate Name Role Phone LEROY DEWEY Unavailable Unavailable *SELF, REFERRED Unavailable Unavailable Steff Fountain Unavailable Unavailable PROVIDER, UNKNOWN Admitting Unavailable PROVIDER, UNKNOWN Attending Unavailable GISELLA ADHIKARI, DR ARTIS Primary Care Physician GISELLA ADHIKARI., DR. ARTIS Primary Care Unav ailable KEYS ENERGY PROJECT MANAGER (RxC2)MANDIE Attending Unava ilable Steff Fountain MD Primary Care Provider RICKY AMIN Attending Unavailable STEFF FOUNTAIN Primary Care Unavailabl e RICKY AMIN Attending Unavailable STEFF FOUNTAIN Primary Care Unavailabl e Steff Fountain Primary Care Provider Steff Fountain Primary Care Provider Steff Fountain Primary Care Provider MANDIE HUNT Attending Unavailable STEFF FOUNTAIN Primary Care Unavailable MANDIE HUNT Attending Unavailable STEFF FOUNTAIN Primary Care Unavailable MANDIE HUNT Attending Unavailable STEFF FOUNTAIN Primary Care Unavailable MANDIE HUNT Referring Unavailable MANDIE HUNT Attending Unavailable STEFF FOUNTAIN Primary Care Unavailable Allergies Allergy Classification Reported Allergen(s) Allergy Type Date of Onset Reaction(s) Facility (1 source) Aminoglycosides allergy Drug [facility] (1 source) Prednisone Drug allergy [facility] (19 sources) Prochlorperazine; Translations: [prochlorperazine] Drug Allergy 11-05-[address] [place] [address] (20 sources) Streptomycin; Translations: [streptomycin] Drug Allergy 11-05-19 06 [facility] (1 source) varenicline; Translations: [varenicline] Drug Allergy Clouded consciousness (finding) [facility] Medications Current Medications Medication Drug Class(es) Dates Sig (Normalized) Sig (Original) acetaminophen 325 mg oral tablet (1 source) Start: 02-06-2019 Tylenol 325 mg oral tablet Dose : 650 mg = 2 tab(s), Oral, q4hr, PRN for pain, 0 Refill(s) Start Date: 02/06/19 Status: Ordered Acetaminophen / HYDROcodone (1 source) Opioid Agonist Start: 09-03-2010 take 1 tablet by mouth every four hours as needed for pain Vicodin 5 mg-500 mg oral tablet Dose = 1 tab(s), Oral, q4h, PRN for pain, tab(s), 0 Refill(s) Start Date: 09/03/10 Status: Ordered acetaminophen 325 mg / oxyCODONE hydrochloride 5 mg oral tablet (16 sources) Opioid Agonist Start: 07-28-2022 oxyCODONE-acetami nophen (Percocet) 5-325 MG tablet Completed/Discontinued Medications Medication Drug Class(es) Dates Sig (Normalized) Sig (Original) onabotulinumtoxina 200 unt injection (20 sources) Acetylcholine Release Inhibitor Start: 3 End: 3 onabotulinumtoxinA (Botox) injection 200 Units Problems Problem Classification Problem Date Documented Date Episodic/Chronic Aortic; peripheral; and visceral artery aneurysms (1 source) Aneurysm 02-06-2019 Chronic Disorders of lipid metabolism (1 source) Hypercholesterolemia 02-06-2019 Chronic Essential hypertension (1 source) Hypertensive disorder 02-06-2019 Chronic Headache; including migraine (10 sources) Transformed migraine; 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] Onset: 3 02-06-2019 Chronic Menopausal disorders (2 sources) Menopausal symptom; Translations: [Menopausal and female climacteric states] Onset: 3 05-24-2012 Chronic Other and ill-defined cerebrovascular disease (2 sources) Cerebral arterial aneurysm; Translations: [Cerebral aneurysm, nonruptured] Onset: 3 05-24-2012 Chronic Other circulatory disease (1 source) History of transient ischemic attack 02-06-2019 Episodic Other female genital disorders (1 source) Labial cyst; Translations: [Vulvar cyst] Episodic Results Test Name Value Interpretation Reference Range Facil ity Vital Signs Date Time Vital Sign Value Performing Clinician [facility] 01-19-2023 11:18-0400 Body mass index (BMI) [Ratio] 26.34 kg/m2 Mandie Sylvie RAMP SERVICE AGENT - ENERGY PROJECT MANAGER Work Phone: [facility] 01-19-2023 11:18-0400 Body weight 65.32 kg Mandie Sylvie RAMP SERVICE AGENT - ENERGY PROJECT MANAGER Work Phone: [facility] 01-19-2023 11:18-0400 Diastolic blood pressure 79 mm[Hg] Mandie Hunt RAMP SERVICE AGENT - ENERGY PROJECT MANAGER Work Phone: [facility] 01-19-2023 11:18-0400 Heart rate 96 /min Mandie Sylvie RAMP SERVICE AGENT - ENERGY PROJECT MANAGER Work Phone: [facility] 01-19-2023 11:18-0400 Systolic blood pressure 144 mm[Hg] Mandie Sylvie RAMP SERVICE AGENT - ENERGY PROJECT MANAGER Work Phone: [facility] 10-27-2022 13:59-0400 Body height 157.5 cm Mandie Sylvie RAMP SERVICE AGENT - ENERGY PROJECT MANAGER Work Phone: [facility] 10-27-2022 13:59-0400 Body mass index (BMI) [Ratio] 26.74 kg/m2 Mandie Sylvie RAMP SERVICE AGENT - ENERGY PROJECT MANAGER Work Phone: [facility] 10-27-2022 13:59-0400 Body weight 66.32 kg Mandie Sylvie RAMP SERVICE AGENT - ENERGY PROJECT MANAGER Work Phone: [facility] 10-27-2022 13:59-0400 Diastolic blood pressure 71 mm[Hg] Mandie Sylvie RAMP SERVICE AGENT - ENERGY PROJECT MANAGER Work Phone: [facility] 10-27-2022 13:59-0400 Heart rate 66 /min Mandie Hunt RAMP SERVICE AGENT - ENERGY PROJECT MANAGER Work Phone: [facility] 10-27-2022 13:59-0400 Systolic blood pressure 124 mm[Hg] Mandie Hunt RAMP SERVICE AGENT - ENERGY PROJECT MANAGER Work Phone: [facility] 08-04-2022 13:54-0400 Body mass index (BMI) [Ratio] 25.42 kg/m2 Mandie Hunt RAMP SERVICE AGENT - ENERGY PROJECT MANAGER Work Phone: [facility] 08-04-2022 13:54-0400 Body weight 63.05 kg Mandie Hunt RAMP SERVICE AGENT - ENERGY PROJECT MANAGER Work Phone: [facility] 08-04-2022 13:54-0400 Diastolic blood pressure 83 mm[Hg] Mandie Hunt RAMP SERVICE AGENT - ENERGY PROJECT MANAGER Work Phone: [facility] 08-04-2022 13:54-0400 Heart rate 98 /min Mandie Hunt RAMP SERVICE AGENT - ENERGY PROJECT MANAGER Work Phone: [facility] 08-04-2022 13:54-0400 Systolic blood pressure 132 mm[Hg] Mandie Hunt RAMP SERVICE AGENT - ENERGY PROJECT MANAGER Work Phone: [facility] 05-24-2022 14:13-0500 Body weight 62.6 kg Ricky Amin MD Work Phone: [facility] 05-24-2022 14:13-0500 Diastolic blood pressure 90 mm[Hg] Ricky Amin MD Work Phone: [facility] 05-24-2022 14:13-0500 Systolic blood pressure 120 mm[Hg] Ricky Amin MD Work Phone: [facility] 05-04-2022 13:10-0500 Body weight 61.69 kg Ricky Amin MD Work Phone: [facility] 05-04-2022 13:10-0500 Diastolic blood pressure 80 mm[Hg] Ricky Amin MD Work Phone: [facility] 05-04-2022 13:10-0500 Systolic blood pressure 120 mm[Hg] Ricky Amin MD Work Phone: [facility] Encounters Encounter Date Encounter Type Care Provider Facility Start: 02-08-2023 Refill Mandie chan RAMP SERVICE AGENT - ENERGY PROJECT MANAGER Work Phone: [facility] Start: 01-19-2023 End: 01-19-2023 ambulatory MANDIE HUNT [facility] Start: 01-19-2023 End: 01-19-2023 Office outpatient visit 10 minutes Mandie Hunt RAMP SERVICE AGENT - ENERGY PROJECT MANAGER Work Phone: [facility] Procedures Date Procedure Procedure Detail Performing Clinician Start: 01-20-2022 Mammography Mandie Smith RAMP SERVICE AGENT - ENERGY PROJECT MANAGER Work Phone: Start: 04-13-2018 Mammography Ricky hess MD Work Phone: Start: 03-15-2011 Craniotomy MANDIE BUCKLEY ND RAMP SERVICE AGENT-ENERGY PROJECT MANAGER Start: 09-11-2010 Craniotomy MANDIE MARCIO ND RAMP SERVICE AGENT-ENERGY PROJECT MANAGER Aneurysm (morphologi c abnormality) MANDIE KEYS RAMP SERVICE AGENT-ENERGY PROJECT MANAGER H/O: tubal ligation MANDIE KEYS RAMP SERVICE AGENT-ENERGY PROJECT MANAGER Tonsillectomy and adenoidectomy MANDIE KEYS RAMP SERVICE AGENT-ENERGY PROJECT MANAGER Plan of Treatment Date Care Activity Detail Author Start: 03-01-2024 DTaP/Tdap/Td Vaccines (2 - Td or Tdap) DTaP/Tdap/Td Vaccines (2 - Td or Tdap) [facility] Start: 04-15-2023 End: 04-15-2023 Patient encounter procedure 04/15/2023 12:30 PM EST Procedure Visit [facility] [address] [place] [id number] Mandie Hunt APRN - JOSE LUIS [address] [place] [address] [facility] Start: 04-10-2023 HPV TESTING HPV TESTING [facility] Start: 04-10-2023 PAP TESTING PAP TESTING [facility] Start: 01-20-2023 Screening for malignant neoplasm of breast Mammogram [facility] Start: 01-19-2023 End: 01-19-2023 Patient encounter procedure 01/19/2023 11:30 AM EDT Procedure Visit [facility] [address] [place] [address] Mandie Hunt APRN - ENERGY PROJECT MANAGER [address] [place] [address] [facility] Start: 11-26-2022 COVID-19 Vaccine ( season) COVID-19 Vaccine ( season) [facility] Start: 11-26-2022 Influenza vaccination Influenza Vaccine (#1) [facility] Start: 10-27-2022 End: 10-27-2022 Patient encounter procedure [facility] Start: 08-04-2022 End: 08-04-2022 Patient encounter procedure 08/04/2022 Procedure Visit Neurology Mandie Hunt, SULEMA - ENERGY PROJECT MANAGER [address] [place] [address] [facility] Start: 03-28-2022 DEPRESSION ASSESSMENT DEPRESSION ASSESSMENT [facility] Start: 04-13-2019 Mammography MAMMOGRAM [facility] Start: 2018 RSV Immunization aged 60 or older (1 - 1-dose 60+ series) RSV Immunization aged 60 or older (1 - 1-dose 60+ series) [facility] Start: 09-28-2015 DIABETES SCREEN DIABETES SCREEN [facility] Start: 2008 SHINGRIX VACCINE (1 of 2) SHINGRIX VACCINE (1 of 2) [facility] Start: 2008 Zoster Vaccines (1 of 2) Zoster Vaccines (1 of 2) [facility] Start: 10-03-2003 COLOGUARD (FIT-DNA) COLOGUARD (FIT-DNA) [facility] Start: 10-03-2003 Colonoscopy COLONOSCOPY [facility] Start: 10-03-2003 COLORECTAL CANCER SCREENING COLORECTAL CANCER SCREENING [facility] Start: 10-03-[address] COLONOGRAPHY [facility] Start: 10-03-2003 FECAL OCCULT BLOOD FECAL OCCULT BLOOD [facility] Start: 10-03-2003 LIPID SCREEN LIPID SCREEN [facility] Start: 10-03-2003 SIGMOIDOSCOPY SIGMOIDOSCOPY [facility] Start: 1988 Screening for malignant neoplasm of cervix [facility] Start: 10-03-1979 Screening for malignant neoplasm of cervix Pap Smear [facility] Start: 1977 Urine microalbumin profile DTAP,TDAP,TD (1 - Tdap) [facility] Start: 1976 Diabetes mellitus screening Diabetes Screening [facility] Start: 1976 HEPATITIS C SCREENING HEPATITIS C SCREENING [facility] Start: 1976 Hepatitis C screening Hepatitis C Screening [facility] Start: 1976 HIV SCREENING HIV SCREENING [facility] Start: 1970 Depression Screening Depression Screening [facility] Start: 10-03-1959 MMR Vaccines (1 of 1 - Standard series) MMR Vaccines (1 of 1 - Standard series) [facility] Start: 1958 Hepatitis B Vaccines (1 of 3 - 3-dose series) Hepatitis B Vaccines (1 of 3 - 3-dose series) [facility] Start: 1958 HIV screening HIV Screening [facility] Start: 1958 Lipid panel Lipid Panel [facility] Start: 1958 Screening for malignant neoplasm of colon [facility] Start: 1958 Thyroid stimulating hormone measurement TSH Level [facility] Immunizations Immunization Date Immunization Notes Care Provider Fa cili 01-13-2022 influenza virus vacc ine, unspecified formulation Mandie Hunt RAMP SERVICE AGENT - ENERGY PROJECT MANAGER Work Phone: [facility] 06-29-2021 Covid-19, Pfizer Gra y Top, Do Not Dilute, (Age 12 Y+), Im, L Mandie Hunt RAMP SERVICE AGENT - ENERGY PROJECT MANAGER Work Phone: [facility] Payers Date Payer Category Payer Unknown ALBA CORONADO S ALBA HAYES [id number] 2022-Present [address] [place] [address] Commercial [id number] 2022 Unknown [id number] 2022 Medicaid [id number] 2022 Medicaid [id number] 2019 Unknown [id number] 1960 Unknown [id number] 1960 Unknown [id number] Social History Date Type Detail Facility Start: 02-06-2019 Tobacco smoking status Heavy t obacco smoker (finding) [facility] Sex Assigned At Sex [facility] Start: 05-04-2022 [facility] End: 05-26-2021 History of tobacco use Current smoker [facility] End: 05-26-2021 History of tobacco use Cigarette Smoker [facility] Start: 05-04-2022 End: 01-19-2023 Cigarettes smoked current (pack per day) - Reported 1 [facility] Start: 05-04-2022 Tobacco use and exposure Smoke less tobacco non-user [facility] Start: 05-04-2022 End: 05-24-2022 Alcohol intake Current drinker of alcohol (finding) [facility] Start: 05-04-2022 Tobacco Comment Only had 4 cig arette in the past 3 months [facility] Start: 1960 Sex Assigned At Not on file [facility] Start: 05-12-2022 End: 01-19-2023 Alcohol intake Ex-drinker (finding) [facility] Start: 05-02-2022 End: 10-27-2022 Exposure to SARS-CoV-2 (event) Not sure [facility] Start: 08-04-2022 End: 01-19-2023 Tobacco use panel [facility] Clinical Notes 05-04-2022 to 01-19-2023 SULEMA Guerrero CNP - 01/19/2023 11:30 AM SULEMA Garcia CNP - 10/27/2022 2:00 PM EDTTelephone Encounter - SULEMA Guerrero CNP - 09/29/2022 1:00 PM EDT Note Date & Type Note Facility 01-19-2023 Note DEPARTMENT OF NEUROL OGY BOTOX PROCEDURE NOTE FOR HEADACHE Date: 01/19/2023 Patient: Nerissa Beach : 1960 Diagnosis: Intractable migraine without aura and without status migrainosus [G43.019] Procedure: Botulinum toxin injections for migraine Prior to procedure risks, benefits, alternatives, and potential side effects were reviewed with patient. Specifically reviewed possible risk of muscle weakness of face and neck, including but not limited to ptosis. All questions were answered, patient expressed understanding, verbal consent was given for procedure. Botox was injected with the parameters below: With the patient in sitting position, she received Botox injections in the neck and skull muscles. Patient receive the following doses: 1. R Frontalis 10 units 2. L Frontalis 10 units 3. R Check Out Clerk 10 units 4. L Check Out Clerk 10 units 5. R Temporalis 30 units 6. L Temporalis 30 units 7. R Occipitalis 30 units 8. L Occipitalis 30 units 9. R Trapezious 20 units 10.L Trapezious 20 units Total units injected 200 units. Units discarded 0 units. Comments: Botox is Buy and Bill [facility] [id number] [x] Pt tolerated procedure well. Pt advised to avoid exercise or strenuous physical activity for 24 hours. Post treatment expectations reviewed in detail. Mandie Hunt, SULEMA Arrington CNP [facility] 01-19-2023 History of Presen t illness Narrative DEPARTMENT OF NEUROLOGY BOTOX PROCEDURE NOTE FOR HEADACHE Date: 01/19/2023 Patient: Nerissa Beach : 1960 Diagnosis: Intractable migraine without aura and without status migrainosus [G43.019] Procedure: Botulinum toxin injections for migraine Prior to procedure risks, benefits, alternatives, and potential side effects were reviewed with patient. Specifically reviewed possible risk of muscle weakness of face and neck, including but not limited to ptosis. All questions were answered, patient expressed understanding, verbal consent was given for procedure. Botox was injected with the parameters below: With the patient in sitting position, she received Botox injections in the neck and skull muscles. Patient receive the following doses: 1. R Frontalis 10 units 2. L Frontalis 10 units 3. R Check Out Clerk 10 units 4. L Check Out Clerk 10 units 5. R Temporalis 30 units 6. L Temporalis 30 units 7. R Occipitalis 30 units 8. L Occipitalis 30 units 9. R Trapezious 20 units 10.L Trapezious 20 units Total units injected 200 units. Units discarded 0 units. Comments: Botox is Buy and Bill [facility] [phone] [x] Pt tolerated procedure well. Pt advised to avoid exercise or strenuous physical activity for 24 hours. Post treatment expectations reviewed in detail. SULEMA Guerrero CNP documented in this encounter [facility] 10-27-2022 Note DEPARTMENT OF NEUROL OGY BOTOX PROCEDURE NOTE FOR HEADACHE Date: 10/27/2022 Patient: Nerissa Beach : 1960 Diagnosis: Intractable migraine without aura and without status migrainosus [G43.019] Procedure: Botulinum toxin injections for migraine Prior to procedure risks, benefits, alternatives, and potential side effects were reviewed with patient. Specifically reviewed possible risk of muscle weakness of face and neck, including but not limited to ptosis. All questions were answered, patient expressed understanding, verbal consent was given for procedure. Botox was injected with the parameters below: With the patient in sitting position, she received Botox injections in the neck and skull muscles. Patient receive the following doses: 1. R Frontalis 10 units 2. L Frontalis 10 units 3. R Check Out Clerk 10 units 4. L Check Out Clerk 10 units 5. R Temporalis 30 units 6. L Temporalis 30 units 7. R Occipitalis 30 units 8. L Occipitalis 30 units 9. R Trapezious 20 units 10.L Trapezious 20 units Total units injected 200 units. Units discarded 0 units. Pt reports >50% reduction in migraines with Botox Comments: Botox is Buy and Bill [facility] [id number] [x] Pt tolerated procedure well. Pt advised to avoid exercise or strenuous physical activity for 24 hours. Post treatment expectations reviewed in detail. SULEMA Guerrero CNP [facility] 10-27-2022 History of Presen t illness Narrative DEPARTMENT OF NEUROLOGY BOTOX PROCEDURE NOTE FOR HEADACHE Date: 10/27/2022 Patient: Nerissa Beach : 1960 Diagnosis: Intractable migraine without aura and without status migrainosus [G43.019] Procedure: Botulinum toxin injections for migraine Prior to procedure risks, benefits, alternatives, and potential side effects were reviewed with patient. Specifically reviewed possible risk of muscle weakness of face and neck, including but not limited to ptosis. All questions were answered, patient expressed understanding, verbal consent was given for procedure. Botox was injected with the parameters below: With the patient in sitting position, she received Botox injections in the neck and skull muscles. Patient receive the following doses: 1. R Frontalis 10 units 2. L Frontalis 10 units 3. R Check Out Clerk 10 units 4. L Check Out Clerk 10 units 5. R Temporalis 30 units 6. L Temporalis 30 units 7. R Occipitalis 30 units 8. L Occipitalis 30 units 9. R Trapezious 20 units 10.L Trapezious 20 units Total units injected 200 units. Units discarded 0 units. Pt reports >50% reduction in migraines with Botox Comments: Botox is Buy and Bill [facility] [phone] [x] Pt tolerated procedure well. Pt advised to avoid exercise or strenuous physical activity for 24 hours. Post treatment expectations reviewed in detail. SULEMA Guerrero CNP documented in this encounter [facility] 09-29-2022 Telephone encount er Note Please see message below. Will Botox still be covered? Thank you [facility] 09-29-2022 Miscellaneous Notes Formattin g of this note might be different from the original. Please see message below. Will Botox still be covered? Thank you Name of caller: Nerissa Contact phone number: [phone] Relationship to Patient: patient Provider: JOSE LUIS Hunt Practice: [facility] Neurology Chief Complaint/Reason for Call: Nerissa called in to advise of her new insurance being [employer]. Nerissa has an appt with Bella to get her Botox, but she is not sure if that will be covered by [employer]. Nerissa also states that her insurance will not cover her pain management provider, Dr. Marcus Gracia, in [place]. Nerissa states that she get her Gabapentin and her nerve block injections in her back and neck from him. Nerissa states she is unsure what to do and would like to have her care continued with Dr. Varela and Veronica. Please contact Nerissa and advise. Best time of day caller can be reached: any Patient advised that office/PCP has 24-48 business hours to return their call: Yes documented in this encounter [facility] 09-29-2022 Telephone encount er Note Name of caller: Nerissa Contact phone number: [phone] Relationship to Patient: patient Provider: JOSE LUIS Hunt Practice: [facility] Neurology Chief Complaint/Reason for Call: Nerissa called in to advise of her new insurance being [employer]. Nerissa has an appt with Bella to get her Botox, but she is not sure if that will be covered by [employer]. Nerissa also states that her insurance will not cover her pain management provider, Dr. Marcus Gracia, in [place]. Nerissa states that she get her Gabapentin and her nerve block injections in her back and neck from him. Nerissa states she is unsure what to do and would like to have her care continued with Dr. Varela and Veronica. Please contact Nerissa and advise. Best time of day caller can be reached: any Patient advised that office/PCP has 24-48 business hours to return their call: Yes [facility] 09-10-2022 Telephone encount er Note Patient notified [facility] 09-10-2022 Miscellaneous Notes Formattin g of this note might be different from the original. Patient notified Please see message-[facility] Neurology group-please let pt know that I am having the Specialty Pharmacy look into this Name of caller: Nerissa Beach Contact phone number: [phone] Relationship to Patient: Patient Provider: Nichole Practice: [facility] Neuro Chief Complaint/Reason for Call: Patient is calling in to let the office know that her insurance is no longer going to cover her Nurtec, Qulipta, or Botox. Patient would like to see if there are any alternatives that can be called in or if there is anything the office can do. Patient also found out that her insurance is no longer going to cover her pain management doctor (Dr. Scott of [facility] - [phone]) and would like to know if Dr. Varela would be open to taking over her prescription of Neurontin or if she should check with her PCP. Please advise. Best time of day caller can be reached: Any Patient advised that office/PCP has 24-48 business hours to return their call: Yes documented in this encounter [facility] 09-10-2022 Telephone encount er Note Please see message-[facility] Neurology group-please let pt know that I am having the Specialty Pharmacy look into this [facility] 09-10-2022 Telephone encount er Note Name of caller: Nerissa Beach Contact phone number: [phone] Relationship to Patient: Patient Provider: Nichole Practice: [facility] Neuro Chief Complaint/Reason for Call: Patient is calling in to let the office know that her insurance is no longer going to cover her Nurtec, Qulipta, or Botox. Patient would like to see if there are any alternatives that can be called in or if there is anything the office can do. Patient also found out that her insurance is no longer going to cover her pain management doctor (Dr. Scott of [facility] - [phone]) and would like to know if Dr. Varela would be open to taking over her prescription of Neurontin or if she should check with her PCP. Please advise. Best time of day caller can be reached: Any Patient advised that office/PCP has 24-48 business hours to return their call: Yes [employer] 08-04-2022 Note DEPARTMENT OF NEUROL OGY BOTOX PROCEDURE NOTE FOR HEADACHE Date: 08/04/2022 Patient: Nerissa Beach : 1960 Diagnosis: Intractable migraine without aura and without status migrainosus [G43.019] Procedure: Botulinum toxin injections for migraine Prior to procedure risks, benefits, alternatives, and potential side effects were reviewed with patient. Specifically reviewed possible risk of muscle weakness of face and neck, including but not limited to ptosis. All questions were answered, patient expressed understanding, verbal consent was given for procedure. Botox was injected with the parameters below: With the patient in sitting position, she received Botox injections in the neck and skull muscles. Patient receive the following doses: 1. R Frontalis 10 units 2. L Frontalis 10 units 3. R Check Out Clerk 10 units 4. L Check Out Clerk 10 units 5. R Temporalis 30 units 6. L Temporalis 30 units 7. R Occipitalis 30 units 8. L Occipitalis 30 units 9. R Trapezious 20 units 10.L Trapezious 20 units Total units injected 200 units. Units discarded 0 units. She reports 3 migraines per month Nurtec is effective Comments: Botox is Patient Supplied [facility] [id number] [x] Pt tolerated procedure well. Pt advised to avoid exercise or strenuous physical activity for 24 hours. Post treatment expectations reviewed in detail. SULEMA Guerrero CNP [facility] 08-04-2022 History of Presen t illness Narrative DEPARTMENT OF NEUROLOGY BOTOX PROCEDURE NOTE FOR HEADACHE Date: 08/04/2022 Patient: Nerissa Beach : 1960 Diagnosis: Intractable migraine without aura and without status migrainosus [G43.019] Procedure: Botulinum toxin injections for migraine Prior to procedure risks, benefits, alternatives, and potential side effects were reviewed with patient. Specifically reviewed possible risk of muscle weakness of face and neck, including but not limited to ptosis. All questions were answered, patient expressed understanding, verbal consent was given for procedure. Botox was injected with the parameters below: With the patient in sitting position, she received Botox injections in the neck and skull muscles. Patient receive the following doses: 1. R Frontalis 10 units 2. L Frontalis 10 units 3. R Check Out Clerk 10 units 4. L Check Out Clerk 10 units 5. R Temporalis 30 units 6. L Temporalis 30 units 7. R Occipitalis 30 units 8. L Occipitalis 30 units 9. R Trapezious 20 units 10.L Trapezious 20 units Total units injected 200 units. Units discarded 0 units. She reports 3 migraines per month Nurtec is effective Comments: Botox is Patient Supplied [facility] [id number] [x] Pt tolerated procedure well. Pt advised to avoid exercise or strenuous physical activity for 24 hours. Post treatment expectations reviewed in detail. SULEMA Guerrero CNP documented in this encounter [facility] 08-03-2022 Telephone encount er Note Approved from 07/27/22 - 07/28/23 Authorization number : [id number] [facility] Work Phone: 08-03-2022 Miscellaneous Notes Formattin g of this note might be different from the original. Approved from 07/27/22 - 07/28/23 Authorization number : [id number] Can you provide the start and end date for the auth please Kadi said 200 units for Botox Is she approved for 200 units or 155 units? The patient has upcoming Botox appt on 08/04. The Botox will be supplied by us at [facility] and delivered to the MD office on 08/03. BOTOX IS PATIENT SUPPLIED!!! documented in this encounter [facility] 08-02-2022 Telephone encount er Note Can you provide the start and end date for the auth please [facility] 08-02-2022 Miscellaneous Notes Formattin g of this note might be different from the original. Can you provide the start and end date for the auth please Kadi said 200 units for Botox Is she approved for 200 units or 155 units? The patient has upcoming Botox appt on 08/04. The Botox will be supplied by us at [facility] and delivered to the MD office on 08/03. BOTOX IS PATIENT SUPPLIED!!! documented in this encounter [facility] 08-02-2022 Telephone encount er Note Kadi said 200 units for Botox [facility] 07-30-2022 Telephone encount er Note Is she approved for 200 units or 155 units? [facility] 07-30-2022 Telephone encount er Note The patient has upcoming Botox appt on 08/04. The Botox will be supplied by us at [facility] and delivered to the MD office on 08/03. BOTOX IS PATIENT SUPPLIED!!! [facility] 05-24-2022 Note HNO ID: [id number] Author: Ricky Amin MD Service: ? Author Type: Physician Type: Progress Notes Filed: 05/24/2022 2:38 PM Note Text: Nerissa is a 61 year old who presents for an annual gynecologic exam without complaints. Postmenopausal: Yes HRT use: No. Last Pap: 04/13/2018 normal HPV: 04/13/2018 negative History of abnormal pap: No Last mammogram: 2021 normal History of abnormal mammogram: No OB History T0 L0 SAB0 IAB0 Ectopic0 Multiple0 Live Births0 C.O.D. Clerk History LMP: 09/25/2005, Postmenopausal Age at Menarche: Age at First : Age at Menopause: C.O.D. Clerk History Comments: Sexual Activity: Never; No partner data on record Contraception: Tubal Ligation PAST MEDICAL HISTORY Diagnosis Date Anxiety Cerebral aneurysm multiple aneurysms Chronic head pain Chronic LBP Hypertension Thyroid disease Tobacco use PAST SURGICAL HISTORY Procedure Laterality Date LIG/TRNSXJ FLP TUBE ABDL/VAG APPR UNI/BI OTHER 02/25/2011 2 brain aneurysms R MCA clipped OTHER 08/26/2010 brain aneurysm L ICA clipping REMV CATARACT EXTRACAP,INSERT LENS TONSILLECTOMY AND ADENOIDECTOMY FAMILY HISTORY Problem Relation Age of Onset Heart Sister Diabetes Mother CAD Heart Father CAD Cancer Maternal Grandmother spine SOCIAL HISTORY Social History Tobacco Use Smoking status: Former Packs/day: 1.00 Types: Cigarettes Quit date: 05/26/2021 Years since quittin.9 Smokeless tobacco: Never Tobacco comments: Only had 4 cigarette in the past 3 months Substance Use Topics Alcohol use: Yes Drug use: No REVIEW OF SYSTEMS Abdomen: No abdominal pain, nausea, vomiting, diarrhea, or constipation. No bloating, early satiety, indigestion, or increased flatulence. Bladder: No dysuria, gross hematuria, urinary frequency, urinary urgency, or incontinence Breast: No breast lumps, nipple d/c, overlying skin changes, redness or skin retraction Allergies and current medication updated:Yes EXAM: BP 120/90 Wt 138 lb (62.6kg) LMP 09/25/2005 GENERAL: pleasant, female in no apparent distress HEENT: Normocephalic, atraumatic, mucus membranes moist, and no lesions NECK: Supple, full range of motion, no adenopathy, and thyroid normal DERMATOLOGY: Normal, without lesions, non-icteric, and non-hirsute BREAST: soft, non-tender, symmetric, no dominant mass, normal nipple-areolar complex, no lymphadenopathy, and no nipple discharge CHEST: Clear to auscultation, Normal inspiratory effort, Regular rate and rhythm, and No murmurs, clicks, rubs or gallops ABDOMEN: soft, non-tender, no masses, and Mild tenderness in epigastrium PELVIC: external genitalia normal, normal Bartholin's glands, urethra, Weed's glands, no vulvar lesions, no cervical lesions, good vaginal support, physiologic discharge present, normal appearing perineal body and perianal region BIMANUAL: uterus normal size, shape and consistency, midposition, no adnexal masses, and non-tender RECTOVAGINAL: deferred. NEURO: alert and oriented x3,exam grossly non-focal EXTREMITIES: normal ASSESSMENT/PLAN: 1) Health maintenance: Pap/HPV up to date. Mammogram up to date 2) Follow up one year or sooner as needed Ricky Amin MD [facility] 05-24-2022 History of Presen t illness Narrative Nerissa is a 61 year old who presents for an annual gynecologic exam without complaints. Postmenopausal: Yes HRT use: No. Last Pap: 04/13/2018 normal HPV: 04/13/2018 negative History of abnormal pap: No Last mammogram: 2021 normal History of abnormal mammogram: No OB History T0 L0 SAB0 IAB0 Ectopic0 Multiple0 Live Births0 C.O.D. Clerk History LMP: 09/25/2005, Postmenopausal Age at Menarche: Age at First : Age at Menopause: C.O.D. Clerk History Comments: Sexual Activity: Never; No partner data on record Contraception: Tubal Ligation PAST MEDICAL HISTORY Diagnosis Date Anxiety Cerebral aneurysm multiple aneurysms Chronic head pain Chronic LBP Hypertension Thyroid disease Tobacco use PAST SURGICAL HISTORY Procedure Laterality Date LIG/TRNSXJ FLP TUBE ABDL/VAG APPR UNI/BI OTHER 02/25/2011 2 brain aneurysms R MCA clipped OTHER 08/26/2010 brain aneurysm L ICA clipping REMV CATARACT EXTRACAP,INSERT LENS TONSILLECTOMY & ADENOIDECTOMY <AGE 12 FAMILY HISTORY Problem Relation Age of Onset Heart Sister Diabetes Mother CAD Heart Father CAD Cancer Maternal Grandmother spine SOCIAL HISTORY Social History Tobacco Use Smoking status: Former Packs/day: 1.00 Types: Cigarettes Quit date: 05/26/2021 Years since quittin.9 Smokeless tobacco: Never Tobacco comments: Only had 4 cigarette in the past 3 months Substance Use Topics Alcohol use: Yes Drug use: No REVIEW OF SYSTEMS Abdomen: No abdominal pain, nausea, vomiting, diarrhea, or constipation. No bloating, early satiety, indigestion, or increased flatulence. Bladder: No dysuria, gross hematuria, urinary frequency, urinary urgency, or incontinence Breast: No breast lumps, nipple d/c, overlying skin changes, redness or skin retraction Allergies and current medication updated:Yes EXAM: BP 120/90 Wt 138 lb (62.6kg) LMP 09/25/2005 GENERAL: pleasant, female in no apparent distress HEENT: Normocephalic, atraumatic, mucus membranes moist, and no lesions NECK: Supple, full range of motion, no adenopathy, and thyroid normal DERMATOLOGY: Normal, without lesions, non-icteric, and non-hirsute BREAST: soft, non-tender, symmetric, no dominant mass, normal nipple-areolar complex, no lymphadenopathy, and no nipple discharge CHEST: Clear to auscultation, Normal inspiratory effort, Regular rate and rhythm, and No murmurs, clicks, rubs or gallops ABDOMEN: soft, non-tender, no masses, and Mild tenderness in epigastrium PELVIC: external genitalia normal, normal Bartholin's glands, urethra, Weed's glands, no vulvar lesions, no cervical lesions, good vaginal support, physiologic discharge present, normal appearing perineal body and perianal region BIMANUAL: uterus normal size, shape and consistency, midposition, no adnexal masses, and non-tender RECTOVAGINAL: deferred. NEURO: alert and oriented x3,exam grossly non-focal EXTREMITIES: normal ASSESSMENT/PLAN: 1) Health maintenance: Pap/HPV up to date. Mammogram up to date 2) Follow up one year or sooner as needed Ricky Amin MD documented in this encounter [facility] 05-12-2022 Note DEPARTMENT OF NEUROL OGY BOTOX PROCEDURE NOTE FOR HEADACHE Date: 05/12/22 Patient: Nerissa Beach : 1960 Diagnosis: Intractable migraine without aura and without status migrainosus [G43.019] Procedure: Botulinum toxin injection for migraine Prior to procedure risks, benefits, alternatives, and potential side effects were reviewed with patient. Specifically reviewed possible risk of muscle weakness of face and neck, including but not limited to ptosis. All questions were answered, patient expressed understanding, verbal consent given for procedure. Botox was injected with the parameters below: With the patient in sitting position, she received Botox injections in the neck and skull muscles. Patient receive the following doses: 1. R Frontalis 10 units 2. L Frontalis 10 units 3. R Check Out Clerk 10 units 4. L Check Out Clerk 10 units 5. R Temporalis 20 units 6. L Temporalis 20 units 7. R Occipitalis 15 units 8. L Occipitalis 15 units 9. R Trapezious 22.5 units 10.L Trapezious 22.5 units Total units injected 155 units. Units discarded 45 units. Comments: Botox is Buy and Bill [facility] [phone] Pt reports that migraines are controlled with Botox and Qulipta. Nurtec is effective Denies side effects from medication [x] Pt tolerated procedure well. Pt advised to avoid exercise or strenuous physical activity for 24 hours. Post treatment expectations reviewed in detail. Mandie Keys APRN - [facility] 05-04-2022 Note HNO ID: [id number] Author: Ricky Amin MD Service: ? Author Type: Physician Type: Progress Notes Filed: 05/04/2022 4:27 PM Note Text: 61 year old White female presents today with a complaint of labial bumps . Patient noticed this recently after wiping. EGBUS: There is noted to be a small, 1 x 2 cm mass in the left labia that is consistent with a sebaceous cyst. There is no evidence of infection or irritation. Impression: Labial mass, benign. 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 Ricky Amin MD [facility] 05-04-2022 History of Presen t illness Narrative Images from the original note were not included. 61 year old White female presents today with a complaint of labial bumps . Patient noticed this recently after wiping. EGBUS: There is noted to be a small, 1 x 2 cm mass in the left labia that is consistent with a sebaceous cyst. There is no evidence of infection or irritation. Impression: Labial mass, benign. 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 Ricky Amin MD documented in this encounter [facility] Evaluation + Plan note No data available for this section [facility] Encounter for gynecological examination (general) (routine) without abnormal findings- Primary documented in this encounter [facility] note* Diagnosis Intractable migraine without aura and without status migrainosus- Primary documented in this encounter [facility] note* Diagnosis Intractable migraine without aura and without status migrainosus- Primary documented in this encounter [facility] note* Diagnosis Intractable migraine without aura and without status migrainosus- [facility] No data available for this section [facility] Progress note No data available for this section [facility] Summary Purpose Family History No Family History Records FoundNo Family History Records FoundNo Family History Records FoundNo Family History Records FoundNo Family History Records Found Advance Directives No Advanced Directives Records FoundNo Advanced Directives Records FoundNo Advanced Directives Records FoundNo Advanced Directives Records FoundNo Advanced Directives Records Found Reason for Referral Specialty Diagnoses / Procedures Referred By Contac t Referred To Contact Diagnoses Intractable migraine without aura and without status migrainosus Mandie Hunt, RAMP SERVICE AGENT - ENERGY PROJECT MANAGER [address] [place] [address] Referral ID Status Reason Start Date Expiration Date V isits Requested Visits Authorized [id number] Pending Review 08/04/2022 01/31/2023 1 1 Additional Source Comments INFORMATION SOURCE (unrecogn ized section and content) DATE CREATED AUTHOR AUTHOR'S ORGANIZ ATION 01/16/2020 [employer] DATE CREATED AUTHOR AUTHOR'S ORGANIZ ATION 12/25/2021 [facility] DATE CREATED AUTHOR AUTHOR'S ORGANIZ ATION 05/25/2022 [facility] DATE CREATED AUTHOR AUTHOR'S ORGANIZ ATION 03/18/2023 [facility] Care Team (unrecognized sect ion and content) Care Team Personnel Name: STEFF FOUNTAIN MD Member Role: Primary Care Physician Address: Address: [address] [place] [id number]- Care Team Related Persons Name: BRITTANY SCHWARZ Name: MANUEL ELIAS Source Comments (unrecognize d section and content) In the event this informatio n is protected by the Federal Confidentiality of Alcohol and Drug Abuse Patient Records regulations: The Federal rules restrict any use of the information to criminally investigate or prosecute any alcohol or drug abuse patient.[facility] the event this information is protected by the Federal Confidentiality of Alcohol and Drug Abuse Patient Records regulations: The Federal rules restrict any use of the information to criminally investigate or prosecute any alcohol or drug abuse patient.[facility] Reason for Visit (unrecogniz ed section and content) Specialty Diagnoses / Procedures Referred By Anil ibrahim Referred To Contact Diagnoses Intractable migraine without aura and without status migrainosus Mandie Hunt, RAMP SERVICE AGENT - ENERGY PROJECT MANAGER [address] [place] [address] Referral ID Status Reason Start Date Expiration Date V isits Requested Visits Authorized [id number] Pending Review 01/19/2023 07/18/2023 1 1 Reason Comments Botulinum Toxin Injection Referral ID Status Reason Start Date Expiration Date V isits Requested Visits Authorized [id number] Pending Review 10/27/2022 04/25/2023 1 1 Reason Comments New Patient Vaginal Problem Reason Comments C.O.D. Clerk Exam Reason Comments Med Refill Reason Onset Date Comments Botox patient supplied delivery 07/30/2022 Botox Patient Supplied Delivery Referral ID Status Reason Start Date Expiration Date V isits Requested Visits Authorized [id number] Pending Review 08/04/2022 01/31/2023 1 1 Reason Onset Date Comments Medication Problem 09/10/2022 Reason Onset Date Comments New Insurance 09/29/2022 Care Teams (unrecognized sec tion and content) Account Receivable Associate Relationship Specialty Start Date End Date Steff Fountain MD [address] [facility] [address] PCP - General Family Medicine 06/02/10 Account Receivable Associate Relationship Specialty Start Date End Date Steff Fountain [address] [place] [address] PCP - General 02/05/20 Account Receivable Associate Relationship Specialty Start Date End Date Steff Fountain [address] [facility] [address] [place] [address] PCP - General 02/05/20 Account Receivable Associate Relationship Specialty Start Date End Date Steff Fountain [address] [place] [address] PCP - General 02/05/20 Account Receivable Associate Relationship Specialty Start Date End Date Steff Fountain [address] [facility] [address] [place] [address] PCP - General 02/05/20 Account Receivable Associate Relationship Specialty Start Date End Date Steff Fountain [address] [facility] [address] [place] [address] PCP - General 02/05/20 Account Receivable Associate Relationship Specialty Start Date End Date Steff Fountain [address] [place] [address] PCP - General 02/05/20 Account Receivable Associate Relationship Specialty Start Date End Date Steff Fountain [address] [place] [address] PCP - General 02/05/20 Account Receivable Associate Relationship Specialty Start Date End Date Steff Fountain [address] [facility] [address] [place] [phone] PCP - General 02/05/20 Account Receivable Associate Relationship Specialty Start Date End Date Steff Fountain [address] [facility] [address] [place] [phone] PCP - General 02/05/20 Account Receivable Associate Relationship Specialty Start Date End Date Steff Fountain [address] [facility] [address] [place] [phone] [facility] General 02/05/20 FOR RECORDS PERTAINING TO PATIENTS WHO ARE OR HAVE BEEN ENROLLED IN A CHEMICAL DEPENDENCY/SUBSTANCEABUSE PROGRAM, SOME INFORMATION MAY BE OMITTED. This clinical summary was aggregated from multiple sources. Caution should be exercised in using it in the provision of clinical care. This summary normalizes information from multiple sources, and as a consequence, information in this document may materially change the coding, format and clinical context of patient data. In addition, data may be omitted in some cases. CLINICAL DECISIONS SHOULD BE BASED ON THE PRIMARY CLINICAL RECORDS. [facility] [employer] [facility]. provides no warranty or guarantee of the accuracy or completeness of information in this document.
[2023-03-25 11:23] LABS: Ionized Calcium 4.96 mg/dL (4.36-5.20)
[2023-03-25 11:54] LABS: ALB/GLOB Ratio 0.9 RATIO (0.9-2.4); AST(SGOT) 17 U/L (15-37); Alanine Aminotransfer ALT/SGPT 29 U/L (13-56); Albumin, Serum 3.4 g/dL (3.2-5.0); Alkaline Phosphatase 70 U/L (45-117); Anion Gap 7 (5-15); BUN 10 mg/dL (7-18); Calcium,Total 9.1 mg/dL (8.5-10.1); Chloride 104 mmol/L (98-107); Cholesterol 168 mg/dL (200); Creatinine, Serum 0.83 mg/dL (0.55-1.02); EST Glomerular Filtration Rate 74 mL/min (>60); Est Glom Filt Rate - Afr Amer 89 mL/min (>60); Globulin 3.8 g/dL (2.2-4.2); Glucose 120 mg/dL (74-106); High Density Lipoprotein 82 mg/dL; Magnesium 1.8 mg/dL (1.6-2.6); PTHIN 43.5 pg/mL (18.4-80.1); Potassium 4.1 mmol/L (3.5-5.1); Protein, Total 7.2 g/dL (6.4-8.2); Sodium Level 138 mmol/L (136-145); Thyroid Stim Hormone (TSH) 0.26 uIU/mL (0.358-3.74); Triglycerides 110 mg/dL; Very Low Density Lipoprotein 22 mg/dL (5-40)
[2023-03-25 11:55] LABS: Vitamin D,25 Hydroxy 44.8 ng/mL
== END | disposition home or self-care (01) ==
LOC: LAB 10:44
PROVIDERS: PCP Family Medicine; Referring Provider Family Medicine; Visit Provider Family Medicine
DX: E11.9 Type 2 diabetes mellitus without complications (principal); M81.0 Age-related osteoporosis without current pathological fracture; K21.9 Gastro-esophageal reflux disease without esophagitis
CPT/HCPCS: 36415; 80053; 80061; 82306; 82330; 83735; 83970; 84443; 85027

== ENCOUNTER → 2023-05-12 | Outpatient (CLI) | payer BC, SELFPAY ==
--- NOTE | 2023-05-12 13:56 | RAD_ITS ---
STUDY: X-RAY - CERVICAL SPINE REASON FOR EXAM: Female, 62 years old. Neck pain. TECHNIQUE: 5 view(s) of the cervical spine were obtained on 6 images. COMPARISON: Intraprocedural images dated July 2022. FINDINGS: Osteopenia. Normal anterior atlantoaxial articulation. Normal odontoid process. Reversal of the normal lordotic curve with kyphotic angulation at C4-5. Diffuse moderate uncovertebral and facet sclerosis. 3 mm of anterolisthesis of C3 on C4 and C4 on C5. Diffuse intervertebral disc space narrowing from C5-C6 to C7-T1. Minimal anterior bony neural foraminal encroachment at C3-4, C4-5, C5-6, C6-7 and C7-T1 bilaterally. The soft tissue structures are normal. RAD/Cerv Spine 4 or 5 Views IMPRESSION: Osteopenia with reversal of the normal lordotic curve and moderate lower cervical spondylosis as described. Electronically Signed: Adrián Parikh MD at 14:47 EST ,
--- NOTE | 2023-05-12 13:56 | RAD_ITS ---
EXAM: XR THORACIC SPINE, 2 VIEWS CLINICAL INDICATION: CERVICAL DISORDER TECHNIQUE: Frontal and lateral views of the thoracic spine. COMPARISON: April 12, 2022 fluoroscopic views of the thoracic spine. No prior thoracic radiographs are provided. Prior report from intraprocedural exam also reported May 04, 2021. Multiple prior fluoroscopic studies of the thoracic spine, mention of the T5-T8 facet injections on May 14, 2019, those images were not provided. FINDINGS: VERTEBRAE: Minimal straightening of the usual kyphotic curvature of the thoracic spine. Slight decrease body height multiple levels without visible anterior or posterior buckling or visible lucent fracture line. No spondylolisthesis. No significant facet arthropathy. DISC SPACES: Unremarkable. Disc spaces are maintained. LUNGS AND PLEURAL SPACES: Suspicion of eventration of the right hemidiaphragm, difficult to exclude some mild medial right basilar infiltrate. The heart margins are seen. Slight blunting of the posterior costophrenic angles. RAD/Thoracic Spine 2 Views IMPRESSION: 1. Demineralization, mild chronic and degenerative changes. No visible acute-appearing fracture or retropulsion. 2. Blunting of the posterior costophrenic angles. Cannot exclude some mild right middle lobe-medial lower lobe and medial left lung base atelectasis or infiltrate. Electronically Signed: Ana Laura Peres MD at 8:03 EST ,
[2023-05-12 18:03] LABS: Thyroid Stim Hormone (TSH) 0.54 uIU/mL (0.358-3.74)
--- OUTSIDE RECORDS SUMMARY | 2023-05-12 19:57 | XMS RPT_ITS | CCD ---
Author Name Unknown Address [address] [place] [address] Organization [facility] Care Team Providers Care Uniform Room Attendant Name Role Phone LEROY DEWEY Unavailable Unavailable *SELF, REFERRED Unavailable Unavailable Steff Fountain Unavailable Unavailable PROVIDER, UNKNOWN Admitting Unavailable PROVIDER, UNKNOWN Attending Unavailable GISELLA ADHIKARI, DR ARTIS Primary Care Physician GISELLA ADHIKARI., DR. ARTIS Primary Care Unav ailable KEYS SALES MANAGEMENT TRAINEE (RxC2)MANDIE Attending Unava ilable Steff Fountain MD Primary Care Provider RICKY AMIN Attending Unavailable STEFF FOUNTAIN Primary Care Unavailabl e RICKY AMIN Attending Unavailable STEFF FOUNTAIN Primary Care Unavailabl e Steff Fountain Primary Care Provider Steff Fountain Primary Care Provider [phone] Steff Fountain Primary Care Provider MANDIE HUNT Attending Unavailable STEFF FOUNTAIN Primary Care Unavailable MANDIE HUNT Attending Unavailable STEFF FOUNTAIN Primary Care Unavailable MANDIE HUNT Attending Unavailable STEFF FOUNTAIN Primary Care Unavailable MANDIE HUNT Attending Unavailable STEFF FOUNTAIN Primary Care Unavailable Allergies Allergy Classification Reported Allergen(s) Allergy Type Date of Onset Reaction(s) Facility (1 source) Aminoglycosides allergy Drug allergy [facility] (1 source) Prednisone Drug allergy [facility] (20 sources) Prochlorperazine; Translations: [prochlorperazine] Drug Allergy 11-05-19 06 [facility] (20 sources) Streptomycin; Translations: [streptomycin] Drug Allergy 11-05-19 06 [facility] (1 source) varenicline; Translations: [varenicline] Drug Allergy Clouded consciousness (finding) [facility] Medications Current Medications Medication Drug Class(es) [...] / oxyCODONE hydrochloride 5 mg oral tablet (20 sources) Opioid Agonist Start: 07-28-2022 oxyCODONE-acetami nophen (Percocet) 5-325 MG tablet Completed/Discontinued Medications Medication Drug Class(es) Dates Sig (Normalized) Sig (Original) onabotulinumtoxina 200 unt injection (20 sources) Acetylcholine Release Inhibitor Start: 4 End: 4 onabotulinumtoxinA (Botox) injection 200 Units Problems Problem Classification Problem Date Documented Date Episodic/Chronic Aortic; peripheral; and visceral artery aneurysms (1 source) Aneurysm 02-06-2019 Chronic Disorders of lipid metabolism (1 source) Hypercholesterolemia 02-06-2019 Chronic Essential hypertension (1 source) Hypertensive disorder 02-06-2019 Chronic Headache; including migraine (12 sources) Transformed migraine; 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 without [...] Time Vital Sign Value Performing Clinician Rhonda yung 05-10-2023 14:09-0500 Body height 157.5 cm Mandie Hunt BEAR KEEPER - SALES MANAGEMENT TRAINEE Work Phone: [facility] [employer] 05-10-2023 14:09-0500 Body mass index (BMI) [Ratio] 26.7 kg/m2 Mandie Sylvie BEAR KEEPER - SALES MANAGEMENT TRAINEE Work Phone: [facility] [employer] 05-10-2023 14:09-0500 Body weight 66.22 kg Mandie Sylvie BEAR KEEPER - SALES MANAGEMENT TRAINEE Work Phone: [facility] [employer] 05-10-2023 14:09-0500 Diastolic blood pressure 87 mm[Hg] Mandie Hunt BEAR KEEPER - SALES MANAGEMENT TRAINEE Work Phone: [facility] [employer] 05-10-2023 14:09-0500 Heart rate 101 /min Mandie Sylvie BEAR KEEPER - SALES MANAGEMENT TRAINEE Work Phone: [facility] [employer] 05-10-2023 14:09-0500 Systolic blood pressure 124 mm[Hg] Mandie Hunt BEAR KEEPER - SALES MANAGEMENT TRAINEE Work Phone: [facility] [employer] 01-19-2023 11:18-0400 Body mass index (BMI) [Ratio] 26.34 kg/m2 Mandie Hunt BEAR KEEPER - SALES MANAGEMENT TRAINEE Work Phone: [facility] [employer] 01-19-2023 11:18-0400 Body weight 65.32 kg Mandie Sylvie BEAR KEEPER - SALES MANAGEMENT TRAINEE Work Phone: [facility] [employer] 01-19-2023 11:18-0400 Diastolic blood pressure 79 mm[Hg] Mandie Hunt BEAR KEEPER - SALES MANAGEMENT TRAINEE Work Phone: [facility] [employer] 01-19-2023 11:18-0400 Heart rate 96 /min Mandie Hunt BEAR KEEPER - SALES MANAGEMENT TRAINEE Work Phone: [facility] 01-19-2023 11:18-0400 Systolic blood pressure 144 mm[Hg] Mandie Bowleslellan BEAR KEEPER - SALES MANAGEMENT TRAINEE Work Phone: [facility] [employer] 10-27-2022 13:59-0400 Body height 157.5 cm Mandie Hunt BEAR KEEPER - SALES MANAGEMENT TRAINEE Work Phone: [facility] 10-27-2022 13:59-0400 Body mass index (BMI) [Ratio] 26.74 kg/m2 Mandie Bowleslellan BEAR KEEPER - SALES MANAGEMENT TRAINEE Work Phone: [facility] 10-27-2022 13:59-0400 Body weight 66.32 kg Mandie Bowleslellan BEAR KEEPER - SALES MANAGEMENT TRAINEE Work Phone: [facility] 10-27-2022 13:59-0400 Diastolic blood pressure 71 mm[Hg] Mandie Bowleslellan BEAR KEEPER - SALES MANAGEMENT TRAINEE Work Phone: [facility] 10-27-2022 13:59-0400 Heart rate 66 /min Mandie Hunt BEAR KEEPER - SALES MANAGEMENT TRAINEE Work Phone: [facility] 10-27-2022 13:59-0400 Systolic blood pressure 124 mm[Hg] Mandie Hunt BEAR KEEPER - SALES MANAGEMENT TRAINEE Work Phone: [facility] 08-04-2022 13:54-0400 Body mass index (BMI) [Ratio] 25.42 kg/m2 Mandie Hunt BEAR KEEPER - SALES MANAGEMENT TRAINEE Work Phone: [facility] 08-04-2022 13:54-0400 Body weight 63.05 kg Mandie Hunt BEAR KEEPER - SALES MANAGEMENT TRAINEE Work Phone: [facility] 08-04-2022 13:54-0400 Diastolic blood pressure 83 mm[Hg] Mandie Bowleslellan BEAR KEEPER - SALES MANAGEMENT TRAINEE Work Phone: [facility] 08-04-2022 13:54-0400 Heart rate 98 /min Mandie Sylvie BEAR KEEPER - SALES MANAGEMENT TRAINEE Work Phone: [facility] 08-04-2022 13:54-0400 Systolic blood pressure 132 mm[Hg] Mandie Hunt BEAR KEEPER - SALES MANAGEMENT TRAINEE Work Phone: [facility] 05-24-2022 14:13-0500 Body weight 62.6 kg Ricky Amin MD Work Phone: [facility] 05-24-2022 14:13-0500 Diastolic blood pressure 90 mm[Hg] Ricky Amin MD Work Phone: [facility] 05-24-2022 14:13-0500 Systolic blood pressure 120 mm[Hg] Ricky Amin MD Work Phone: [facility] 05-04-2022 13:10-0500 Body weight 61.69 kg Ricky Amin MD Work Phone: [facility] 05-04-2022 13:10-0500 Diastolic blood pressure 80 mm[Hg] Ricky Amin MD Work Phone: [facility] 05-04-2022 13:10-0500 Systolic blood pressure 120 mm[Hg] Ricky Amin MD Work Phone: [facility] Encounters Encounter Date Encounter Type Care Provider Facility Start: 05-10-2023 End: 05-10-2023 ambulatory MANDIESOFIE HUNT [facility] Start: 05-10-2023 End: 05-10-2023 Patient encounter procedure Mandie Hunt BEAR KEEPER - SALES MANAGEMENT TRAINEE Work Phone: [facility] Procedures Date Procedure Procedure Detail Performing Clinician Start: 01-25-2023 Mammography Mandie Tu Mims BEAR KEEPER - SALES MANAGEMENT TRAINEE Work Phone: Start: 01-20-2022 Mammography Mandie Tu Mims BEAR KEEPER - SALES MANAGEMENT TRAINEE Work Phone: Start: 04-13-2018 Mammography Ricky hess MD Work Phone: Start: 03-15-2011 Craniotomy MANDIE BUCKLEY ND BEAR KEEPER-SALES MANAGEMENT TRAINEE Start: 09-11-2010 Craniotomy MANDIE BUCKLEY WANDA BEAR KEEPER-SALES MANAGEMENT TRAINEE Aneurysm (morphologi c abnormality) MANDIE KEYS BEAR KEEPER-SALES MANAGEMENT TRAINEE H/O: tubal ligation MANDIE KEYS BEAR KEEPER-SALES MANAGEMENT TRAINEE Tonsillectomy and adenoidectomy MANDIE KEYS BEAR KEEPER-SALES MANAGEMENT TRAINEE Plan of Treatment Date Care Activity Detail Author Start: 03-01-2024 DTaP/Tdap/Td Vaccines (2 - Td or Tdap) DTaP/Tdap/Td Vaccines (2 - Td or Tdap) [facility] Start: 01-26-2024 Screening for malignant neoplasm of breast Mammogram [facility] Start: 08-02-2023 End: 08-02-2023 Patient encounter procedure 08/02/2023 12:30 PM EDT Procedure Visit [facility] [address] [place] [id number] Mandie Hunt APRN - SALES MANAGEMENT TRAINEE [address] [place] [address] [facility] Start: 05-10-2023 End: 05-10-2023 Patient encounter procedure 05/10/2023 2:30 PM EST Procedure Visit [facility] [address] [place] [id number] Mandie Hunt APRN - SALES MANAGEMENT TRAINEE [address] [place] [address] [facility] Start: 04-15-2023 End: 04-15-2023 Patient encounter procedure 04/15/2023 12:30 PM EST Procedure Visit [facility] [address] [place] [id number] Mandie Hunt APRN - SALES MANAGEMENT TRAINEE [address] [place] [address] [facility] Start: 04-10-2023 HPV TESTING HPV TESTING [facility] Start: 04-10-2023 PAP TESTING PAP TESTING [facility] Start: 01-20-2023 Screening for malignant neoplasm of breast Mammogram [facility] Start: 01-19-2023 End: 01-19-2023 Patient encounter procedure 01/19/2023 11:30 AM EDT Procedure Visit [facility] [address] [place] [address] Mandie Hunt APRN - SALES MANAGEMENT TRAINEE [address] [place] [address] [facility] Start: 11-26-2022 COVID-19 Vaccine ( season) COVID-19 Vaccine () [facility] Start: 11-26-2022 Influenza vaccination Influenza Vaccine (#1) [facility] Start: 10-27-2022 End: 10-27-2022 Patient encounter procedure [facility] Start: 08-04-2022 End: 08-04-2022 Patient encounter procedure 08/04/2022 Procedure Visit Neurology Mandie Hunt, SULEMA - SALES MANAGEMENT TRAINEE [address] [place] [address] [facility] Start: 03-28-2022 DEPRESSION ASSESSMENT DEPRESSION ASSESSMENT [facility] Start: 04-13-2019 Mammography MAMMOGRAM [facility] Start: 2018 RSV Immunization aged 60 or older (1 - 1-dose 60+ series) RSV Immunization aged 60 or older (1 - 1-dose 60+ series) [facility] Start: 09-28-2015 DIABETES SCREEN DIABETES SCREEN [facility] Start: 2008 SHINGRIX VACCINE (1 of 2) SHINGRIX VACCINE (1 of 2) [facility] Start: 2008 Zoster Vaccines (1 of 2) Zoster Vaccines (1 of 2) [facility] Start: 10-03-2003 COLOGUARD (FIT-DNA) COLOGUARD (FIT-DNA) [facility] Start: 10-03-2003 Colonoscopy COLONOSCOPY [facility] Start: 10-03-2003 COLORECTAL CANCER SCREENING COLORECTAL CANCER SCREENING [facility] Start: 10-03-[address] COLONOGRAPHY [facility] Start: 10-03-2003 FECAL OCCULT BLOOD FECAL OCCULT BLOOD [facility] Start: 10-03-2003 LIPID SCREEN LIPID SCREEN [facility] Start: 10-03-2003 SIGMOIDOSCOPY SIGMOIDOSCOPY [facility] Start: 1988 Screening for malignant neoplasm of cervix [facility] Start: 10-03-1979 Screening for malignant neoplasm of cervix Pap Smear [facility] Start: 1977 Urine microalbumin profile DTAP,TDAP,TD (1 - Tdap) [facility] Start: 1976 Diabetes mellitus screening Diabetes Screening [facility] Start: 1976 HEPATITIS C SCREENING HEPATITIS C SCREENING [facility] Start: 1976 Hepatitis C screening Hepatitis C Screening [facility] Start: 1976 HIV SCREENING HIV SCREENING [facility] Start: 1970 Depression Screening Depression Screening [facility] Start: 10-03-1959 MMR Vaccines (1 of 1 - Standard series) MMR Vaccines (1 of 1 - Standard series) [facility] Start: 1958 Annual wellness visit Medicare Initial Physical (IPPE) [facility] Start: 1958 Hepatitis B Vaccines (1 of 3 - 3-dose series) Hepatitis B Vaccines (1 of 3 - 3-dose series) [facility] Start: 1958 HIV screening HIV Screening [facility] Start: 1958 Lipid panel Lipid Panel [facility] Start: 1958 Screening for malignant neoplasm of colon [facility] Start: 1958 Thyroid stimulating hormone measurement TSH Level [facility] Immunizations Immunization Date Immunization Notes Care Provider Fa cili 01-13-2022 influenza virus vacc ine, unspecified formulation Mandie Hunt APRN - SALES MANAGEMENT TRAINEE Work Phone: [facility] 06-29-2021 Covid-19, Pfizer Gra y Top, Do Not Dilute, (Age 12 Y+), Im, L Mandie Hunt BEAR KEEPER - SALES MANAGEMENT TRAINEE Work Phone: [facility] Payers Date Payer Category Payer Unknown [id number] 2022 Unknown [id number] 2022 Medicaid [id number] 2022 Medicaid [id number] 2019 Unknown [id number] 1960 Unknown [id number] 1960 Unknown [id number] Social History Date Type Detail Facility Start: 02-06-2019 Tobacco smoking status Heavy t obacco smoker (finding) [facility] Sex Assigned At Sex [facility] Start: 05-04-2022 [facility] End: 05-26-2021 History of tobacco use Current smoker [facility] End: 05-26-2021 History of tobacco use Cigarette Smoker [facility] Start: 05-04-2022 End: 01-19-2023 Cigarettes smoked current (pack per day) - Reported 1 [facility] Start: 05-04-2022 Tobacco use and exposure Smoke less tobacco non-user [facility] Start: 05-04-2022 End: 05-24-2022 Alcohol intake Current drinker of alcohol (finding) [facility] Start: 05-04-2022 Tobacco Comment Only had 4 cig arette in the past 3 months [facility] Start: 1960 Sex Assigned At Not on file [facility] Start: 05-12-2022 End: 05-10-2023 Alcohol intake Ex-drinker (finding) [facility] Start: 05-02-2022 End: 10-27-2022 Exposure to SARS-CoV-2 (event) Not sure [facility] Start: 08-04-2022 End: 01-19-2023 Tobacco use panel [facility] Clinical Notes 05-04-2022 to 05-10-2023 SULEMA Guerrero CNP - 05/10/2023 2:30 PM ESTTelephone Encounter - Zulay Ward, PREETHI - 05/09/2023 6:56 AM ESTTelephone Encounter - Zulay Ward, PREETHI - 05/09/2023 6:56 AM EST Note Date & Type Note Facility 05-10-2023 Note DEPARTMENT OF NEUROL OGY BOTOX PROCEDURE NOTE FOR HEADACHE Date: 05/10/2023 Patient: Nerissa Beach : 1960 Diagnosis: Intractable [...] 2. L Frontalis 10 units 3. R Developmental Specialist 10 units 4. L Developmental Specialist 10 units 5. R Temporalis 30 units 6. L Temporalis 30 units 7. R Occipitalis 30 units 8. L Occipitalis 30 units 9. R Trapezious 20 units 10.L Trapezious 20 units Total units injected 200 units. Units discarded 0 units. Comments: Botox is Buy and Bill [facility] [id number] [x] Pt tolerated procedure well. Pt advised to avoid exercise or strenuous physical activity for 24 hours. Post treatment expectations reviewed in detail. SULEMA Guerrero [facility] 05-10-2023 History of Presen t illness Narrative DEPARTMENT OF NEUROLOGY BOTOX PROCEDURE NOTE FOR HEADACHE Date: 05/10/2023 Patient: Nerissa Beach : 1960 Diagnosis: Intractable [...] 2. L Frontalis 10 units 3. R Developmental Specialist 10 units 4. L Developmental Specialist 10 units 5. R Temporalis 30 units 6. L Temporalis 30 units 7. R Occipitalis 30 units 8. L Occipitalis 30 units 9. R Trapezious 20 units 10.L Trapezious 20 units Total units injected 200 units. Units discarded 0 units. Comments: Botox is Buy and Bill [facility] [id number] [x] Pt tolerated procedure well. Pt advised to avoid exercise or strenuous physical activity for 24 hours. Post treatment expectations reviewed in detail. SULEMA Guerrero CNP documented in this encounter [facility] 05-09-2023 Telephone encount er Note Last ov- 01/19/23 Next ov- 05/10/23 [facility] 05-09-2023 Miscellaneous Notes Formattin g of this note might be different from the original. Last ov- 01/19/23 Next ov- 05/10/23 documented in this encounter [facility] 04-11-2023 Telephone encount er Note Pt rescheduled. [facility] 04-11-2023 Miscellaneous Notes Formattin g of this note might be different from the original. Pt rescheduled. Name of caller: Nerissa Contact phone number: [phone] Relationship to Patient: patient Provider: JOSE LUIS Hunt Practice: Neurology Chief Complaint/Reason for Call: Nerissa called in to have her appointment that is scheduled for Tuesday04/15/2023 rescheduled. Nerissa states that any appointment in the afternoon is good for her. Please call her back to reschedule. Best time of day caller can be reached: any Patient advised that office/PCP has 24-48 business hours to return their call: Yes documented in this encounter [facility] 04-11-2023 Telephone encount er Note Name of caller: Nerissa Contact phone number: [phone] Relationship to Patient: patient Provider: JOSE LUIS Hunt Practice: Neurology Chief Complaint/Reason for Call: Nerissa called in to have her appointment that is scheduled for Tuesday04/15/2023 rescheduled. Nerissa states that any appointment in the afternoon is good for her. Please call her back to reschedule. Best time of day caller can be reached: any Patient advised that office/PCP has 24-48 business hours to return their call: Yes [facility] 01-19-2023 Note DEPARTMENT OF NEUROL OGY BOTOX [...] 2. L Frontalis 10 units 3. R Developmental Specialist 10 units 4. L Developmental Specialist 10 units 5. R Temporalis 30 units 6. L Temporalis 30 units 7. R Occipitalis 30 units 8. L Occipitalis 30 units 9. R Trapezious 20 units 10.L Trapezious 20 units Total units injected 200 units. Units discarded 0 units. Comments: Botox is Renato [facility] [id number] [x] Pt tolerated procedure well. Pt advised to avoid exercise or strenuous physical activity for 24 hours. Post treatment expectations reviewed in detail. SULEMA Guerrero CNP [facility] 01-19-2023 History of Presen t illness Narrative [...] 2. L Frontalis 10 units 3. R Developmental Specialist 10 units 4. L Developmental Specialist 10 units 5. R Temporalis 30 units 6. L Temporalis 30 units 7. R Occipitalis 30 units 8. L Occipitalis 30 units 9. R Trapezious 20 units 10.L Trapezious 20 units Total units injected 200 units. Units discarded 0 units. Comments: Botox is Renato [facility] [id number] [x] Pt tolerated procedure well. Pt advised to avoid exercise or strenuous physical activity for 24 hours. Post treatment expectations reviewed in detail. SULEMA Guerrero CNP documented in this encounter [facility] 10-27-2022 Note DEPARTMENT OF NEUROL OGY [...] 2. L Frontalis 10 units 3. R Developmental Specialist 10 units 4. L Developmental Specialist 10 units 5. R Temporalis 30 units 6. L Temporalis 30 units 7. R Occipitalis 30 units 8. L Occipitalis 30 units 9. R Trapezious 20 units 10.L Trapezious 20 units Total units injected 200 units. Units discarded 0 units. Pt reports >50% reduction in migraines with Botox Comments: Botox is Buy and Bill [facility] [id number] [x] Pt tolerated procedure well. Pt advised to avoid exercise or strenuous physical activity for 24 hours. Post treatment expectations reviewed in detail. Mandie Hunt APRN - [facility] 10-27-2022 History of Presen t illness [...] 2. L Frontalis 10 units 3. R Developmental Specialist 10 units 4. L Developmental Specialist 10 units 5. R Temporalis 30 units 6. L Temporalis 30 units 7. R Occipitalis 30 units 8. L Occipitalis 30 units 9. R Trapezious 20 units 10.L Trapezious 20 units Total units injected 200 units. Units discarded 0 units. Pt reports >50% reduction in migraines with Botox Comments: Botox is Buy and Bill [facility] [id number] [x] Pt tolerated procedure well. Pt advised to avoid exercise or strenuous physical activity for 24 hours. Post treatment expectations reviewed in detail. SULEMA Guerrero CNP documented in this encounter [facility] 09-29-2022 Telephone encount er Note Please see message below. Will Botox still be covered? Thank you [facility] 09-29-2022 Miscellaneous Notes Formattin g of this note might be different from the original. Please see message below. Will Botox still be covered? Thank you Name of caller: Nerissa Contact phone number: [phone] Relationship to Patient: patient Provider: JOSE LUIS Hunt Practice: [facility] Neurology Chief Complaint/Reason for Call: Nerissa called in to advise of her new insurance being [place] [employer]. Nerissa has an appt with Bella to get her Botox, but she is not sure if that will be covered by [place]. Nerissa also states that her insurance will not cover her pain management provider, Dr. Marcus Gracia, in [place]. Nerissa states that she get her Gabapentin and her nerve block injections in her back and neck from him. Nerissa states she is unsure what to do and would like to have her [facility] Please contact Nerissa and advise. Best time of day caller can be reached: any Patient advised that office/PCP has 24-48 business hours to return their call: Yes documented in this encounter [facility] 09-29-2022 Telephone encount er Note Name of caller: Nerissa Contact phone number: [phone] Relationship to Patient: patient Provider: JOSE LUIS Hunt Practice: [facility] Neurology Chief Complaint/Reason for Call: Nerissa called in to advise of her new insurance being [place] [employer]. Nerissa has an appt with Bella to get her Botox, but she is not sure if that will be covered by [place]. Nerissa also states that her insurance will [...] business hours to return their call: Yes [facility] 09-10-2022 Telephone encount er Note Patient notified [facility] 09-10-2022 Miscellaneous Notes Formattin g of this note might be different from the original. Patient notified Please see message-[facility] Neurology group-please let pt know that I am having the Specialty Pharmacy look into this Name of caller: Nerissa Beach Contact phone number: [phone] Relationship to Patient: Patient Provider: Nichole Practice: [facility] Neuro Chief Complaint/Reason for Call: Patient [...] pain management doctor (Dr. Scott of [facility] - [phone]) and would like to know if Dr. Varela would be open to taking over her prescription of Neurontin or if she should check with her PCP. Please advise. Best time of day caller can be reached: Any Patient advised that office/PCP has 24-48 business hours to return their call: Yes documented in this encounter [facility] [facility] 09-10[facility]2022 Telephone encount er Note Please see message-[facility] Neurology group-please let pt know that I am having the Specialty Pharmacy look into this [facility] 09-10-2022 Telephone encount er Note Name of caller: Nerissa Beach Contact phone number: [phone] Relationship to Patient: Patient Provider: Nichole Practice: [facility] Chief Complaint/Reason for Call: Patient [...] pain management doctor (Dr. Scott of [facility] - [phone]) and would like to know if Dr. Varela would be open to taking over her prescription of Neurontin or if she should check with her PCP. Please advise. Best time of day caller can be reached: Any Patient advised that office/PCP has 24-48 business hours to return their call: Yes [facility] 08-04-2022 Note DEPARTMENT OF NEUROL OGY BOTOX [...] 2. L Frontalis 10 units 3. R Developmental Specialist 10 units 4. L Developmental Specialist 10 units 5. R Temporalis 30 units 6. L Temporalis 30 units 7. R Occipitalis 30 units 8. L Occipitalis 30 units 9. R Trapezious 20 units 10.L Trapezious 20 units Total units injected 200 units. Units discarded 0 units. She reports 3 migraines per month Nurtec is effective Comments: Botox is Patient Supplied [facility] [phone] [x] Pt tolerated procedure well. Pt advised to avoid exercise or strenuous physical activity for 24 hours. Post treatment expectations reviewed in detail. Mandie Hunt APRN - [facility] 08-04-2022 History of Presen t illness [...] 2. L Frontalis 10 units 3. R Developmental Specialist 10 units 4. L Developmental Specialist 10 units 5. R Temporalis 30 units 6. L Temporalis 30 units 7. R Occipitalis 30 units 8. L Occipitalis 30 units 9. R Trapezious 20 units 10.L Trapezious 20 units Total units injected 200 units. Units discarded 0 units. She reports 3 migraines per month Nurtec is effective Comments: Botox is Patient Supplied [facility] [phone] [x] Pt tolerated procedure well. Pt advised to avoid exercise or strenuous physical activity for 24 hours. Post treatment expectations reviewed in detail. SULEMA Guerrero CNP documented in this encounter [facility] [employer] 08-03-2022 Telephone encount er Note Approved from 07/27/22 - 07/28/23 Authorization number : [id number] [facility] [employer] Work Phone: 08-03-2022 Miscellaneous Notes Formattin g of this note might be different from the original. Approved from 07/27/22 - 07/28/23 Authorization number : [id number] Can you provide the start and end date for the auth please Kadi said 200 units for Botox Is she approved for 200 units or 155 units? The patient has upcoming Botox appt on 08/04. The Botox will be supplied by us at [facility] and delivered to the MD office on 08/03. BOTOX IS PATIENT SUPPLIED!!! documented in this encounter [facility] 08-02-2022 Telephone encount er Note Can you provide the start and end date for the auth please [facility] 08-02-2022 Miscellaneous Notes Formattin g of this note might be different from the original. Can you provide the start and end date for the auth please Kadi said 200 units for Botox Is she approved for 200 units or 155 units? The patient has upcoming Botox appt on 08/04. The Botox will be supplied by us at [facility] and delivered to the MD office on 08/03. BOTOX IS PATIENT SUPPLIED!!! documented in this encounter [facility] 08-02-2022 Telephone encount er Note Kadi said 200 units for Botox [facility] 07-30-2022 Telephone encount er Note Is she approved for 200 units or 155 units? [facility] 07-30-2022 Telephone encount er Note The patient has upcoming Botox appt on 08/04. The Botox will be supplied by us at [facility] and delivered to the MD office on 08/03. BOTOX IS PATIENT SUPPLIED!!! [facility] 05-24-2022 Note HNO ID: [id number] Author: Ricky Amin MD Service: ? Author [...] L0 SAB0 IAB0 Ectopic0 Multiple0 Live Births0 Document Improvement Specialist History LMP: 09/25/2005, Postmenopausal Age at Menarche: Age at First : Age at Menopause: Document Improvement Specialist History Comments: Sexual Activity: Never; No partner [...] external genitalia normal, normal Bartholin's glands, urethra, Laporte's glands, no vulvar lesions, no cervical lesions, [...] or sooner as needed Ricky Amin MD [facility] 05-24-2022 History of Presen t illness Narrative Nerissa is a 61 year old who presents for an annual gynecologic exam without complaints. Postmenopausal: Yes HRT use: No. Last Pap: 04/13/2018 normal HPV: 04/13/2018 negative History of abnormal pap: No Last mammogram: 2021 normal History of abnormal mammogram: No OB History T0 L0 SAB0 IAB0 Ectopic0 Multiple0 Live Births0 Document Improvement Specialist History LMP: 09/25/2005, Postmenopausal Age at Menarche: Age at First : Age at Menopause: Document Improvement Specialist History Comments: Sexual Activity: Never; No partner [...] external genitalia normal, normal Bartholin's glands, urethra, Laporte's glands, no vulvar lesions, no cervical lesions, [...] Ricky Amin MD documented in this encounter [facility] 05-12-2022 Note DEPARTMENT OF NEUROL [...] 2. L Frontalis 10 units 3. R Developmental Specialist 10 units 4. L Developmental Specialist 10 units 5. R Temporalis 20 units 6. L Temporalis 20 units 7. R Occipitalis 15 units 8. L Occipitalis 15 units 9. R Trapezious 22.5 units 10.L Trapezious 22.5 units Total units injected 155 units. Units discarded 45 units. Comments: Botox is Buy and Bill [facility] [phone] Pt reports that migraines are controlled with Botox and Qulipta. Nurtec is effective Denies side effects from medication [x] Pt tolerated procedure well. Pt advised to avoid exercise or strenuous physical activity for 24 hours. Post treatment expectations reviewed in detail. Mandie Keys APRN - [facility] 05-04-2022 Note HNO ID: [id number] Author: Ricky Amin MD Service: ? 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 Ricky Amin MD documented in this encounter [facility] Evaluation + Plan note No data available for this section [facility] Diagnosis Encounter for gynecological examination (general) (routine) without abnormal findings- Primary documented in this encounter [facility] note* Diagnosis Intractable migraine without aura and without status migrainosus- Primary [facility] Diagnosis Intractable migraine without aura and without status migrainosus- Primary documented in this encounter [facility] note* Diagnosis Intractable migraine without aura and without status migrainosus- Primary documented in this encounter [facility] Discharge instructions No data available for this section [facility] Progress note No data available for this section [facility] Summary Purpose Family History No Family History Records FoundNo Family History Records FoundNo Family History Records FoundNo Family History Records FoundNo Family History Records Found Advance Directives No Advanced Directives Records FoundNo Advanced Directives Records FoundNo Advanced Directives Records FoundNo Advanced Directives Records FoundNo Advanced Directives Records Found Reason for Referral Specialty Diagnoses / Procedures Referred By Anil ibrahim Referred To Contact Diagnoses Intractable migraine without aura and without status migrainosus Mandie Hunt, SULEMA - SALES MANAGEMENT TRAINEE [address] [place] [address] Referral ID Status Reason Start Date Expiration Date V isits Requested Visits Authorized [id number] Pending Review 08/04/2022 01/31/2023 1 1 Additional Source Comments INFORMATION SOURCE (unrecogn ized section and content) DATE CREATED AUTHOR AUTHOR'S ORGANIZ ATION 01/16/2020 [employer] DATE CREATED AUTHOR AUTHOR'S ORGANIZ ATION 12/25/2021 [facility] ([place]) DATE CREATED AUTHOR AUTHOR'S ORGANIZ ATION 05/25/2022 [facility] DATE CREATED AUTHOR AUTHOR'S ORGANIZ ATION 05/12/2023 [facility] Care Team (unrecognized sect ion and content) Care Team Personnel Name: STEFF [place] MD Member Role: Primary Care Physician Address: Address: [address] [place] [address] [address] [place] [address]- [place] Care Team Related Persons Name: BRITTANY SCHWARZ Name: MANUEL ELIAS Source Comments (unrecognize d section and content) In the event this informatio n is protected by the Federal Confidentiality of Alcohol and Drug Abuse Patient Records regulations: The Federal rules restrict any use of the information to criminally investigate or prosecute any alcohol or drug abuse patient.[facility] the event this information is protected by the Federal Confidentiality of Alcohol and Drug Abuse Patient Records regulations: The Federal rules restrict any use of the information to criminally investigate or prosecute any alcohol or drug abuse patient.[facility] Reason for Visit (unrecogniz ed section and content) Specialty Diagnoses / Procedures Referred By Contac t Referred To Contact Diagnoses Intractable migraine without aura and without status migrainosus Mandie Hunt, BEAR KEEPER - SALES MANAGEMENT TRAINEE [address] [facility] [address] [place] [address] Referral ID Status Reason Start Date Expiration Date V isits Requested Visits Authorized [id number] Pending Review 05/10/2023 05/04/2024 1 1 Reason Comments Procedure Botulinum Toxin Injection Referral ID Status Reason Start Date Expiration Date V isits Requested Visits Authorized [id number] Pending Review 01/19/2023 07/18/2023 1 1 Reason Comments Botulinum Toxin Injection Referral ID Status Reason Start Date Expiration Date V isits Requested Visits Authorized [id number] Pending Review 10/27/2022 04/25/2023 1 1 Reason Comments New Patient Vaginal Problem Reason Comments Document Improvement Specialist Exam Reason Comments Med Refill Reason Onset Date Comments Botox patient supplied delivery 07/30/2022 Botox Patient Supplied Delivery Referral ID Status Reason Start Date Expiration Date V isits Requested Visits Authorized [id number] Pending Review 08/04/2022 01/31/2023 1 1 Reason Onset Date Comments Medication Problem 09/10/2022 Reason Onset Date Comments New Insurance 09/29/2022 Reason Onset Date Comments Reschedule 04/11/2023 Care Teams (unrecognized sec tion and content) Uniform Room Attendant Relationship Specialty Start Date End Date Steff Fountain MD [address] [place], [place] [id number] PCP - General Family Medicine 06/02/10 Uniform Room Attendant Relationship Specialty Start Date End Date Steff Fountain [address] [facility] [address] [place] [phone] PCP - General 02/05/20 Uniform Room Attendant Relationship Specialty Start Date End Date Steff Fountain [address] [facility] [address] [place] [phone] PCP - General 02/05/20 Uniform Room Attendant Relationship Specialty Start Date End Date Steff Fountain [address] [facility] [address] [place] [phone] PCP - General 02/05/20 Uniform Room Attendant Relationship Specialty Start Date End Date Steff Fountain [address] [place] [address] PCP - General 02/05/20 Uniform Room Attendant Relationship Specialty Start Date End Date Steff Fountain [address] [place] [address] PCP - General 02/05/20 Uniform Room Attendant Relationship Specialty Start Date End Date Steff Fountain [address] [place] [address] PCP - General 02/05/20 Uniform Room Attendant Relationship Specialty Start Date End Date Steff Fountain [address] [place] [address] PCP - General 02/05/20 Uniform Room Attendant Relationship Specialty Start Date End Date Steff Fountain [address] [place] [address] PCP - General 02/05/20 Uniform Room Attendant Relationship Specialty Start Date End Date Steff Fountain [address] [place] [address] PCP - General 02/05/20 Uniform Room Attendant Relationship Specialty Start Date End Date Steff Fountain [address] [place] [address] PCP - General 02/05/20 Uniform Room Attendant Relationship Specialty Start Date End Date Steff Fountain [address] [place] [address] PCP - General 02/05/20 FOR RECORDS PERTAINING TO PATIENTS [...] BE BASED ON THE PRIMARY CLINICAL RECORDS. [facility] [employer] [facility]. provides no warranty or guarantee of the accuracy or completeness of information in this document.
== END | disposition home or self-care (01) ==
LOC: MTLAB 13:53
PROVIDERS: PCP Family Medicine; Referring Provider Family Medicine; Visit Provider Family Medicine
DX: E03.9 Hypothyroidism, unspecified (principal); M50.90 Cervical disc disorder, unspecified, unspecified cervical region
CPT/HCPCS: 36415; 72050; 72070; 84443

== ENCOUNTER → 2023-11-25 | Outpatient (CLI) | payer MEDICARE, SELFPAY ==
--- NOTE | 2023-11-25 13:19 | CT_ITS ---
STUDY: LOW DOSE CT LUNG CANCER SCREENING REASON FOR EXAM: Female, 63 years old. One pack per day smoker x45 years, quit 2.5 years ago RADIATION DOSAGE (If Supplied By Facility): CTDIvol = ( 2.01 ) mGy, DLP = ( 57.15 ) mGycm TECHNIQUE: No contrast was administered. Low dose technique was utilized (average mAS-38 and kVp 120). 1.25 mm axial source images with a slice interval of 1.25-mm were reconstructed in lung windows. 2.5 mm axial source images with a slice interval of 2.5-mm were reconstructed in lung windows. 5.0 mm axial source images with a slice interval of 5.0-mm were reconstructed in soft tissue windows. COMPARISON: 10/21/2020 NODULES: Lung windows show lungs to be normally expanded. There are chronic interstitial changes in both lung hudson without a superimposed infiltrate, effusion, or suspicious noncalcified mass or nodule. Fibrotic scarring noted in both lung bases. No significant interval change is noted since the previous study. Limited soft tissue windows show normal-appearing thyroid gland. No suspicious adenopathy. There are peripheral calcifications in the thoracic aorta without aneurysm. There are calcified coronary vessels. Limited cuts through the upper abdomen do not show a suspicious abnormality. Bony structures show degenerative change CT/Low Dose CT Lung Screening IMPRESSION: Lung-RADS category 1 - Continue annual screening with LDCT in 12 months. IMPORTANT NOTES FOR USE: ACR Lung-RADS Version 1.1 Assessment Categories Release Date: 2018 Category: Coded 0-4 bases on nodule(s) with highest degree of suspicion. Negative screen is defined as categories 1 and 2; a positive screen is defined as categories 3 and 4. Category 3 and 4A nodules that are unchanged on interval CT should be coded as category 2, and individuals returned to screening in 12 months. Category 4X: Category 3 or 4 nodules with additional imaging findings that increase the suspicion of lung cancer, such as spiculation, GGN that doubles in size in 1 year, enlarged lymph notes, etc. Category Modifiers: S (significant finding unrelated to lung cancer) Electronically Signed: Gualberto Nichole MD at 15:30 EDT ,
== END | disposition home or self-care (01) ==
PROVIDERS: PCP Family Medicine; Referring Provider Family Medicine; Visit Provider Family Medicine
DX: F17.210 Nicotine dependence, cigarettes, uncomplicated (principal)
CPT/HCPCS: 71271

== ENCOUNTER → 2024-01-25 | Outpatient (CLI) | payer MEDICARE, SELFPAY ==
--- NOTE | 2024-01-25 16:24 | RAD_ITS ---
EXAM: XR CERVICAL SPINE, 6 OR MORE VIEWS CLINICAL INDICATION: CERVICAL DISC DEGENERATION TECHNIQUE: Frontal, lateral, oblique and flexion/extension views of the cervical spine. COMPARISON: 05/12/2023. FINDINGS: VERTEBRAE: Mild anterior subluxation of C4 on C5 that increases slightly with flexion. Mild neural foraminal narrowing on the right at C4-C5, C5-C6, C6-C7, and C7-T1 and mild neural foraminal narrowing on the left at C5-C6, C6-C7, and C7-T1 due to uncovertebral joint osteophytes. Preserved vertebral body height. No acute fracture. No spondylolisthesis. Preservation of the normal cervical lordosis. No significant facet arthropathy. DISC SPACES: Moderate disc space narrowing and marginal osteophytes C5-C6, C6-C7, and C7-T1 with vacuum disc phenomenon at C7-T1. No significant changes since 05/12/2023. SOFT TISSUES: Unremarkable. No prevertebral soft tissue widening. LUNG APICES: Clear. RAD/Cerv Spine Obl/Flex/Ext Comp IMPRESSION: 1. Moderate degenerative disc disease C5-6 through C7-T1. No change since prior. 2. Mild anterior subluxation of C4 on C5 that increases slightly with flexion. 3. Mild neural foraminal narrowing on the right at C4-C5, C5-C6, C6-C7, and C7-T1 and mild neural foraminal narrowing on the left at C5-C6, C6-C7, and C7-T1 due to uncovertebral joint osteophytes. No change since prior. Electronically Signed: Shaheed Saini MD at 6:52 EDT ,
== END | disposition home or self-care (01) ==
LOC: RAD 16:17
PROVIDERS: PCP Family Medicine; Referring Provider Anesthesiology Pain Medicine; Visit Provider Anesthesiology Pain Medicine
DX: M50.30 Other cervical disc degeneration, unspecified cervical region (principal)
CPT/HCPCS: 72052

== ENCOUNTER → 2024-02-08 | Outpatient (CLI) | payer MEDICARE, SELFPAY | END | disposition home or self-care (01) | LOC: OPBI 14:54 | PROVIDERS: PCP Family Medicine; Referring Provider Family Medicine; Visit Provider Family Medicine | DX: Z12.31 Encounter for screening mammogram for malignant neoplasm of breast (principal) | CPT/HCPCS: 77063; 77067 ==

== ENCOUNTER → 2024-02-13 | Outpatient (CLI) | payer MEDICARE, SELFPAY ==
[2024-02-13 09:53] LABS: Hemoglobin 14.5 g/dL (12.0-15.0); Mean Corp Hgb Conc 32.2 g/dL (32-36); Mean Corpuscular Hgb 30.9 pg (27.0-32.0); Mean Corpuscular Volume 95.9 fL (81-99); Mean Platelet Vol. 8.9 fl (6.2-12.0); Platelet Count 294 K/mm3 (150-450); RBC Distribution Width CV 13.7 % (11.6-14.6); RBC Distribution Width SD 48.4 fl (35.1-43.9); Red Blood Count 4.69 M/mm3 (4.2-5.4); White Blood Count 8.3 K/mm3 (4.4-11.0)
[2024-02-13 10:20] LABS: Vitamin D,25 Hydroxy 34.9 ng/mL
[2024-02-13 10:30] LABS: ALB/GLOB Ratio 0.8 RATIO (0.9-2.4); AST(SGOT) 17 U/L (15-37); Alanine Aminotransfer ALT/SGPT 28 U/L (13-56); Albumin, Serum 3.4 g/dL (3.2-5.0); Alkaline Phosphatase 76 U/L (45-117); Anion Gap 4 (5-15); BUN 11 mg/dL (7-18); BUN/Creat Ratio 12.1 RATIO (10-20); Calcium,Total 8.9 mg/dL (8.5-10.1); Chloride 103 mmol/L (98-107); Cholesterol 202 mg/dL (200); Creatinine, Serum 0.91 mg/dL (0.55-1.02); EST Glomerular Filtration Rate 66 mL/min (>60); Est Glom Filt Rate - Afr Amer 80 mL/min (>60); Globulin 4.2 g/dL (2.2-4.2); Glucose 141 mg/dL (74-106); High Density Lipoprotein 90 mg/dL; Potassium 3.8 mmol/L (3.5-5.1); Protein, Total 7.6 g/dL (6.4-8.2); Sodium Level 136 mmol/L (136-145); Triglycerides 177 mg/dL; Very Low Density Lipoprotein 35 mg/dL (5-40)
== END | disposition home or self-care (01) ==
LOC: LAB 09:34
PROVIDERS: PCP Family Medicine; Referring Provider Family Medicine; Visit Provider Family Medicine
DX: I10 Essential (primary) hypertension (principal); E11.69 Type 2 diabetes mellitus with other specified complication; E55.9 Vitamin D deficiency, unspecified; E03.9 Hypothyroidism, unspecified
CPT/HCPCS: 36415; 80053; 80061; 82306; 84443; 85027

== ENCOUNTER → 2024-05-22 | Outpatient (CLI) | payer MEDICARE, SELFPAY ==
--- NOTE | 2024-05-22 15:35 | RAD_ITS ---
PROCEDURE: THORACIC SPINE 3 VIEWS REASON FOR EXAM: Thoracic degenerative disc disease. TECHNIQUE: AP and lateral views were obtained. COMPARISON: Comparison is made with prior study dated May 12, 2023. FINDINGS: Demineralization of the vertebral bodies. Mild multilevel disc space narrowing. Normal alignment. No spondylolisthesis. Small bilateral pleural effusions and bibasilar atelectasis. RAD/Thoracic Spine 3 Views IMPRESSION: Demineralization of the vertebral bodies as well as disc space narrowing. Reading Location: [id number]
== END | disposition home or self-care (01) ==
PROVIDERS: PCP Family Medicine; Referring Provider Clinical Nurse Specialist Adult Health; Visit Provider Clinical Nurse Specialist Adult Health
DX: M51.34 Other intervertebral disc degeneration, thoracic region (principal)
CPT/HCPCS: 72072

== ENCOUNTER 2024-07-30 06:14 | Day surgery (SDC) | payer MEDICARE, SELFPAY ==
[2024-07-30] VITALS (8 sets, daily range): BP systolic 108–144; BP diastolic 75–79; PULSE 86–104; RESP 16–20; TEMP 36.4–36.7; O2SAT 94–100; BMI 26.8
[2024-07-30] MEDS: Lactated Ringers 1,000 ML 15 ML IV (06:30)
--- NOTE | 2024-07-30 06:58 | PCM.PRE.AN2 ---
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 Also has HTN, GERD, Diabetes, Thyroid, and active smoker. ) Assessment & Plan Anesthesia* Anesthesia Assessment Anesthesia Assessment: Discussed sedation and/or anesthesia options, risks, benefits, and alternatives with patient/parents/legal guardian/POA. Questions invited. The patient/parents/legal guardian/POA seems to understand and agrees to proceed with anesthesia plan. Reviewed the physical assessment, medical history, allergy history and patient home medications list prior to surgery/procedure/anesthetic and documented any changes. Performed airway and anesthesia risk assessments. Anesthesia Type Anesthesia Type: General History Source History Obtained from:: Patient and Chart Anesthesia Focused Assessment* Temperature: 98.1 F Pulse Rate: 104 Blood Pressure: 144/75 Respiratory Rate: 20 Pulse Ox: 100 Oxygen Delivery Method: Room Air Airway Assessment Mouth opens: >3 cm Mallampati Score: II Teeth Condition: Dentures (currently out, edentulous today) Neck Range of motion (ROM): Full ROM Focused Labs Anesthesia Preop lab: CBC WBC 8.3 K/mm3 (4.4-11.0) 02/13/24 09:37 02/13/24 RBC 4.69 M/mm3 (4.2-5.4) 02/13/24 09:37 02/13/24 Hgb 14.5 g/dL (12.0-15.0) 02/13/24 09:37 02/13/24 Hct 45.0 % (37-47) 02/13/24 09:37 02/13/24 Plt Count 294 K/mm3 (150-450) 02/13/24 09:37 02/13/24 CHEMISTRY Potassium 3.8 mmol/L (3.5-5.1) 02/13/24 09:37 02/13/24 Sodium 136 mmol/L (136-145) 02/13/24 09:37 02/13/24 Magnesium 1.8 mg/dL (1.6-2.6) 03/25/23 10:47 03/25/23 Phosphorus 3.4 mg/dL (2.5-4.9) 01/07/21 09:32 01/07/21 BUN 11 mg/dL (7-18) 02/13/24 09:37 02/13/24 Creatinine 0.91 mg/dL (0.55-1.02) 02/13/24 09:37 02/13/24 Glucose 141 mg/dL (74-106) H 02/13/24 09:37 02/13/24 POC Glucose 101 mg/dL (74-106) 07/26/22 06:58 07/26/22 TSH 1.070 uIU/mL (0.358-3.740) 02/13/24 09:37 02/13/24 COAG Pre-Assessment Diagnosis/Proposed Procedure Planned Operative Procedure(s): EGD Anesthesia History Anesthesia History - motorcycle deliverer: Anesthesia History - motorcycle deliverer Hx Hospitalization No 07/25/24 10:51 Any Problems With Anesthesia No 07/25/24 10:51 Cholinesterase deficiency No 07/25/24 10:51 You/Your Family Experience No 07/25/24 10:51 fever (hyperthermia) with Relationship Recent Exposure to Contagious No 07/30/24 06:37 Disease Does patient have nerve No 07/25/24 10:51 stimulator Patient instructed to have device shut off --Does patient have Pacemaker No 07/30/24 06:37 or ICD? When Was Last Pacemaker Check QUESTION #4 FULL TEXT: You/Your Family Experience fever (hyperthermia) with Anesthesia Last Oral Intake Last Oral intake: Last Oral Intake NPO since 21:00 07/30/24 06:37 Meds taken in AM with sips of Yes 07/30/24 06:37 water? Meds patient instructed to take am of surgery PONV PONV - motorcycle deliverer: PONV - motorcycle deliverer Female Yes 07/25/24 10:51 HX of Motion Sickness No 07/25/24 10:51 HX of N/V After Surgery No 07/25/24 10:51 Non-Smoker No 07/25/24 10:51 Duration of Surgery greater No 07/25/24 10:51 than 60 minutes Number of Risk Factors 1 07/25/24 10:51 PONV Score Low Risk 07/25/24 10:51 Height & Weight Height & Weight: Anesthesia: Height & Weight Height 5 ft 2 in 07/30/24 06:37 Weight: 66.5 kg 07/30/24 06:37 Body Mass Index (BMI) 26.8 07/30/24 06:37 Respiratory Assessment Respiratory Assessment - motorcycle deliverer: Respiratory Tract Infection Hx - motorcycle deliverer Hx Respiratory Tract Infection No 07/25/24 10:51 STOP Sleep Apnea STOP Sleep Apnea - motorcycle deliverer: STOP Sleep Apnea - motorcycle deliverer Hx Hypertension Yes: CONTROLLED WITH MED 07/25/24 10:51 Hx Sleep Apnea No 07/25/24 10:51 CPAP No 07/25/24 10:51 BIPAP Do you snore loudly (louder Yes 07/25/24 10:51 than talking or can be heard Do you often feel tired/ No 07/25/24 10:51 fatigued/ sleepy during daytime? Has anyone observed you stop No 07/25/24 10:51 breathing during sleep? STOP Results Positive 07/25/24 10:51 QUESTION #5 FULL TEXT : Do you snore loudly (louder than talking or can be heard through closed doors)? 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 Specify any problems Hx of Preganancy in last 3 No 07/25/24 10:51 Months Nurse Filling Out Transfusion DSCHRIBER 07/25/24 10:51 & Questions: Date: 07/25/24 07/25/24 10:51 Time: 10:53 07/25/24 10:51 Patient unable to answer at this time (ie. confused, unrespo /Reproduction History /Reproductive History - motorcycle deliverer: /Reproductive Hx- motorcycle deliverer Hx Now No 07/25/24 10:51 Gestational Age (in weeks): EDC: Hx Hx Para Hx Section SAB No 07/25/24 10:51 Active Medications Active Medications: Current Medications Generic Name Dose Route Start Last Admin Trade Name Freq PRN Reason Stop Dose Admin Lactated Ringer's 1,000 mls @ 15 mls/hr 07/30/24 06:30 07/30/24 06:30 IV 15 mls/hr .Q48H OTILIA Administration PFSH Medical History (Updated 07/25/24 @ 11:00 by Donna Kumar) Pain Dietary restriction Shingles Gastric reflux Smoker Shortness of breath on exertion Hypertension Depression Anxiety History of edema Wears glasses Wears dentures Post-menopausal Thyroid disease Diabetes Arthritis High cholesterol Back pain Migraine headache Stroke/cerebrovascular accident History of diverticulitis Acute bronchitis Home Medications ?Medication ?Instructions ?Recorded ?Last Taken ?Type cholecalciferol (vitamin D3) 25 2,000 unit PO DAILY 02/18/16 07/29/24 History mcg (1,000 unit) tablet citalopram 40 mg tablet (Celexa) 40 mg PO QHS 02/18/16 07/29/24 History multivitamin 1 ea PO DAILY 02/18/16 07/29/24 History gabapentin 300 mg capsule 300 mg PO BID 04/25/18 07/29/24 History nortriptyline 50 mg capsule 75 mg PO QHS PRN PRN Insomnia 04/25/18 07/29/24 History atorvastatin 20 mg tablet 20 mg PO QHS 09/22/18 07/29/24 History levothyroxine 75 mcg tablet 75 mcg PO QHS THYROID 11/07/20 07/29/24 History bupropion HCl 150 mg 24 hr tablet, 150 mg PO DAILY 12/26/20 07/29/24 History extended release (Wellbutrin XL) lancets 30 gauge #100 ea 12/26/20 Unknown History onabotulinumtoxinA 100 unit 200 unit IM .[id number] 12/26/20 01/10/22 History solution for injection (Botox) metformin 500 mg tablet 500 mg PO BID 05/18/21 07/29/24 History rimegepant 75 mg disintegrating 75 mg PO DAILY PRN PRN Headache 05/18/21 07/28/24 History tablet (Nurtec ODT) pantoprazole 40 mg tablet,delayed 40 mg PO DAILY #30 tabs 05/20/21 07/30/24 Rx release atogepant 60 mg tablet (Qulipta) 60 mg PO DAILY 05/31/22 07/30/24 History calcium carbonate (Calcium 600) 600 mg PO DAILY 05/31/22 07/29/24 History losartan 25 mg tablet 25 mg PO DAILY 05/31/22 07/29/24 History sennosides 8.6 mg tablet (senna) 8.6 mg PO DAILY PRN constipation 05/31/22 Unknown History Allergy/AdvReac Type Severity Reaction Status Date / Time prochlorperazine (From Allergy as a child Verified 07/30/24 06:35 Compazine) streptomycin Allergy as a Verified 07/30/24 06:35 child. ? HIVES Family History Father Asthma Bleeding disorder Cancer skin Heart disease Hypertension High cholesterol Mother Arthritis Diabetes Heart disease High cholesterol Hypertension Kidney disease Osteoporosis Cancer skin Surgical History (Updated 07/25/24 @ 11:00 by Donna Kumar) Hx of esophagogastroduodenoscopy Hx of colonoscopy History of tubal ligation History of brain surgery Social History Smoking Status: Former smoker alcohol intake: never substance use type: does not use Review of Systems (Anesthesia) ROS Narrative System reviewed and no additional complaints, except as documented. Physical Exam Const alert, oriented x3 and average body habitus Resp normal respiratory effort, normal air movement and clear to auscultation bilaterally Cardio regular rate, regular rhythm, no murmurs and diaphoretic
--- NOTE | 2024-07-30 07:26 | H&P.OPEN ---
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 Patient still having symptoms on the Protonix states daily does not really notice that it does much for her. Patient mostly complains of burning up her esophagus. 06/04/24 office HPI HPI HPI: 63-year-old female presents for EGD for surveillance for Gardner's.. Patient states she does have some burning up her esophagus mainly with certain foods patient is on the Protonix 40 mg p.o. daily. Patient's last EGD was done in April 2021?biopsy did show Gardner's. Patient states she has been eating some tomato sauces and other foods that may irritate her stomach that she was unaware of currently. Previous to her last EGD patient was on omeprazole. [facility] Medical History (Updated 07/25/24 @ 11:00 by Donna Kumar) Pain Dietary restriction Shingles Gastric reflux Smoker Shortness of breath on exertion Hypertension Depression Anxiety History of edema Wears glasses Wears dentures Post-menopausal Thyroid disease Diabetes Arthritis High cholesterol Back pain Migraine headache Stroke/cerebrovascular accident History of diverticulitis Acute bronchitis Home Medications ?Medication ?Instructions ?Recorded ?Last Taken ?Type cholecalciferol (vitamin D3) 25 2,000 unit PO DAILY 02/18/16 07/29/24 History mcg (1,000 unit) tablet citalopram 40 mg tablet (Celexa) 40 mg PO QHS 02/18/16 07/29/24 History multivitamin 1 ea PO DAILY 02/18/16 07/29/24 History gabapentin 300 mg capsule 300 mg PO BID 04/25/18 07/29/24 History nortriptyline 50 mg capsule 75 mg PO QHS PRN PRN Insomnia 04/25/18 07/29/24 History atorvastatin 20 mg tablet 20 mg PO QHS 09/22/18 07/29/24 History levothyroxine 75 mcg tablet 75 mcg PO QHS THYROID 11/07/20 07/29/24 History bupropion HCl 150 mg 24 hr tablet, 150 mg PO DAILY 12/26/20 07/29/24 History extended release (Wellbutrin XL) lancets 30 gauge #100 ea 12/26/20 Unknown History onabotulinumtoxinA 100 unit 200 unit IM .[id number] 12/26/20 01/10/22 History solution for injection (Botox) metformin 500 mg tablet 500 mg PO BID 05/18/21 07/29/24 History rimegepant 75 mg disintegrating 75 mg PO DAILY PRN PRN Headache 05/18/21 07/28/24 History tablet (Nurtec ODT) pantoprazole 40 mg tablet,delayed 40 mg PO DAILY #30 tabs 05/20/21 07/30/24 Rx release atogepant 60 mg tablet (Qulipta) 60 mg PO DAILY 05/31/22 07/30/24 History calcium carbonate (Calcium 600) 600 mg PO DAILY 05/31/22 07/29/24 History losartan 25 mg tablet 25 mg PO DAILY 05/31/22 07/29/24 History sennosides 8.6 mg tablet (senna) 8.6 mg PO DAILY PRN constipation 05/31/22 Unknown History Allergy/AdvReac Type Severity Reaction Status Date / Time prochlorperazine (From Allergy as a child Verified 07/30/24 06:35 Compazine) streptomycin Allergy as a Verified 07/30/24 06:35 child. ? HIVES Family History Father Asthma Bleeding disorder Cancer skin Heart disease Hypertension High cholesterol Mother Arthritis Diabetes Heart disease High cholesterol Hypertension Kidney disease Osteoporosis Cancer skin Surgical History (Updated 07/25/24 @ 11:00 by Donna Kumar) Hx of esophagogastroduodenoscopy Hx of colonoscopy History of tubal ligation History of brain surgery Social History Smoking Status: Former smoker alcohol intake: never substance use type: does not use Past Medical/Surgical History Planned Operation Planned Operative Procedure(s): EGD S.O.S: No Previous Hospitalizations/Surgeries HX Hospitalizations: No HX of Surgeries: tonsillectomy tubal ligation brain surgery x4 for aneurysms/NO MRI ALLOWED EGD/COLONOSCOPY 2019 STEROID INJECTIONS/ DR GUZMAN Any Problems With Anesthesia: No You/Your Family Experience Fever (Hyperthermia) With Anes: No Cholinesterase deficiency: No Cardiovascular Hx Chest Pain within Last 2 months: No Hx of Irregular Heartbeat and/or Afib: No Hx Heart Attack: No Hx Congestive Heart Failure: No Hx Rheumatic Fever: No Hx Hypertension: No Hx Internal Defibrillator: No Hx Pacemaker: No Hx Cardiac Catheterization: No Hx Cardiac Surgery/Stents/Etc.: No Hx Stress Test: No Hx Pain in Legs when Walking/Leg Cramps: No Respiratory Chronic Cough: No HX of Shortness of Breath: No (.) Hoarseness: No Hx Chronic Obstructive Pulmonary Disease (COPD): No Hx Asthma: No Hx Emphysema: No Hx Sleep Apnea: No CPAP: No Hx Respiratory Tract Infection/Cold (presently): No Do You Snore Loudly (louder than talking or can be heard): Yes Do You Often Feel Tired/ Fatigued/ Sleepy Dring Daytime?: No Has Anyone Observed You Stop Breathing During Sleep?: No Result (for STOP score): Negative Hx Smoking: Yes (1ppd for 40 yrs) Smoking Status: Former smoker Gastrointestinal Controlled With Meds: Yes (OMEPRAZOLE) Hx Gastrointestinal Disorders: Yes (diverticulitis in the past) Hx Gastrointestinal Bleed: No Hx Ulcer: No Hx Hiatal Hernia: No Difficulty Chewing/Swallowing: No Special diet followed at home: No Hx Unplanned Weight Loss of 20#: No HX Unplanned Weight Gain of 20#: No Neurological Hx Seizures: No HX Syncope/Blackout Spells/Unconsciousness: No Hx Transient Ischemic Attacks (TIA): No (DR Gordon BANUELOS) Hx Multiple Sclerosis: No Hx Parkinson's Disease: No Hx Head/Neck Injury: Yes (neck pain/injections as needed) Hx Headaches: Yes (botox injections q3mo) Hx Back Injury/Pain: Yes (thoracic back pain/back injections) Recent Onset of Speech Difficulty: No Restless Legs: No Does patient have nerve stimulator: No Blood Disorder Hx Leukemia: No Bleeding Tendencies: No Hx Deep Vein Thrombosis: No Hx High Cholesterol: Yes (on med) Blood Transmitted Disease: No Hx Hepatitis: No Hx Cirrhosis: No Hx Anemia: No Hx Blood Disorders: No Reproduction : No Is Patient Lactating: No Hx Hysterectomy: No Hx Tubal Ligation: Yes Are You Post Menopause: Yes Genitourinary Hx Renal Disease: No Hx Dialysis: No Musculoskeletal Hx Arthritis: Yes Hx Rheumatoid Arthritis: No Hx Gout: No Recent Onset of an Orthopedic Problem: No Endocrine Hx Diabetes: Yes Thyroid Disease: Yes (on med) Hx Steroid Therapy: No Psycho/Social Hx Substance Use: No Hx Alcohol Use: No Hx Anxiety: Yes (on med) Hx Depression: Yes (on med) Mental Illness: No Hx Dementia: No Miscellaneous Hx Cancer: No Recent Exposure to Contagious Disease: No Hx of C-Diff: No Any Loose Teeth: No (lower partial) Allergies prochlorperazine (From Compazine) Allergy (Verified 07/30/24 06:35) as a child streptomycin Allergy (Verified 07/30/24 06:35) as a child. ? HIVES Discharge Is Pt Admitted From a Residential, or a Care Home: No After D/C, Where Do you Plan to Go: Return Home From the PAT History Number of Risk Factors: 5 Vital Signs Vital Signs Vital Signs: 07/30/24 06:37 07/30/24 06:37 07/30/24 06:59 Temperature 98.1 F 98.1 F Temperature Source Temporal Pulse Rate 104 H 104 H Respiratory Rate 20 H 20 H Respiratory Pattern Normal Blood Pressure 144/75 H 144/75 H Blood Pressure Mean 98 Blood Pressure Source Monitor Blood Pressure Position Supine Blood Pressure Location Left Arm Pulse Ox 100 100 Oxygen Delivery Method Room Air Room Air Weight Weight: 146 lb 9.718 oz Body Mass Index (BMI) 26.8 Assessment & Plan Assessment/Plan (1) Gardner esophagus: PLAN: Plan I have discussed the above with the patient. I have offered the patient esophagogastroduodenoscopy for evaluation. I have explained the risks/benefits of the procedure and described the procedure. I have discussed the risks with the patient, including but not limited to: infection, bleeding, perforation of the GI tract requiring emergency surgery, inability to complete the procedure, injury to any internal organs, complications of anesthesia, etc. - the patient understands and agrees to proceed. I have answered all the patient's questions to the patient's satisfaction and the patient has no further questions. Surgery Risks - Colonoscopy Risks Include but are not Limited To: Plan for EGD only. Risks include but are not limited to: Bleeding, perforation requiring further surgery,
--- NOTE | 2024-07-30 07:30 | EGD_PTH ---
PATIENT: SOPHIE STARKEY LOC: EN U#:[id number] AGE/SX: 63/F ROOM: RE07/30/[address]: Dr. Lauren Bruner MD : 1960 BED: DIS: 07/30/2024 SPEC #: [id number] RECD: 07/30/24 10:49 STATUS: PETER REBora #: [id number] GRACE: 07/30/24 07:[address]: Lauren Bruner DEPT: SURGICAL PATHOLOGY RECD BY: Maxi Agrawal ENTERED: 07/30/24 11:54 SP TYPE: EGD BIOPSY BRINDA DR: Dr. Caleb Fountain MD Tissues: A - Gastric mucous membrane B - Esophagus, NOS Procedures: Immunohistochemical Stains Surgery Specimen Level IV HEADER OPERATION: EGD with biopsy PRE-OP DIAGNOSIS: Gardner's esophagus TISSUE SUBMITTED: A- Antrum biopsy, B- Gastroesophageal junction biopsy MICROSCOPIC DIAGNOSIS A. Stomach, antrum, biopsy: * Antral/transitional mucosa with features of reactive gastropathy. * IHC negative for H pylori organisms. B. Gastroesophageal junction, biopsy: * Squamous mucosa with reactive changes. * Columnar mucosa negative for goblet cell metaplasia. * Negative for dysplasia. MICROSCOPIC DESCRIPTION Slides are reviewed. All matched controls reacted appropriately. These tests were developed and their performance characteristics determined by [facility]. They may not have been cleared or approved by the U.S. Food and Drug Administration. The FDA has determined that such clearance or approval is not necessary. The above immunohistochemical/dualISH markers are ordered and reviewed by the Pathologist. GROSS DESCRIPTION A. Received in formalin in a container labeled with the patient's name, date of , and antrum H. pylori and path is a 0.5 x 0.4 x 0.2 cm fragment of roach-pink mucosal tissue. Submitted in toto in A1. B. Received in formalin in a container labeled with the patient's name, date of , and GE junction biopsy is a 0.3 x 0.2 x 0.2 cm fragment of roach-pink mucosal tissue. Submitted in toto in B1. [facility] 07-30-2024 CPT:[id number]
--- NOTE | 2024-07-30 07:53 | PCM.POST.ANE ---
Anesthesia: Postop Eval I Current Vital Signs Temperature: 97.5 F Pulse Rate: 90 Blood Pressure: 121/77 Respiratory Rate: 16 Pulse Ox: 96 Oxygen Delivery Method: Room Air Assessment Airway patent: Yes Spontaneous unlabored respirations: Yes Mental status: Asleep nausea: No Vomiting: No Anesthesia Complication: No Fluid Hydration Crystalloid volume administer (ml): 300 Total IV fluid infused: 300 Progress Note Anesthesia document: Postop Eval 1 completed: Yes
--- NOTE | 2024-07-30 08:00 | OP.CCLET_ITS ---
07/30/2024 Alexi Fountain [address] [place] [address] Re : Upper GI endoscopy procedure for Nerissa Beach Dear Dr. Fountain This procedure was performed on Tuesday, July 30, 2024. My impressions and recommendations are as follows: Impressions : - Z-line irregular, 38 cm from the incisors. Biopsied. - Erythematous mucosa in the antrum. Biopsied. - Erythematous duodenopathy. Recommendations : - Discharge patient to home. - Resume previous diet. - Continue present medications. - Use sucralfate 1 gram PO TID for 2 weeks. - Await pathology results. My findings are described in the full procedure note, which is enclosed. If I can be of further assistance, please feel free to contact me at Doctor phone number(s): , Work: . Sincerely, MD Lauren Beasley MD 07/30/2024 7:59:54 AM This report has been signed electronically.
--- NOTE | 2024-07-30 08:00 | OP.EGD_ITS ---
Patient Name: Nerissa Beach Procedure Date: 07/30/2024 7:33 AM Date of : 1960 Age: 63 Procedure: Upper GI endoscopy Indications: Gardner's esophagus Providers: Lauren Bruner MD Referring MD: Alexi Fountain Medicines: Monitored Anesthesia Care Patient Profile: This is a 63 year old female. Complications: No immediate complications. Procedure: Pre-Anesthesia Assessment: - Prior to the procedure, a History and Physical was performed, and patient medications and allergies were reviewed. The patient's tolerance of previous anesthesia was also reviewed. The risks and benefits of the procedure and the sedation options and risks were discussed with the patient. All questions were answered, and informed consent was obtained. Prior Anticoagulants: The patient has taken no anticoagulant or antiplatelet agents. ASA Grade Assessment: Per anesthesia. After reviewing the risks and benefits, the patient was deemed in satisfactory condition to undergo the procedure. After obtaining informed consent, the endoscope was passed under direct vision. Throughout the procedure, the patient's blood pressure, pulse, and oxygen saturations were monitored continuously. The Endoscope was introduced through the mouth, and advanced to the second part of duodenum. The upper GI endoscopy was accomplished without difficulty. The patient tolerated the procedure well. Scope In: 7:40:00 AM Scope Out: 7:43:28 AM Total Procedure Duration Time 0 hours 3 minutes 28 seconds Findings: The Z-line was irregular and was found 38 cm from the incisors. Biopsies were taken with a cold forceps for histology. Mildly erythematous mucosa without bleeding was found in the gastric antrum. Biopsies were taken with a cold forceps for histology. Biopsies were taken with a cold forceps for Helicobacter pylori cultures. Mildly erythematous mucosa without active bleeding and with no stigmata of bleeding was found in the duodenal bulb. The cardia and gastric fundus were normal on retroflexion. Impression: - Z-line irregular, 38 cm from the incisors. Biopsied. - Erythematous mucosa in the antrum. Biopsied. - Erythematous duodenopathy. Recommendation: - Discharge patient to home. - Resume previous diet. - Continue present medications. - Use sucralfate 1 gram PO TID for 2 weeks. - Await pathology results. Procedure Code(s): --- Professional --- 86588, PT, Esophagogastroduodenoscopy, flexible, transoral; with biopsy, single or multiple Diagnosis Code(s): --- Professional --- K22.89, Other specified disease of esophagus K31.89, Other diseases of stomach and duodenum K22.70, Gardner's esophagus without dysplasia CPT copyright 2021 [employer]. All rights reserved. The codes documented in this report are preliminary and upon certified procedural coder review may be revised to meet current compliance requirements. MD Lauren Beasley MD 07/30/2024 7:59:54 AM This report has been signed electronically. Number of Addenda: 0 Note Initiated On: 07/30/2024 7:33 AM
--- NOTE | 2024-07-30 08:24 | PCM.POSTANE2 ---
Anesthesia Postop Eval I Sum Postop Eval Completion status Anesthesia document: Postop Eval 1 completed: Yes Anesthesia Postop Eval I Summary Anesthesia Postop Eval I Summary: Anesthesia Postop Eval I: Assessment Summary Airway patent Yes 07/30/24 07:54 [email or web address] Spontaneous unlabored Yes 07/30/24 07:54 [email or web address] respirations Mental status Asleep 07/30/24 07:54 [email or web address] nausea No 07/30/24 07:54 [email or web address] Vomiting No 07/30/24 07:54 [email or web address] Anesthesia Postop Eval I: Fluid Summary Crystalloid volume administer 300 07/30/24 07:54 [email or web address] (ml) Colloids volume administered ( ml) Blood Product volume administered (ml) Total IV fluid infused 300 07/30/24 07:54 [email or web address] Anesthesia Postop Eval I: Summary Notes Anesthesia Complication No 07/30/24 07:54 [email or web address] Anesthesia Complication Comment: Post-operative progress note Anesthesia: Postop Eval II Evaluation Mental status: Awake Pain Level: 0 nausea: No Vomiting: No Complications Anesthesia Complication: No
[2024-07-30 09:21] LABS: Bedside Glucose 150 mg/dL (74-106)
== END 2024-07-30 08:41 | disposition home or self-care (01) ==
LOC: EN 06:14 → AC 06:14
PROVIDERS: PCP Family Medicine; Referring Provider Family Medicine; Visit Provider Surgery
PROC: 0DJ08ZZ Inspection of Upper Intestinal Tract, Via Natural or Artificial Opening Endoscopic (ICD-10-PCS; CPT 43235; principal; 2024-07-30 07:25)
DX: K22.70 Barrett's esophagus without dysplasia (principal); E11.9 Type 2 diabetes mellitus without complications; E78.00 Pure hypercholesterolemia, unspecified; I10 Essential (primary) hypertension; K22.89 Other specified disease of esophagus; K31.89 Other diseases of stomach and duodenum; E07.9 Disorder of thyroid, unspecified; Z79.84 Long term (current) use of oral hypoglycemic drugs; Z79.890 Hormone replacement therapy; Z79.899 Other long term (current) drug therapy; Z87.891 Personal history of nicotine dependence; Z86.73 Personal history of transient ischemic attack (TIA), and cerebral infarction without residual deficits
CPT/HCPCS: 43239; 82962; 88305; 88342; J2405

== ENCOUNTER → 2024-08-31 | Outpatient (CLI) | payer MEDICARE, SELFPAY ==
[2024-08-31 13:17] LABS: ALB/GLOB Ratio 1.4 RATIO (0.9-2.4); AST(SGOT) 23 U/L (<=31); Alanine Aminotransfer ALT/SGPT 22 U/L (<=34); Albumin, Serum 4.3 g/dL (3.4-4.8); Alkaline Phosphatase 76 U/L (35-104); Anion Gap 14 (5-15); BUN 12 mg/dL (4-19); BUN/Creat Ratio 16.2 RATIO (10-20); Calcium,Total 9.4 mg/dL (7.6-11.0); Carbon Dioxide 25.1 mmol/L (21.0-32.0); Chloride 101 mmol/L (98-108); Cholesterol 166 mg/dL (<=200); Creatinine, Serum 0.75 mg/dL (0.70-1.20); EST Glomerular Filtration Rate 88 (>60); Globulin 3.1 g/dL (2.2-4.2); Glucose 136 mg/dL (70-99); High Density Lipoprotein 81 mg/dL; Low Density Lipoprotein Calc. 59 mg/dL; Protein, Total 7.4 g/dL (5.9-8.4); Sodium Level 140 mmol/L (133-145); Thyroid Stim Hormone (TSH) 0.448 uIU/mL (0.300-4.200); Total Bilirubin 0.25 mg/dL (0.00-1.30); Triglycerides 131 mg/dL; Very Low Density Lipoprotein 26 mg/dL (5-40); Vitamin D,25 Hydroxy 38.3 ng/mL (30-100); cholesterol:hdl ratio screen 2.04
[2024-08-31 13:32] LABS: Microalbumin,Random Urine < 12.0 mg/L (NO RANGE EST.); Microalbumin:Creatinine Ratio UNABLE TO CALCULATE mg/g CRE
== END | disposition home or self-care (01) ==
LOC: LAB 11:20
PROVIDERS: PCP Family Medicine; Referring Provider Family Medicine; Visit Provider Family Medicine
DX: E11.9 Type 2 diabetes mellitus without complications (principal); E55.9 Vitamin D deficiency, unspecified
CPT/HCPCS: 80053; 80061; 82043; 82306; 82570; 84443